=== PATIENT | male | born 1975 | race Hispanic/Latino ===

== ENCOUNTER 2019-08-03 17:39 | Observation (INO) | payer OTHER ==
[~2019-08-03] VITALS: Ht 177.8 cm; Wt 105.2 kg
[~2019-08-03 17:39] MED LIST: LOSARTAN POTAS100 MG PO; [UNRECOGNIZED DRUG - OTHER]
--- OUTSIDE RECORDS SUMMARY | 2019-08-03 17:43 | XMS REPORT ---
Author Author Michael Henry Organization [employer] Address Unknown Phone Unavailable Care Team Providers Care Position Classifier Name Role Phone Kaylee Henry Unavailable Allergies, Adverse Reactions, Alerts Substance Reaction Event Type penicillin Info Not Available Drug Allergy Problems Problem Type Condition Code Onset Dates Condition Statu s Assessment Vitamin D deficiency E55.9 Active Problem Prostatitis, unspecified prostatitis type N41.9 Active Assessment Essential hypertension I10 Activ e Problem Numbness and tingling of both legs R20.2 Active Problem Orthostatic hypotension I95.1 Acti ve Problem Mild acid reflux K21.9 Active Problem Former smoker Z87.891 Active Problem Essential hypertension I10 Activ e Problem Hypogonadism in male E29.1 Active Problem Vitamin D deficiency E55.9 Active Assessment Light headed R42 Active Assessment Hypogonadism in male E29.1 Active Assessment Mild acid reflux K21.9 Active Assessment Former smoker Z87.891 Active Medications Medication Code System Code Instructions Start Date End Date Status Dosage Vitamin D (Ergocalciferol) [facility] 61661043802 [id number] UNIT Orally onc e per week Active 1 capsule Excedrin Extra Strength ND 13715109250 250-250-65 MG Orally farhat ry 6 hrs Active 2 tablets as needed Testosterone Cypionate ND 36768177737 200 MG/ML Intramus cular every 2 weeks Mar 27, 2016 Active 1 ml Losartan Potassium-HCTZ [facility] 15803856980 100-25 MG Orally Once a day Active 1 tablet AndroGel Pump ND 14310249914 20.25 MG/ACT (1.62%) Transd ermal Once a day Mar 25, 2016 Active 1 application to eac h upper outer arm Vital Signs Date/Time: Apr 01, 2017 BMI 38.31 Index Weight 267 lbs Height 70 in Cardiac Monitoring Heart Rate 83 /min Blood Pressure Diastolic 94 mm Hg Blood Pressure Systolic 134 mm Hg Results No Known Results Summary Purpose [employer] Submission
--- OUTSIDE RECORDS SUMMARY | 2019-08-03 17:43 | XMS REPORT ---
Author Author Michael Murphy Organization [employer] Address Unknown Phone Unavailable Care Team Providers Care Associate Professor Of Sociology Name Role Phone Michela Murphy Unavailable Allergies No Known Allergies Problems Problem Type Condition Code Onset Dates Condition Statu s Problem Former smoker Z87.891 Active Problem Orthostatic hypotension I95.1 Acti ve Problem Hypogonadism in male E29.1 Active Problem Mixed hyperlipidemia E78.2 Active Problem Other chronic pain G89.29 Active Problem Obstructive sleep apnea syndrome G47.33 Active Problem Mild acid reflux K21.9 Active Problem Numbness and tingling of both legs R20.2 Active Problem Lumbago with sciatica, right side M54.41 Active Problem Lumbago with sciatica, left side M54.42 Active Problem Prostatitis, unspecified prostatitis type N41.9 Active Problem Vitamin D deficiency E55.9 Active Problem Essential hypertension I10 Activ e Medications Medication Code System Code Instructions Start Date End Date Status Dosage Losartan Potassium-HCTZ [facility] 49749476038 100-25 MG Orally Once a day Apr 26, 2017 Active 1 tablet Results No Known Results Summary Purpose [employer] Submission
--- OUTSIDE RECORDS SUMMARY | 2019-08-03 17:43 | XMS REPORT ---
Author Author Michael Murphy [facility] [employer] Address Unknown Phone Unavailable Care Team Providers Care Wire Threader Name Role Phone Michela Murphy Unavailable Allergies No Known Allergies Problems Problem Type Condition Code Onset Dates Condition Statu s Problem Hypogonadism in male E29.1 Active Problem Numbness and tingling of both legs R20.2 Active Problem Orthostatic hypotension I95.1 Acti ve Problem Prostatitis, unspecified prostatitis type N41.9 Active Problem Essential hypertension I10 Activ e Problem Former smoker Z87.891 Active Problem Vitamin D deficiency E55.9 Active Problem Obstructive sleep apnea syndrome G47.33 Active Problem Mixed hyperlipidemia E78.2 Active Problem Morbid obesity E66.01 Active Problem Lumbago with sciatica, left side M54.42 Active Problem Mild acid reflux K21.9 Active Problem Other chronic pain G89.29 Active Problem Lumbago with sciatica, right side M54.41 Active Medications Medication Code System Code Instructions Start Date End Date Status Dosage Losartan Potassium-HCTZ [facility] 24495747519 100-25 M G Orally Once a day (LAST REFILL. NEEDS TO BE SEEN ) Active 1 tab let Results No Known Results Summary Purpose [employer] Submission
--- OUTSIDE RECORDS SUMMARY | 2019-08-03 17:43 | XMS REPORT ---
Author Author Michael Mcarthur Organization [employer] Address Unknown Phone Unavailable Care Team Providers Care Forest Management Teacher Name Role Phone Jazmine Mcarthur CP Unavailable Allergies, Adverse Reactions, Alerts Substance Reaction Event Type penicillin Info Not Available Drug Allergy Problems Problem Type Condition Code Onset Dates Condition Statu s Problem Essential hypertension I10 Activ e Problem Hypogonadism in male E29.1 Active Problem Former smoker Z87.891 Active Problem Other chronic pain G89.29 Active Problem Lumbago with sciatica, right side M54.41 Active Problem Mixed hyperlipidemia E78.2 Active Problem Numbness and tingling of both legs R20.2 Active Problem Orthostatic hypotension I95.1 Acti ve Problem Lumbago with sciatica, left side M54.42 Active Problem Mild acid reflux K21.9 Active Assessment Varicose vein of leg I83.90 Active Assessment Mixed hyperlipidemia E78.2 Active Assessment Essential hypertension I10 Activ e Assessment Vitamin D deficiency E55.9 Active Assessment Lumbago with sciatica, left side M54.42 Active Assessment Hypogonadism in male E29.1 Active Assessment Other chronic pain G89.29 Active Problem Prostatitis, unspecified prostatitis type N41.9 Active Assessment Lumbago with sciatica, right side M54.41 Active Problem Vitamin D deficiency E55.9 Active Medications Medication Code System Code Instructions Start Date End Date Status Dosage Losartan Potassium-HCTZ ND 37698852219 100-25 MG Orally Once a day Apr 26, 2017 Active 1 tablet Excedrin Extra Strength ND 66137262699 250-250-65 MG Orally farhat ry 6 hrs Active 2 tablets as needed Vitamin D (Ergocalciferol) ND 73864934123 72232 UNIT Orally onc e per week Active 1 capsule AndroGel Pump ND 38459463052 20.25 MG/ACT (1.62%) Transd ermal Once a day June 03, 2017 Active 1 application to eac h shoulder in the morning Vitamin D (Ergocalciferol) [facility] 67179930457 51761 UNIT Ora lly once per week June 03, 2017 Nov 30, 2017 Active 1 capsule Vital Signs Date/Time: June 03, 2017 BMI 36.58 Index Weight 255 lbs Height 70 in Cardiac Monitoring Heart Rate 68 /min Blood Pressure Diastolic 82 mm Hg Blood Pressure Systolic 130 mm Hg Results No Known Results Summary Purpose [employer]Works Submission
--- OUTSIDE RECORDS SUMMARY | 2019-08-03 17:43 | XMS REPORT ---
Author Author Michael Servin Organization [employer] Address Unknown Phone Unavailable Care Team Providers Care Web Programmer Name Role Phone Henry Servin Unavailable Allergies No Known Allergies Problems Problem [...] with sciatica, left side M54.42 Active Assessment Acute non-recurrent maxillary sinusitis J01.00 Active Problem Prostatitis, unspecified prostatitis type N41.9 Active Problem Vitamin D deficiency E55.9 Active Problem Essential hypertension I10 Activ e Medications Medication Code System Code Instructions Start Date End Date Status Dosage Biaxin [facility] [id number] 500 mg Orally every 12 hrs Oct 29 8 Nov 08, 2017 Active 1 tablet Losartan Potassium-HCTZ ND 60371656882 100-25 MG Orally Once a day Apr 26, 2017 Active 1 tablet Excedrin Extra Strength [facility] 40077387054 250-250-65 MG Orally farhat ry 6 hrs Active 2 tablets as needed Vitamin D (Ergocalciferol) [facility] 21618305577 48151 UNIT Ora lly once per week June 03, 2017 Nov 30, 2017 Active 1 capsule AndroGel Pump [facility] 97876099618 20.25 MG/ACT (1.62%) Transd ermal Once a day June 03, 2017 Active 1 application to eac h shoulder in the morning Results No Known Results Summary Purpose [employer]ClinicalWorks Submission
--- OUTSIDE RECORDS SUMMARY | 2019-08-03 17:43 | XMS REPORT | Clinical Summary ---
Author Author [facility] Organization [facility] Address Unknown Phone Unavailable Care Team Providers Care Web Specialist Name Role Phone Asked, No Pcp PCP Unavailable Allergies Comments Active Allergy Reactions Severity Noted Date Penicillin Other (See 08/26/2018 Comments) Medications End Date Status Medication Sig Dispensed Refills Start Date Active losartan-hydrochlorothiaz 0 bill (HYZAAR) 100-25 mg 0 per tablet Active aspirin/acetaminophen/caf 2 tablets as 0 feine (EXCEDRIN EXTRA needed STRENGTH ORAL) 06/24/2019 azithromycin (ZITHROMAX) Take 1 tablet 6 tablet 0 250 MG tabletIndications: (250 mg 0 COVID-19 virus infection total) by mouth daily for 4 days. Take first 2 tablets together, then 1 every day until finished. 07/20/2019 albuterol (PROAIR HFA) 90 Inhale 2 1 Inhaler 0 mcg/actuation inhaler puffs every 4 0 (four) hours as needed for wheezing for up to 30 days. 07/20/2019 benzonatate (TESSALON) Take 1 21 capsule 0 100 MG capsule capsule (100 0 mg total) by mouth every 8 (eight) hours for 30 days. 08/01/2019 omeprazole (PriLOSEC) 20 Take 1 14 capsule 0 0 MG capsule capsule (20 0 mg total) by mouth daily for 14 days. Active Problems Not on file Encounters Care Team Description Date Type Specialty Emeterio Anderson MD Palpitations (Primary Dx) 07/31/2019 Emergency Emergency Medicine 07/31/2019 Travel Carlos Henley MD Abdominal pain, unspecified abdominal lo cation (Primary Dx); Liver mass 07/18/2019 Emergency Emergency Medicine Edmond Salas MD COVID-19 virus infection (Primary Dx); Viral pneumonia; Atypical chest pain 06/20/2019 Emergency Emergency Medicine 06/20/2019 Travel Danika Mckeon NP 06/12/2019 Telephone Internal Medicine Jesus Alberto Reagan MD Diarrhea, unspecified type (Primary Dx); Pharyngitis, unspecified etiology 06/09/2019 Emergency Emergency Medicine 06/09/2019 Travel after 08/02/2018 Social History Date Tobacco Use Types Packs/Day Years Used Former Smoker Cigarettes Smokeless Tobacco: Current User Drinks/Week oz/Week Comments Alcohol Use Not Currently Sex Assigned at Date Recorded Not on file Industry Job Start Date Occupation Not on file Not on file Not on file Travel End Travel History Travel Start No recent travel history available. Date Recorded COVID-19 Exposure Response 07/31/2019 9:28 AM CDT In the last month, have you been in contact with No / Unsure someone who was confirmed or suspected to have Coronavirus / COVID-19? Last Filed Vital Signs Reading Time Taken Comments Vital Sign 142/84 07/31/2019 11:10 AM CDT Blood Pressure 67 07/31/2019 11:10 AM CDT Pulse 36.4 C (97.5 F) 07/31/2019 9:25 AM CDT Temperature 20 07/31/2019 11:10 AM CDT Respiratory Rate 96% 07/31/2019 11:10 AM CDT Oxygen Saturation - - Inhaled Oxygen Concentration 106 kg (234 lb) 07/31/2019 9:20 AM CDT Weight 177.8 cm (5' 10") 07/31/2019 9:20 AM CDT Height 33.58 07/31/2019 9:20 AM CDT Body Mass Index Plan of Treatment Health Maintenance Due Date Last Done Comments INFLUENZA VACCINE 10/07/2019 Procedures Comments Procedure Name Priority Date/Time Associated Diag nosis XR CHEST 1 VW PORTABLE STAT 07/31/2019 10:54 AM CDT ESTIMATED GFR STAT 07/31/2019 9:35 AM CDT B NATRIURETIC PEP, I-STAT STAT 07/31/2019 9:35 AM CDT TROPONIN, I-STAT STAT 07/31/2019 9:35 AM CDT BASIC METABOLIC PANEL STAT 07/31/2019 9:35 AM CDT HC COMPLETE BLD COUNT STAT 07/31/2019 W/AUTO DIFF 9:35 AM CDT ECG 12-LEAD STAT 07/31/2019 9:22 AM CDT ECG ED PRELIMINARY Routine 07/31/2019 INTERPRETATION 9:[address] ABDOMEN PELVIS W STAT 07/18/2019 CONTRAST 6:[address] ANGIOGRAM PE CHEST STAT 07/18/2019 6:16 PM CDT URINALYSIS STAT 07/18/2019 5:06 PM CDT ESTIMATED GFR STAT 07/18/2019 5:00 PM CDT AMYLASE LEVEL STAT 07/18/2019 5:00 PM CDT TROPONIN, I-STAT STAT 07/18/2019 5:00 PM CDT COMPREHENSIVE METABOLIC STAT 07/18/2019 PANEL 5:00 PM CDT HC COMPLETE BLD COUNT STAT 07/18/2019 W/AUTO DIFF 5:00 PM CDT ECG 12-LEAD STAT 07/18/2019 4:59 PM CDT ECG ED PRELIMINARY Routine 07/18/2019 INTERPRETATION 4:[address] ANGIOGRAM PE CHEST STAT 06/20/2019 8:50 PM CDT ESTIMATED GFR STAT 06/20/2019 7:48 PM CDT TROPONIN, I-STAT STAT 06/20/2019 7:48 PM CDT HC COMPLETE BLD COUNT STAT 06/20/2019 W/AUTO DIFF 7:48 PM CDT COMPREHENSIVE METABOLIC STAT 06/20/2019 PANEL 7:48 PM CDT ECG 12-LEAD STAT 06/20/2019 7:46 PM CDT ECG ED PRELIMINARY Routine 06/20/2019 INTERPRETATION 7:41 PM CDT XR CHEST 2 VW STAT 06/09/2019 11:39 AM CDT COVID BIOREF (NCOVB) Routine 06/09/2019 11:15 AM CDT RESPIRATORY PATHOGEN Routine 06/09/2019 PANEL 11:15 AM CDT STREP SCREEN CULTURE Routine 06/09/2019 11:15 AM CDT INFLUENZA ANTIGEN TEST, Routine 06/09/2019 REFLEX NEGATIVE TO RPP 11:15 AM CDT GROUP A STREP, RAPID Routine 06/09/2019 ANTIGEN 11:15 AM CDT after 08/02/2018 Results * XR Chest 1 Vw Portable (07/31/2019 10:54 AM CDT) Specimen Narrative Performed At EXAMINATION: XR CHEST 1 VW PORTABLE [facility] CLINICAL HISTORY: 43 years Male palpi tations COMPARISON: 06/09/2019 IMPRESSION: No acute cardiopulmonary disease. FINDINGS: The cardiomediastinal silhouette, lungs , and regional skeletal structures are within normal limits for age. [facility]-[id number] Procedure Note Interface, Radiology Results Incoming - 07/31/2019 10:58 AM CDT EXAMINATION: XR CHEST 1 VW PORTABLE CLINICAL HISTORY: 43 years Male palpitations COMPARISON: 06/09/2019 IMPRESSION: No acute cardiopulmonary disease. FINDINGS: The cardiomediastinal silhouette, lungs, and regional skeletal structures are within normal limits for age. [facility]-[id number] Performing Organization Address City/State/Zipcode Ph one Number [facility] [address] [place] [address] * Estimated GFR (07/31/2019 9:35 AM CDT) Only the most recent of 3 results within the time period is included. Estimated GFR >=90 mL/min/1.73 m2 [facility] Comment: [facility] Catergory Units [place] Interpretation EMERGENCY CARE G1 >=90 CENTER Normal or high G2 60-89 Mildly decreased G3a 45-59 Mildly to moderately decreased G3b 30-44 Moderately to severely decreased G4 15-29 Severely decreased G5 <15 Kidney failure The eGFR was calculated using the Chronic Kidney Disease Epidemiology Collaboration (CKD-EPI) equation. Interpretation is based on recommendations of the National Kidney Foundation-Kidney Disease Outcomes Quality Initiative (NKF-KDOQI) published in 2014. Specimen Performing Organization Address City/[facility] Ph one [place] [address] PATHOLOGY AND GENOMIC MEDICINE[address] * Troponin, I-Stat (07/31/2019 9:35 AM CDT) Only the most recent of 3 results within the time period is included. Troponin, 0.00 0.00 - 0.08 ng/mL [facility] I-Stat Comment: [facility] 0.09 - 1.49 ng/ml [place] May indicate increased risk EMERGENCY CARE of acute CENTER coronary syndrome. >=1.5 ng/ml Consistent with acute myocardial infarction. The diagnostic value of a single normal or non-diagnostic result is questionable. Serial samples at 2-6 hour intervals are required to rule out acute myocardial injury. Specimen Blood Performing Organization Address [facility] one [place] [address] PATHOLOGY AND GENOMIC MEDICINE[address] * B natriuretic pep, I-Stat (07/31/2019 9:35 AM CDT) BNP, I-Stat <20 0 - 100 pg/mL [facility] Specimen Blood Performing Organization Address City/[facility] Ph one [place] [address] PATHOLOGY AND GENOMIC MEDICINE[address] * CBC with platelet and differential (07/31/2019 9:35 AM CDT) Only the most recent of 3 results within the time period is included. WBC 6.55 4.50 - 11.00 k/uL [facility] RBC 4.54 4.40 - 6.00 m/uL [facility] HGB 14.7 14.0 - 18.0 g/dL [facility] HCT 40.7 (L) 41.0 - 51.0 % [facility] MCV 89.6 82.0 - 100.0 fL [facility] MCH 32.4 27.0 - 34.0 pg [facility] MCHC 36.1 31.0 - 37.0 g/dL [facility] RDW - SD 42.1 37.0 - 55.0 fL [facility] MPV 9.4 8.8 - 13.2 fL [facility] Platelet count 228 150 - 400 k/uL [facility] Neutrophils 55.9 39.0 - 69.0 % [facility] Lymphocytes 33.6 25.0 - 45.0 % [facility] Monocytes 8.2 0.0 - 10.0 % [facility] Eosinophils 1.8 0.0 - 5.0 % [facility] Basophils 0.5 0.0 - 1.0 % [facility] Specimen Blood Performing Organization Address City/State/[facility] Ph one Number DEPARTMENT OF [address] [place] [address] PATHOLOGY AND GENOMIC MEDICINE, [address] * Basic metabolic panel (07/31/2019 9:35 AM CDT) Glucose 98 73 - 118 mg/dL [facility] BUN 11 7 - 22 mg/dL [facility] Calcium 8.9 8.0 - 10.3 mg/dL [facility] Creatinine 0.7 0.7 - 1.2 mg/dL [facility] Sodium 136 128 - 145 mEq/L [facility] Potassium 3.2 (L) 3.6 - 5.1 mEq/L [facility] Chloride 103 98 - 108 mEq/L [facility] CO2 27 18 - 33 mEq/L [facility] Anion gap 6@ANIO (L) 7 - 15 mEq/L [facility] Specimen Blood Performing Organization Address City/[facility] Ph one Number DEPARTMENT OF [address] [place] [address] PATHOLOGY AND GENOMIC MEDICINE, [address] * ECG 12 lead (07/31/2019 9:22 AM CDT) Only the most recent of 3 results within the time period is included. Ventricular 68 [facility] rate Atrial rate 68 [facility] NM interval 166 [facility] QRSD interval 82 [facility] QT interval 382 [facility] QTC interval 406 [facility] P axis 1 53 [facility] QRS axis 1 59 [facility] T wave axis 32 [facility] EKG impression Normal sinus rhythm with sinus [facility] MU SE arrhythmia-Normal ECG-In automated comparison with ECG of 18-JUL-2019 16:59,-Nonspecific T wave abnormality has replaced inverted T waves in Inferior leads- Specimen Narrative Performed At This result has an attachment that is n ot available. Performing Organization Address City/[facility] Ph one Number [facility] MUSE [address] [place] [address] * ECG ED Preliminary Interpretation - Not an Order (07/31/2019 9:20 AM CDT) Only the most recent of 3 results within the time period is included. Narrative Performed At Emeterio Anderson MD 07/31/2019 1 1:19 AM ECG ED Preliminary Interpretation - Not an Order Performed by: Emeterio Anderson MD Authorized by: Emeterio Anderson MD ECG reviewed by ED Physician in the abs ence of a distribution engineer: yes Interpretation: Interpretation: normal Rate: ECG rate: 68 ECG rate assessment: normal Rhythm: Rhythm: sinus rhythm Ectopy: Ectopy: none QRS: QRS axis: Normal QRS intervals: Normal Conduction: Conduction: normal ST segments: ST segments: Normal T waves: T waves: normal * CT Abdomen Pelvis W Contrast (07/18/2019 6:18 PM CDT) Specimen Narrative Performed At EXAMINATION: CT ABDOMEN PELVIS W CONTRAST [facility] CLINICAL HISTORY: left sided abdomina l pain TECHNIQUE: Multiple axial images of the abdomen and pelvis were obtained following intravenous administration of iodinated contrast. Sagittal and coronal computerized reformatted images were al so obtained.Automatic exposure control or iterative reconstruction techniques used to reduc e dose. COMPARISON: None. Impression: 1.Liver appears fatty infiltrated, with possible lesion in the right lobe measuring 1.2 cm. Adrenals, pancreas, k idneys, and spleen show no focal lesions. There is also a prominent and tortuous vessel at the head of the pancreas, not well characterized. On previous CT chest, this appears to r epresent collateralized arterial pathway such as an enlarged gastroduodenal mindy ry related to celiac axis stenosis. This could be further defined with CTA of th e abdomen. 2.Appendix is unremarkable. No evidence for acute diverticulitis. No bowel obstruction seen. Osseous structures ar e intact. Summary: 1.No acute intra-abdominal abnormalitie s are noted. 2.Follow-up outpatient MRI abdomen eval uation recommended for 1.2 cm right lobe liver lesion. [id number] Procedure Note Interface, Radiology Results Incoming - 07/18/2019 6:33 PM CDT EXAMINATION: CT ABDOMEN PELVIS W CONTRAST CLINICAL HISTORY: left sided abdominal pain TECHNIQUE: Multiple axial images of the abdomen and pelvis were obtained following intravenous administration of iodinated contrast. Sagittal and coronal computerized reformatted images were also obtained.Automatic exposure control or iterative reconstruction techniques used to reduce dose. COMPARISON: None. Impression: 1.Liver appears fatty infiltrated, with possible lesion in the right lobe measuring 1.2 cm. Adrenals, pancreas, kidneys, and spleen show no focal lesions. There is also a prominent and tortuous vessel at the head of the pancreas, not well characterized. On previous CT chest, this appears to represent collateralized arterial pathway such as an enlarged gastroduodenal artery related to celiac axis stenosis. This could be further defined with CTA of the abdomen. 2.Appendix is unremarkable. No evidence for acute diverticulitis. No bowel obstruction seen. Osseous structures are intact. Summary: 1.No acute intra-abdominal abnormalities are noted. 2.Follow-up outpatient MRI abdomen evalu ation recommended for 1.2 cm right lobe liver lesion. [id number] Performing Organization Address City/State/Zipcode Ph one Number [facility] [address] [place] [address] * CT Angiogram Pe Chest (07/18/2019 6:16 PM CDT) Only the most recent of 2 results within the time period is included. Specimen Narrative Performed At [facility] CLINICAL HISTORY: PE suspected high pretest prob TECHNIQUE: CT angiographic images of the chest were obtained during intravenous administration of iodinated contrast. Computerized reformatted images and 3-D MIP images were also obt ained and archived (CT pulmonary embolus protocol). CT imaging was performed with iterative reconstruction techniques and/or automated exposure control to reduce ra diation dose COMPARISON: 06/20/2019 FINDINGS: Pulmonary arterial enhancement is techn ically adequate. No pulmonary embolism. Lungs are clear. Previously described v jayashree subtle groundglass opacities have resolved. Airways are patent. No pleural or pericardial effusion. The heart is normal in size. No aortic aneurysm or dissection. The liver is fatty. Bones are intact. IMPRESSION: No pulmonary embolism or other acute pr ocess. [id number] Procedure Note Interface, Radiology Results Incoming - 07/18/2019 6:28 PM CDT EXAMINATION: CT ANGIOGRAM PE CHEST CLINICAL HISTORY: PE suspected high pretest prob TECHNIQUE: CT angiographic images of the chest were obtained during intravenous administration of iodinated contrast. Computerized reformatted images and 3-D MIP images were also obtained and archived (CT pulmonary embolus protocol). CT imaging was performed with iterative reconstruction techniques and/or automated exposure control to reduce radiation dose COMPARISON: 06/20/2019 FINDINGS: Pulmonary arterial enhancement is technically adequate. No pulmonary embolism. Lungs are clear. Previously described very subtle groundglass opacities have resolved. Airways are patent. No pleural or pericardial effusion. The heart is normal in size. No aortic aneurysm or dissection. The liver is fatty. Bones are intact. IMPRESSION: No pulmonary embolism or other acute process. [facility]-[id number] Performing Organization Address City/[facility] one Number [facility] [address] [address] * Urinalysis (07/18/2019 5:06 PM CDT) Glucose, UA Negative Negative [facility] Bilirubin, UA Negative Negative [facility] Ketones, UA Negative Negative [facility] Specific 1.010 1.001 - 1.035 [facility] gravity, UA [facility] Blood, UA Trace (A) Negative [facility] pH, UA 6.0 5.0 - 8.5 [facility] Protein, UA Negative Negative [facility] Urobilinogen, <2.0 <2.0 [facility] Nitrite, UA Negative Negative [facility] Leukocyte Negative Negative [facility] esterase, UA [facility] Color, UA Yellow [facility] Appearance, UA Clear [facility] Specimen Urine Performing Organization Address City/[facility] [place] [address] PATHOLOGY AND GENOMIC MEDICINE, [address] * Amylase level (07/18/2019 5:00 PM CDT) Amylase 50 14 - 97 U/L [facility] Specimen Blood Performing Organization Address City/[facility] Ph one [place] [address] PATHOLOGY AND GENOMIC MEDICINE, [address] * Comprehensive metabolic panel (07/18/2019 5:00 PM CDT) Only the most recent of 2 results within the time period is included. Sodium 140 128 - 145 mEq/L [facility] Potassium 3.3 (L) 3.6 - 5.1 mEq/L [facility] CO2 28 18 - 33 mEq/L [facility] Chloride 105 98 - 108 mEq/L [facility] Glucose 91 73 - 118 mg/dL [facility] Calcium 9.6 8.0 - 10.3 mg/dL [facility] BUN 8 7 - 22 mg/dL [facility] Creatinine 0.9 0.7 - 1.2 mg/dL [facility] Alkaline 81 53 - 128 U/L [facility] phosphatase [facility] ALT 34 10 - 47 U/L [facility] AST 32 11 - 38 U/L [facility] Total bilirubin 0.9 0.2 - 1.6 mg/dL [facility] Albumin 4.5 3.3 - 5.5 g/dL [facility] Protein 7.6 6.4 - 8.1 g/dL [facility] Anion gap 7@ANIO 7 - 15 mEq/L [facility] A/G ratio 1.5 0.7 - 3.8 [facility] Specimen Blood Performing Organization Address City/State/[facility] Ph one Number DEPARTMENT OF [address] [place] [address] PATHOLOGY AND GENOMIC MEDICINE, [address] * XR Chest 2 Vw (06/09/2019 11:39 AM CDT) Specimen Narrative Performed At EXAMINATION: XR CHEST 2 VW [facility] CLINICAL HISTORY: cough sore throat COMPARISON: None. IMPRESSION: Heart and mediastinum: Cardiomediastina l silhouette is normal in contour. Lungs and pleura: Lungs are clear. Ther e is no focal airspace disease, pleural effusion or pneumothorax. Bones: No acute osseous abnormality. [id number] Dictated and approved by radiology resi dent/fellow: Everardo Cespedes M.D. I, Jorje Vasquez MD, personally reviewed the images and resident's/fellow's findings and agree with the final repor t. Procedure Note Interface, Radiology Results Incoming - 06/09/2019 12:50 PM CDT EXAMINATION: XR CHEST 2 VW CLINICAL HISTORY: cough sore throat COMPARISON: None. IMPRESSION: Heart and mediastinum: Cardiomediastinal silhouette is normal in contour. Lungs and pleura: Lungs are clear. There is no focal airspace disease, pleural effusion or pneumothorax. Bones: No acute osseous abnormality. [facility]-[id number] Dictated and approved by residential solar sales consultant/fellow: Everardo Cespedes M.D. I, Jorje Vasquez MD, personally reviewed the images and resident's/fellow's findings and agree with the final report. Performing Organization Address City/State/[place] [address] * Respiratory pathogen panel (06/09/2019 11:15 AM CDT) [facility] Respiratory Negative for all pathogens [facility] pathogen panel tested: [facility] Negative for Adenovirus [facility] Negative for Coronavirus HKU1 Negative for Coronavirus NL63 Negative for Coronavirus 229E Negative for Coronavirus OC43 Negative for Human Metapneumovirus Negative for Rhinovirus/Enterovirus Negative for Influenza A Negative for Influenza A/H1 Negative for Influenza A/H3 Negative for Influenza A/H1-2009 Negative for Influenza B Negative for Parainfluenza Virus 1 Negative for Parainfluenza Virus 2 Negative for Parainfluenza Virus 3 Negative for Parainfluenza Virus 4 Negative for Respiratory Syncytial Virus Negative for Bordetella pertussis Negative for Chlamydophila pneumoniae Negative for Mycoplasma pneumoniae This real-time PCR assay detects the presence of nucleic acids (RNA or DNA) for the respiratory pathogens listed. A result of "Not-detected" does not exclude the possibility of the presence of one or more pathogens at concentrations less than the detectable limits of the assay. Comment: Specimen Information Specimen Source: Nares Specimen Site: Right Specimen Nares - Right Performing Organization Address [facility] Ph one Number [facility] DEPARTMENT OF [address] [place] [address] PATHOLOGY AND GENOMIC MEDICINE [facility] WORSHIP [address] [place] [address] * Influenza antigen test, reflex negative to RPP (06/09/2019 11:15 AM CDT) [facility] Influenza Negative for Influenza A/B [facility] antigen antigen. [facility] Comment: HOSPITAL Specimen Information Specimen Source: Nares Specimen Site: Right Specimen Nares - Right Performing Organization Address City/State/Zipcode Ph one Number [facility] DEPARTMENT OF [address] [place] [address] PATHOLOGY AND GENOMIC MEDICINE [facility]IP [address] [place] [address] * COVID BioRef (NCOVB) (06/09/2019 11:15 AM CDT) [facility] COVID BioRef Presumptive Positive for Not Detected BIORE FERENCE (NCOVB) 2019-nCoV (A) LAB Comment: Testing performed at [facility] [address] [address] NOTE: The viral concentration is likely to be near or below the limit of detection. Re-collection of a new sample is suggested, if clinically indicated. NOTE: The COVID-19 assay has been cleared by the U.S. Food and Drug Administration under the Emergency Use Authorization (EUA). [email or web address] is designated as a high complexity laboratory by the Clinical Laboratory Improvement Amendments of 1988(CLIA) and is qualified to perform this test. ASSAY INFORMATION: Real Time RT-PCR Specimen Serum Performing Organization Address [facility] Ph one Number [facility] DEPARTMENT OF [address] [place] [address] PATHOLOGY AND GENOMIC MEDICINE [facility] [address] [place] [id number] * Group A strep, rapid antigen (06/09/2019 11:15 AM CDT) Group A strep, Negative for Group A [facility] rapid antigen Streptococcus antigen. [facility] result Comment: [place] Specimen [facility] EMERGENCY CARE Specimen Source: Throat CENTER Specimen Site: Not otherwise specified Specimen Throat - Not otherwise specified Performing Organization Address [facility] Ph one [place] [address] PATHOLOGY AND GENOMIC MEDICINE, [facility] * Strep screen culture (06/09/2019 11:15 AM CDT) Strep screen No beta hemolytic Streptococci [place] N culture isolate isolated [facility] Comment: HOSPITAL Specimen Information Specimen Source: Throat Specimen Site: Not otherwise specified Specimen Throat - Not otherwise specified Performing Organization Address [facility] [place] one Number [facility] DEPARTMENT OF [address] [place] [address] PATHOLOGY AND [facility] [place] [address] HOSPITAL after 08/02/2018 Additional Health Concerns Resolved Time Infection Noted Time Coronavirus COVID-19 (D+C) 06/13/2019 11:00 AM CDT Insurance Type Payer Benefit Subscriber ID Effective Phone Address Plan / Dates Group PPO AETNA AETNA PPO xxxxxxxxxx [id number] OPEN resent CHOICE Advance Directives For more information, please contact: [phone] Patient [employer] Explanation Type Date Recorded Advance Directives, 06/20/2019 7:53 PM Living Will and 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
--- OUTSIDE RECORDS SUMMARY | 2019-08-03 17:43 | XMS REPORT ---
Author Author Michael Murphy [facility] eClinicalWorks Address Unknown Phone Unavailable Care Team Providers Care Crossing Guard Name Role Phone Michela Murphy Unavailable Allergies [...] Problem Mild acid reflux K21.9 Active Assessment Hypogonadism in male E29.1 Active Problem Prostatitis, unspecified prostatitis type N41.9 Active Problem Vitamin D deficiency E55.9 Active Medications Medication Code System Code Instructions Start Date End Date Status Dosage AndroGel Pump [facility] [place] 2] [id number] 20.25 MG/ACT (1.62%) Transd ermal Once a day June 03, 2017 Active 1 application to eac h shoulder in the morning Results No Known Results Summary Purpose eClinicalWorks Submission
--- OUTSIDE RECORDS SUMMARY | 2019-08-03 17:43 | XMS REPORT | Continuity of Care Document ---
Author Author Agiliance SINGH Antunez Organization [employer] Address Unknown Phone Unavailable Care Team Providers Care Pathology Laboratory Aides Teacher Name Role Phone [employer] Unavailable Un available Problems Problem Status Onset Date Classification Date Reported Comments Source Essential hypertension Active Problem 07/28/2019 [facility] Hypogonadism in male Active Problem 07/28/2019 [facility] Former smoker Active Problem 05/16/2018 [facility] Prostatitis, unspecified prostatitis type Active Diagnosis 06/22/2018 [facility] Vitamin D deficiency Active Problem 07/28/2019 [facility] Other chronic pain Active Problem 07/28/2019 [facility] Lumbago with sciatica, right side Active Diagnosis 0 06/22/2018 [facility] Mixed hyperlipidemia Active Problem 07/28/2019 [facility] Numbness and tingling of both legs Active Problem 01/2019 [facility] Orthostatic hypotension Active Problem 07/13/2019 [facility] Lumbago with sciatica, left side Active Diagnosis 0 06/22/2018 [facility] Mild acid reflux Active Problem 07/28/2019 [facility] Light headed Active Diagnosis 04/03/2017 [facility] Varicose vein of leg Active Diagnosis 06/16/2017 [facility] Obstructive sleep apnea syndrome Active Problem [facility] Morbid obesity Active Problem 07/28/2019 [facility] Acute non-recurrent maxillary sinusitis Active Diagnosis 11/07/2017 [facility] Fatigue Active Diagnosis 11/07/2017 [facility] Chest pain Active Diagnosis 11/07/2017 [facility] Acute nasopharyngitis Active Problem 10/04/2015 [facility] Low back pain at multiple sites Active Diagnosis 0 03/13/2016 [facility] Heat exhaustion Active Diagnosis 09/27/2015 [facility] Hospital discharge follow-up A ctive Diagnosis 0 09/27/2015 [facility] Daytime somnolence Active Problem 07/13/2019 [facility] Snoring Active Problem 07/13/2019 [facility] Screening for prostate cancer Active Diagnosis 0 06/22/2018 [facility] Screening for colon cancer Act jannette Diagnosis 0 06/22/2018 [facility] Routine physical examination A ctive Diagnosis 0 06/22/2018 [facility] COVID-19 virus infection Active Problem 07/13/2019 [facility] Anxiety Active Problem 07/28/2019 [facility] Other specified respiratory disorders Active Diagnosis 06/20/2019 [facility] Complaint of paresthesia Active Problem 07/28/2019 [facility] Psychophysiological insomnia A ctive Problem [facility] History of 2019 novel coronavirus disease (COVID-19) Active Problem 07/28/2019 [facility] Sore throat Active Diagnosis 07/28/2019 [facility] Medications Medication Details Route Status Patient Instructions Ordering Provider Order Date Source Zithromax Z-Juan 2 tablets on the first day, then 1 tablet daily for 4 days Orally Active 250 MG Orally Once a day [place] 07/20/2019 [facility] Tessalon Perles 1 capsule as n eeded Orally Active 100 MG Orally Three times a day [place] 07/20/2019 [facility] ProAir HFA 1 puff as needed Inhalation Active 108 (90 Base) MCG/ACT Inhalation every 4 hrs [place] 06/15/2019 [facility] HydrOXYzine HCl 1 tablet as ne eded Orally Active 10 MG Orally every -6 8 hrs [place] 06/15/2019 [facility] Biaxin 1 tablet Orally Active 500 mg Orally every 12 hrs [place] 10/29/2017 [facility] Medrol as directed & to be sta rted mon. am as discussed w/ pt Orally Active 4 mg Orally as directed over 6 days [place] 10/22/2017 [facility] AndroGel Pump 1 application to each shoulder in the morning Transdermal Active 20.25 MG/ACT (1.62%) Transdermal Once a day [place] 06/03/2017 [facility] Vitamin D (Ergocalciferol) 1 c apsule Orally Active 09381 UNIT Orally once per week LAST REFILL, NEEDS BLOOD WORK Bhupinder Gilbert 06/03/2017 [facility] Losartan Potassium-HCTZ 1 tabl et Orally Active 100-25 MG Orally Once a day Ghebranious 04/26/2017 [facility] Testosterone Cypionate 1 ml Intramuscular Active 200 MG/ML Intramuscular every 2 weeks [place] 03/27/2016 [facility] Testosterone Cypionate 1 ml Intramuscular Active 200 MG/ML Intramuscular every 2 weeks Carl 03/27/2016 [facility] Vitamin D (Ergocalciferol) 1 c apsule Orally Active 96313 UNIT Orally once per week [place] 03/27/2016 [facility] AndroGel Pump 1 application to each upper outer arm Transdermal Active 20.25 MG/ACT (1.62%) Transdermal Once a day [place] 03/25/2016 [facility] AndroGel Pump 1 application to each upper outer arm Transdermal Active 20.25 MG/ACT (1.62%) Transdermal Once a day [place] 03/25/2016 [facility] Medrol (Juan) as directed Orally Active 4 MG Orally as directed Carl 03/10/2016 [facility] Naproxen 1 tablet as needed Orally Active 500 MG Orally every 12 hrs prn [place] 03/10/2016 [facility] Flomax [address] capsule [address] the same meal each day Orally Active 0.4 MG Orally Once a day Ghebr anious 07/20/2015 [facility] Vitamin D (Ergocalciferol) 1 c apsule Orally Active 93667 UNIT Orally weekly [place] 11/21/2014 [facility] Vitamin D (Ergocalciferol) 1 c apsule Orally Active 16620 UNIT Orally once per week LAST REFILL, NEEDS BLOOD WORK [place] [facility] Excedrin Extra Strength 2 tabl ets as needed Orally Active 250-250-65 MG Orally every 6 hrs [place] [facility] Losartan Potassium-HCTZ 1 tabl et Orally Active 100-25 MG Orally Once a day [place] [facility] Excedrin Extra Strength 2 tabl ets as needed Orally Active 250-250-65 MG Orally every 6 hrs [place] [facility] Losartan Potassium-HCTZ TAKE 1 TABLET BY MOUTH EVERY DAY NA Active 100-25 MG G[place]bran[place] [facility] Citalopram Hydrobromide 1 tabl et Orally Active 10 MG Orally Once a day [place] [facility] Trazodone HCl 1 tablet at bedt ricardo as needed Orally Active 50 MG Orally Once a day [place] [facility] Allergies, Adverse Reactions, Alerts Substance Category Reaction Severity Reaction type Status Date Reported Comments Source penicillin Adverse Reaction Info Not Available Adverse Reaction Active 06/15/2019 [facility] Immunizations Immunization Date Given Site Status Last Updated Comments Source FLU 3YRS & [place] [address] 10/01/2015 completed [facility] PNEUMOCOCCAL VACCINE 10/01/2015 completed [facility] Results No Data Provided for This Section Pathology Reports No Data Provided for This Section Diagnostic Reports No Data Provided for This Section Consultation Notes No Data Provided for This Section Discharge Summaries No Data Provided for This Section History and Physicals No Data Provided for This Section Vital Signs Vital Sign Value Date Comments Source Weight 263 08/26/2018 [facility] Height 70 0 08/26/2018 [facility] Heart Rate 72 08/26/2018 [facility] Diastolic (mm Hg) 84 08/26/2018 [facility] Systolic (mm Hg) 132 08/26/2018 [facility] Weight 260 06/21/2018 [facility] Height 70 0 06/21/2018 [facility] Heart Rate 75 06/21/2018 [facility] Diastolic (mm Hg) 92 06/21/2018 [facility] Systolic (mm Hg) 128 06/21/2018 [facility] Weight 260 10/22/2017 [facility] Height 70 0 10/22/2017 [facility] Temperature Oral (F) 97.7 F 10/22/2017 [facility] Heart Rate 75 10/22/2017 [facility] Diastolic (mm Hg) 86 10/22/2017 [facility] Systolic (mm Hg) 134 10/22/2017 [facility] Weight 255 06/03/2017 [facility] Height 70 0 06/03/2017 [facility] Heart Rate 68 06/03/2017 [facility] Diastolic (mm Hg) 82 06/03/2017 [facility] Systolic (mm Hg) 130 06/03/2017 [facility] Weight 267 04/01/2017 [facility] Height 70 0 04/01/2017 [facility] Heart Rate 83 04/01/2017 [facility] Diastolic (mm Hg) 94 04/01/2017 [facility] Systolic (mm Hg) 134 04/01/2017 [facility] Weight 260 03/10/2016 [facility] Height 70 0 03/10/2016 [facility] Heart Rate 70 03/10/2016 [facility] Diastolic (mm Hg) 74 03/10/2016 [facility] Systolic (mm Hg) 134 03/10/2016 [facility] Weight 256 10/01/2015 [facility] Height 70 0 10/01/2015 [facility] Heart Rate 84 10/01/2015 [facility] Diastolic (mm Hg) 86 10/01/2015 [facility] Systolic (mm Hg) 144 10/01/2015 [facility] Weight 262 09/23/2015 [facility] Height 70 0 09/23/2015 [facility] Heart Rate 94 09/23/2015 [facility] Diastolic (mm Hg) 64 09/23/2015 [facility] Systolic (mm Hg) 116 09/23/2015 [facility] Weight 260 01/28/2015 [facility] Height 70 1 03/30/2014 [facility] Heart Rate 80 01/28/2015 [facility] Diastolic (mm Hg) 80 01/28/2015 [facility] Systolic (mm Hg) 130 01/28/2015 [facility] Encounters Location Location Details Encounter Type Encounter Number Reason For Visit Attending Provider ADM Date DC Date Status Source [facility] [employer] Physical- Came in on Thursday 11/16, but forms have to be filled out by or [id number] 11/20/2014 11/20/2014 [facility] [employer] Physical- Came in on Thursday 11/16, but forms have to be filled out by or [id number] 11/20/2014 11/20/2014 [facility] [employer] Physical- Came in on Thursday 11/16, but forms have to be filled out by or [id number] 11/20/2014 11/20/2014 [facility] [employer] Physical- Came in on Thursday 11/16, but forms have to be filled out by or [id number] 11/20/2014 11/20/2014 [facility] [employer] Physical- Came in on Thursday 11/16, but forms have to be filled out by or [id number] 11/20/2014 11/20/2014 [facility] [employer] Physical- Came in on Thursday 11/16, but forms have to be filled out by or [id number] 11/20/2014 11/20/2014 [facility] [employer] Physical- Came in on Thursday 11/16, but forms have to be filled out by or [id number] 11/20/2014 11/20/2014 [facility] [employer] Physical- Came in on Thursday 11/16, but forms have to be filled out by or [id number] 11/20/2014 11/20/2014 [facility] lab results - LMOM [id number] 11/21/2014 11/21/2014 [facility] lab results - LMOM [id number] 11/21/2014 11/21/2014 [facility] lab results - LMOM [id number] 11/21/2014 11/21/2014 [facility] lab results - LMOM [id number] 11/21/2014 11/21/2014 [facility] lab results - LMOM [id number] 11/21/2014 11/21/2014 [facility] lab results - LMOM [id number] 11/21/2014 11/21/2014 [facility] lab results - LMOM [id number] 11/21/2014 11/21/2014 [facility] lab results - LMOM [id number] 11/21/2014 11/21/2014 [facility] not feeling good [id number] 01/28/2015 01/28/2015 [facility] not feeling good [id number] 01/28/2015 01/28/2015 [facility] not feeling good [id number] 01/28/2015 01/28/2015 [facility] not feeling good [id number] 01/28/2015 01/28/2015 [facility] not feeling good [id number] 01/28/2015 01/28/2015 [facility] not feeling good [id number] 01/28/2015 01/28/2015 [facility] not feeling good [id number] 01/28/2015 01/28/2015 [facility] not feeling good [id number] 01/28/2015 01/28/2015 [facility] Unknown [id number] 07/21/2015 07/21/2015 [facility] Unknown [id number] 07/21/2015 07/21/2015 [facility] Unknown [id number] 07/21/2015 07/21/2015 [facility] Unknown [id number] 07/21/2015 07/21/2015 [facility] Unknown [id number] 07/21/2015 07/21/2015 [facility] Unknown [id number] 07/21/2015 07/21/2015 [facility] Unknown [id number] 07/21/2015 07/21/2015 [facility] FOLLOW UP FROM ER [id number] 09/23/2015 09/23/2015 [facility] FOLLOW UP FROM ER [id number] 09/23/2015 09/23/2015 [facility] FOLLOW UP FROM ER [id number] 09/23/2015 09/23/2015 [facility] FOLLOW UP FROM ER [id number] 09/23/2015 09/23/2015 [facility] FOLLOW UP FROM ER [id number] 09/23/2015 09/23/2015 [facility] FOLLOW UP FROM ER [id number] 09/23/2015 09/23/2015 [facility] Referral [id number] 09/24/2015 09/24/2015 [facility] Referral [id number] 09/24/2015 09/24/2015 [facility] Referral [id number] 09/24/2015 09/24/2015 [facility] Referral [id number] 09/24/2015 09/24/2015 [facility] Referral [id number] 09/24/2015 09/24/2015 [facility] TMT- [id number] 10/01/2015 10/01/2015 [facility] TMT- [id number] 10/01/2015 10/01/2015 [facility] TMT- [id number] 10/01/2015 10/01/2015 [facility] TMT-Saji [id number] 10/01/2015 10/01/2015 [facility] CHECK BLOOD SUGAR [id number] 03/10/2016 03/10/2016 [facility] CHECK BLOOD SUGAR [id number] 03/10/2016 03/10/2016 [facility] CHECK BLOOD SUGAR [id number] 03/10/2016 03/10/2016 [facility] Clinical Advice During Busin ess Hours [id number] 03/23/2016 03/23/2016 [facility] Clinical Advice During Busin ess Hours [id number] 03/23/2016 03/23/2016 [facility] Unknown [id number] 03/27/2016 03/27/2016 [facility] Procedures No Data Provided for This Section Assessment and Plan No Data Provided for This Section Plan of Care No Data Provided for This Section Social History Social History Date Source Social History ElementQualifiersDate Rep orted 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 Status , Is cook islander your prim riki language? Yes Mar 27, 2016 Flu Vaccine: . 01/2016Mar 27, 2016 children . 4 Mar 27, 2016 Depression Screening: . negative Mar 27, 2016 Tobacco Use: . Additional Findings: Tobacco User Rocio ws tobacco, Are you a: current, How many packs per day? 1 can every 3 days Mar 27, 2016 Use of recreational / street drugs? . Answer: No Mar 27, 2016 Last Colonoscopy: . never Mar 27, 2016 Marital Status: . Nadir Ram Mar 27, 2016 Caffeine intake? . Status: Yes, What type: Soft Drinks Mar 27, 2016 Do you exercise? . Answer: No Mar 27, 2016 Last Bone Density: . never Mar 27, 2016 Do you drink alcohol? . Status: No Mar 27, 2016 03/27/2016 [facility] Family History Value Date S ource QualifierDescriptionCommentDate Reported Maternal Grandmother alive Comment not available Mar 27, 2016 Paternal Grandmother Comment not available Mar 27, 2016 Siblings alive healthy Mar 27, 2016 Maternal Grandfather alive Comment not available Mar 27, 2016 Children alive Comment not available Mar 27, 2016 Father alive healthy Mar 27, 2016 Paternal Grandfather Comment not available Mar 27, 2016 Mother alive breast cancer Mar 27, 2016 Other: Comment not available Mar 27, 2016 03/28/2016 [facility] QualifierDescriptionCommentDate Reported Maternal Grandmother alive Comment not available Mar 10, 2016 Paternal Grandmother Comment not available Mar 10, 2016 Siblings alive healthy Mar 10, 2016 Maternal Grandfather alive Comment not available Mar 10, 2016 Children alive Comment not available Mar 10, 2016 Father alive healthy Mar 10, 2016 Paternal Grandfather Comment not available Mar 10, 2016 Mother alive breast cancer Mar 10, 2016 Other: Comment not available Mar 10, 2016 03/13/2016 [facility] QualifierDescriptionCommentDate Reported Maternal Grandmother alive Comment not available October 01, 2015 Paternal Grandmother Comment not available October 01, 2015 Siblings alive healthy October 01, 2015 Maternal Grandfather alive Comment not available October 01, 2015 Children alive Comment not available October 01, 2015 Father alive healthy October 01, 2015 Paternal Grandfather Comment not available October 01, 2015 Mother alive breast cancer October 01, 2015 Other: Comment not available October 01, 2015 10/04/2015 [facility] Advance Directives No Data Provided for This Section Functional Status No Data Provided for This Section
--- OUTSIDE RECORDS SUMMARY | 2019-08-03 17:43 | XMS REPORT ---
Author Author Michael Burris Organization [employer] Address Unknown Phone Unavailable Care Team Providers Care Sales Operations Manager Name Role Phone Nabor Burris CP Unavailable Allergies No Known Allergies Problems Problem Type Condition Code Onset Dates Condition Statu s Problem Other chronic pain G89.29 Active Problem Morbid obesity E66.01 Active Problem Mixed hyperlipidemia E78.2 Active Problem Complaint of paresthesia R20.2 Act jannette Problem COVID-19 virus infection U07.1 Act jannette Problem Psychophysiological insomnia F51.04 Active Problem Daytime somnolence R40.0 Active Problem Obstructive sleep apnea syndrome G47.33 Active Problem Anxiety F41.9 Active Problem Snoring R06.83 Active Problem Essential hypertension I10 Activ e Problem Hypogonadism in male E29.1 Active Problem Orthostatic hypotension I95.1 Acti ve Problem Vitamin D deficiency E55.9 Active Problem Mild acid reflux K21.9 Active Medications Medication Code System Code Instructions Start Date End Date Status Dosage Losartan Potassium-HCTZ [facility] [id number] 100-25 MG Orally Once a day Active 1 tablet Results No Known Results Summary Purpose [employer]Works Submission
--- OUTSIDE RECORDS SUMMARY | 2019-08-03 17:43 | XMS REPORT ---
Author Author Michael Murphy Organization [employer] Address Unknown Phone Unavailable Care Team Providers Care Lens Shaper Grinder Name Role Phone Michela Murphy Unavailable Allergies [...] Problem Mild acid reflux K21.9 Active Medications No Known Medications Results No Known Results Summary Purpose [employer] Submission
--- OUTSIDE RECORDS SUMMARY | 2019-08-03 17:43 | XMS REPORT ---
Author Author Michael Murphy [facility] [employer] Address Unknown Phone Unavailable Care Team Providers Care Paraplanner Name Role Phone Michela Murphy Unavailable Allergies No Known Allergies Problems Problem Type Condition Code Onset Dates Condition Statu s Problem Essential hypertension I10 Activ e Problem Hypogonadism in male E29.1 Active Problem Former smoker Z87.891 Active Problem Prostatitis, unspecified prostatitis type N41.9 Active Problem Vitamin D deficiency E55.9 Active Problem Other chronic pain G89.29 Active [...]
--- OUTSIDE RECORDS SUMMARY | 2019-08-03 17:44 | XMS REPORT ---
Author Author Michael Henry [facility] [employer] Address Unknown Phone Unavailable Care Team Providers Care Relay Engineer Name Role Phone Kaylee Henry Unavailable Allergies, Adverse Reactions, Alerts Substance Reaction Event Type penicillin Info Not Available Drug Allergy Encounters Encounter Location Date Unknown [facility] July 20, 2015 FOLLOW UP FROM ER [facility] September 23, 2015 Referral [facility] September 24, 2015 TMT-Dr.G Roe [facility] October 01, 2015 Racing Physical- Came in on Thursday 11/16, but forms have to be filled out by or [facility] Nov 20, 2014 lab results - LMOM [facility] Nov 21, 2014 not feeling good [facility] Jan 28, 2015 CHECK BLOOD SUGAR [facility] Mar 10, 2016 Problems Problem Type Condition ICD-9 Code Onset Dates Condition Statu s Assessment Hypogonadism in male E29.1 Active Assessment Essential hypertension I10 Activ e Assessment Vitamin D deficiency E55.9 Active Assessment Numbness and tingling of both legs R20.2 Active Assessment Low back pain at multiple sites M54.5 Active Problem Orthostatic hypotension I95.1 Acti ve Problem Hypogonadism in male E29.1 Active Problem Numbness and tingling of both legs R20.2 Active Problem Vitamin D deficiency E55.9 Active Problem Prostatitis, unspecified prostatitis type N41.9 Active Problem Essential hypertension I10 Activ e Problem Former smoker Z87.891 Active Medications Medication Code System Code Instructions Start Date End Date Status Dosage Medrol (Juan) Unknown 0 4 MG Orally as directed Mar 10, 2016Mar Active as directed Excedrin Extra Strength [facility] [address]-56 250-250-65 MG Or ally every 6 hrs Active 2 tablets as needed Naproxen [facility] [address]-78 500 MG Orally every 12 hrs prn Ja n 2016Mar 20, 2016 Active 1 tablet as needed Losartan Potassium-HCTZ [facility] 07498254372 100-25 MG Orally Once a day Active 1 tablet Social History Social History Element Qualifiers Date Reported 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 Status , Is thai your prim riki language? Yes Mar 10, 2016 Flu Vaccine: . 01/2016Mar 10, 2016 children . 4 Mar 10, 2016 Depression Screening: . negative Mar 10, 2016 Tobacco Use: . Additional Findings: Toba advertising account manager User Chews tobacco, Are you a: current, How many packs per day? 1 can every 3 days Mar 10, 2016 Use of recreational / street drugs? . Answer: No Mar 10, 2016 Last Colonoscopy: . never Mar 10, 2016 Marital Status: . Nadir Burris Mar 10, 2016 Caffeine intake? . Status: Yes, What type: Soft Drinks J 2016 Do you exercise? . Answer: No Mar 10, 2016 Last Bone Density: . never Mar 10, 2016 Do you drink alcohol? . Status: No Mar 10, 2016 Family history Qualifier Description Comment Date Reported Maternal Grandmother alive Comment not available Mar Paternal Grandmother Comment not available Mar Siblings alive healthy Mar 10, 2016 Maternal Grandfather alive Comment not available Mar Children alive Comment not available Mar 10 Father alive healthy Mar 10, 2016 Paternal Grandfather Comment not available Mar Mother alive breast cancer Mar 10, 2016 Other: Comment not available Mar 10 17 Vital Signs Date/Time: Mar 10, 2016 Weight 260 lbs Height 70 in Cardiac Monitoring Heart Rate 70 /min Blood Pressure Diastolic 74 mm Hg Blood Pressure Systolic 134 mm Hg Results Lumbar AP/LAT Xray Summary Purpose eClinicalWorks Submission
--- OUTSIDE RECORDS SUMMARY | 2019-08-03 17:44 | XMS REPORT ---
Author Michael Wasserman Organization [employer] Address Unknown Phone Unavailable Care Team Providers Care Cemetery Manager Name Role Phone Nabor Burris CP Unavailable Allergies No Known Allergies Problems Problem Type Condition Code Onset Dates Condition Statu s Problem Hypogonadism in male E29.1 Active Problem Other chronic pain G89.29 Active Problem Mild acid reflux K21.9 Active Problem Complaint of paresthesia R20.2 Act jannette Problem Psychophysiological insomnia F51.04 Active Problem History of 2019 novel coronavirus disease (COVID-19) Z 86.19 Active Problem Obstructive sleep apnea syndrome G47.33 Active Problem Mixed hyperlipidemia E78.2 Active Problem Anxiety F41.9 Active Problem Morbid obesity E66.01 Active Assessment Psychophysiological insomnia F51.04 Active Assessment Sore throat J02.9 Active Assessment Anxiety F41.9 Active Problem Essential hypertension I10 Activ e Assessment History of 2019 novel coronavirus disease (COVID-19) Z 86.19 Active Problem Vitamin D deficiency E55.9 Active Medications Medication Code System Code Instructions Start Date End Date Status Dosage Vitamin D (Ergocalciferol) [facility] [id number] 9[address] UNIT Orally once per week LAST REFILL, NEEDS BLOOD WORK Active 1 capsu le Excedrin Extra Strength ND 16434788186 250-250-65 MG Orally farhat ry 6 hrs Active 2 tablets as needed Citalopram Hydrobromide ND 74150580852 10 MG Orally Once a day Active 1 tablet Trazodone HCl ND 58421357096 50 MG Orally Once a day Active 1 tablet at bedtime as needed AndroGel Pump ND 04286100886 20.25 MG/ACT (1.62%) Transd ermal Once a day June 03, 2017 Active 1 application to eac h shoulder in the morning ProAir HFA [facility] 18769275860 108 (90 Base) MCG/ACT Inhala tion every 4 hrs June 15, 2019 Active 1 puff as needed Zithromax Z-Juan ND 10197598059 250 MG Orally Once a day July 062019July 25, 2019 Active 2 tablets on the first day, then 1 tablet daily for 4 days Magui Wheat [facility] 77550746928 100 MG Orally Three times a da y July 20, 2019 July 30, 2019 Active 1 capsule as needed Losartan Potassium-HCTZ [facility] 29944288191 100-25 MG Orally Once a day Active 1 tablet HydrOXYzine HCl [facility] 06476618121 10 MG Orally every -6 8 hrs Apri l 2019 Active 1 tablet as needed Results No Known Results Summary Purpose eClinicalWorks Submission
--- OUTSIDE RECORDS SUMMARY | 2019-08-03 17:44 | XMS REPORT ---
Author Author Michael Henry [employer] Address Unknown Phone Unavailable Care Team Providers Care Bass Singer Name Role Phone Kaylee Henry CP Unavailable Encounters Encounter Location Date Unknown [facility] July 20, 2015 FO[facility] UP FROM ER [facility] September 23, 2015 Referral [facility] September 24, 2015 TMT-Dr[facility]G Roe [facility] October 01, 2015 Racing Physical- Came in on Thursday 11/16, but forms have to be filled out by MD or DO [facility] Nov 20, 2014 lab results - LMOM [facility] Nov 21, 2014 not feeling good [facility] Jan 28, 2015 CHECK BLOOD SUGAR [facility] Mar 10, 2016 Clinical Advice During Business Hours [facility] Mar 23, 2016 Problems Problem Type Condition ICD-9 Code Onset Dates Condition Statu s Problem Orthostatic hypotension I95.1 Acti ve Problem Hypogonadism in male E29.1 Active Problem Numbness and tingling of both legs R20.2 Active Problem Vitamin D deficiency E55.9 Active Problem Prostatitis, unspecified prostatitis type N41.9 Active Problem Essential hypertension I10 Activ e Problem Former smoker Z87.891 Active Medications Medication Code System Code Instructions Start Date End Date Status Dosage AndroGel Pump [facility] [address]-43 20.25 MG/ACT (1. 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 Status , Is monegasque your prim riki language? Yes Mar 10, 2016 Flu Vaccine: . 01/2016Mar 10, 2016 children . 4 Mar 10, 2016 Depression Screening: . negative Mar 10, 2016 Tobacco Use: . 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 1 can every 3 days Mar 10, 2016 Use of recreational / street drugs? . Answer: No Mar 10, 2016 Last Colonoscopy: . never Mar 10, 2016 Marital Status: . Nadir [place] Mar 10, 2016 Caffeine intake? . Status: Yes, What type: Soft Drinks J 2016 Do you exercise? . Answer: No Mar 10, 2016 Last Bone Density: . never Mar 10, 2016 Do you drink alcohol? . Status: No Mar 10, 2016 Summary Purpose eClinicalWorks Submission
--- OUTSIDE RECORDS SUMMARY | 2019-08-03 17:44 | XMS REPORT ---
Author Author [facility] t Organization [facility] Address [address] [place] [address] Dr. Singh. [address] [place] [address] Phone Unavailable Care Team Providers Care Licensed Embalmer Supervisor Name Role Phone Asked, Pcp No PCP Unavailable Justin MARIANO, Angel Storm Attphys Kale MARIANO, Nathan Gonzalez Attphys Josue MARIANO, Artemio Pruitt Attphys [phone] Linda VEHICLE CHECK IN CLERK, Virgilio Garnica Attphys [phone] Tez MARIANO, Javier Granda Attphys [phone] Payers Payer Name Policy Type Policy Number Effective Date Expiration Date Higinio bauer AETNAAETNA PPO OPEN [id number] xxxxxxxxxx 2015 00:00:00 [facility] Problems Condition Name Condition Details Condition Category Status Onset Date Resolution Date Last Treatment Date Treating Clinician Comments Source Essential hypertension Esse ntial hypertension Active Problem 07/28/2019 [facility] Problem Active 2019-07-28 02:04:09 [facility] Hypogonadism in male Hypo gonadism in male Active Problem 07/28/2019 [facility] Problem Active 2019-07-28 02:04:09 [facility] Former smoker Form er smoker Active Problem 05/16/2018 [facility] Problem Active 2 02:00:42 [facility] Prostatitis, unspecified prostatitis type Prostatitis, unspecified prostatitis type Active Diagnosis 06/22/2018 [facility] Diagnosis Active 2018-06-22 02:03:34 [facility] Vitamin D deficiency Ashely min D deficiency Active Problem 07/28/2019 [facility] Problem Active 2019-07-28 02:04:09 [facility] Other chronic pain Othe r chronic pain Active Problem 07/28/2019 [facility] Problem Active 2019-07-28 02:04:09 [facility] Lumbago with sciatica, right side Lumbago with sciatica, right side Active Diagnosis 06/22/2018 [facility] Diagnosis Active 2018-06-22 02:03:34 [facility] Mixed hyperlipidemia Mixe d hyperlipidemia Active Problem 07/28/2019 [facility] Problem Active 2019-07-28 02:04:09 [facility] Orthostatic hypotension Orth ostatic hypotension Active Problem 07/13/2019 [facility] Problem Active 2019-07-13 02:03:07 [facility] Lumbago with sciatica, left side Lumbago with sciatica, left side Active Diagnosis 06/22/2018 [facility] Diagnosis Active 2018-06-22 02:03:34 [facility] Mild acid reflux Mild acid reflux Active Problem 07/28/2019 [facility] Problem Active 02:04:09 [facility] Light headed Ligh t headed Active Diagnosis 04/03/2017 [facility] Diagnosis Active 2017-04-03 03:03:14 [facility] Varicose vein of leg Vari cose vein of leg Active Diagnosis 06/16/2017 [facility] Diagnosis Active 2017-06-16 02:03:43 [facility] Obstructive sleep apnea syndrome Obstructive sleep apnea syndrome Active Problem 07/28/2019 [facility] Problem Active 2019-07-28 02:04:09 [facility] Morbid obesity Morb id obesity Active Problem 07/28/2019 [facility] Problem Active 02:04:09 [facility] Acute non-recurrent maxillary sinusitis Acute non- recurrent maxillary sinusitis Active Diagnosis 11/07/2017 [facility] Diagnosis Active 2017-11-07 02:00:45 [facility] Fatigue Fati roopa Active Diagnosis 11/07/2017 [facility] Diagnosis Active 2017-11-07 02:00:45 [facility] Chest pain Ches t pain Active Diagnosis 11/07/2017 [facility] Diagnosis Active 2017-11-07 02:00:45 [facility] Acute nasopharyngitis Acut e nasopharyngitis Active Problem 10/04/2015 [facility] Problem Active 2015-10-04 02:19:50 [facility] Low back pain at multiple sites Low back pain at multiple sites Active Diagnosis 03/13/2016 [facility] Diagnosis Active 2016-03-13 03:06:02 [facility] Heat exhaustion Heat exhaustion Active Diagnosis 09/27/2015 [facility] Diagnosis Active 2015-09-27 02:13:15 [facility] Hospital discharge follow-up H ospital discharge follow- up Active Diagnosis 09/27/2015 [facility] Diagnosis Active 2015-09-27 02:13:15 [facility] Daytime somnolence Dayt ricardo somnolence Active Problem 07/13/2019 [facility] Problem Active 2019-07-13 02:03:07 [facility] Snoring Snor ing Active Problem 07/13/2019 [facility] Problem Active 2019-07-13 02:03:07 [facility] Screening for prostate cancer Screening for prostate cancer Active Diagnosis 06/22/2018 [facility] Diagnosis Active 2018-06-22 02:03:34 [facility] Screening for colon cancer Scr eening for colon cancer Active Diagnosis 06/22/2018 [facility] Diagnosis Active 2018-06-22 02:03:34 [facility] Routine physical examination R outine physical examination Active Diagnosis 06/22/2018 [facility] Diagnosis Active 2018-06-22 02:03:34 [facility] COVID-19 virus infection COVI D-19 virus infection Active Problem 07/13/2019 [facility] Problem Active 2019-07-13 02:03:07 [facility] Anxiety Anxi ety Active Problem 07/28/2019 [facility] Problem Active 2019-07-28 02:04:09 [facility] Other specified respiratory disorders Other specified respiratory disorders Active Diagnosis 06/20/2019 [facility] Diagnosis Active 2019-06-20 02:02:11 [facility] Complaint of paresthesia Comp laint of paresthesia Active Problem 07/28/2019 [facility] Problem Active 2019-07-28 02:04:09 [facility] Psychophysiological insomnia P sychophysiological insomnia Active Problem 07/28/2019 [facility] Problem Active 2019-07-28 02:04:09 [facility] History of 2019 novel coronavirus disease (COVID-19) History of 2019 novel coronavirus disease (COVID-19) Active Problem 07/28/2019 [facility] Problem Active 2 02:04:09 [facility] Sore throat Sore throat Active Diagnosis 07/28/2019 [facility] Diagnosis Active 2019-07-28 02:04:09 [facility] Allergies, Adverse Reactions, Alerts Allergy Name Allergy Type Status Severity Reaction(s) Onset Date Inacti ve Date Treating Clinician Comments Source penicillin penicillin Active Info Not Available 2019-06-15 00:00:0 0 [facility] Penicillin Propensity to adverse reactions to drug Active Other (See Comments) 2018-08-26 00:00:00 Eric Lees Social History Social Habit Start Date Stop Date Quantity Comments Source History of tobacco use Cigarette Smoker Eric Lees Sex Assigned At Valeri kaliabrittnee Lees Exposure to SARS-CoV-2 (event) Not sure Eric Lees Alcohol intake 2019-07-31 00:00:00 2019-07-31 00:00:00 Ex-drinker (fi nding) Eric Lees Occupation: 2016-03-27 00:00:00 2016-03-27 00:00:00 [facility] Smoking Status Start Date Stop Date Source Former smoker 2019-07-31 00:00:00 2019-07-31 00:00:00 Eric Lees Medications Ordered Medication Name Filled Medication Name Start Date Stop Da te Current Medication? Ordering Clinician Indication Dosage Frequency Signature (SIG) Comments Components Source Vitamin D (Ergocalciferol) 2019-07-28 02:04:09 Yes Nabor Ram 1 capsule [facility] Excedrin Extra Strength 2019-07-28 02:04:09 Yes Nabor Mar tinez [address] [facility] Losartan Potassium-HCTZ 2019-07-28 02:04:09 Yes Nabor Mar tinez [address] [facility] Citalopram Hydrobromide 2019-07-28 02:04:09 Yes Nabor Mar tinez [address] [facility] Trazodone HCl 2019-07-28 02:04:09 Yes Nabor Ram 1 tablet at bedtime as needed [facility] Zithromax Z-Juan 2019-07-20 00:00:00 Yes Nabor Ram 2 tablets on the first day, then 1 tablet daily for 4 days [facility] Tessalon Perles 2019-07-20 00:00:00 Yes Nabor Ram [address] [facility] omeprazole (PriLOSEC) 20 MG capsule 2019-07-18 00:00:0 0 2019-08-01 23:59:00 No 20mg QD Take 1 capsule (20 mg total) by mouth gerard mata for 14 days. Eric Lees aspirin/acetaminophen/caffeine (EXCEDRIN EXTRA STRENGTH ORAL ) 2019-06-20 19:31:26 Yes 2 tablets as needed Eric Lees albuterol (PROAIR HFA) 90 mcg/actuation inhaler 2019-06-20 00:00:00 2019-07-20 23:59:00 No 2{puff} Q4H Inhale 2 puffs every 4 (four) hours as needed for wheezing for up to 30 days. Eric Meth odist benzonatate (TESSALON) 100 MG capsule 2019-06-20 00:00 :00 2019-07-20 23:59:00 No 100mg Q8H Take 1 capsule (100 mg total) by mouth every 8 (eight) hours for 30 days. Eric Lees azithromycin (ZITHROMAX) 250 MG tablet 2019-06-07 4 00:00:00 2019-06-24 23:59:00 No COVID-19 virus infection 250mg QD Take 1 tablet (250 mg total) by mouth daily for 4 days. Take first 2 tablets together, then 1 every day until finished. Eric Lees ProAir HFA 2019-06-15 00:00:00 Yes Nabor Ram [address] [facility] HydrOXYzine HCl 2019-06-15 00:00:00 Yes Nabor Ram [address] [facility] losartan-hydrochlorothiazide (HYZAAR) 100-25 mg per tablet 2019-04-15 00:00:00 Yes Reyes thodist Biaxin 2017-10-29 00:00:00 Yes Henry Servin [address] [facility] Medrol 2017-10-22 00:00:00 Yes Henry Servin as directed & to be started mon. am as discussed w/ pt [facility] AndroGel Pump 2017-06-03 00:00:00 Yes Nabor Ram 1 application to each shoulder in the morning [facility] Vitamin D (Ergocalciferol) 2017-06-03 00:00:00 Yes Jazmine Gilbert [address] [facility] Losartan Potassium-HCTZ 2017-04-26 00:00:00 Yes Michela hansen [address] [facility] Testosterone Cypionate 2016-03-27 00:00:00 Yes Kaylee Peel er [address] [facility] Testosterone Cypionate 2016-03-27 00:00:00 Yes Kaylee Peel er [address] [facility] Vitamin D (Ergocalciferol) 2016-03-27 00:00:00 Yes Tanisha any Carl [address] [facility] AndroGel Pump 2016-03-25 00:00:00 Yes Kaylee Carl 1 application to each upper outer arm [facility] AndroGel Pump 2016-03-25 00:00:00 Yes Kaylee Carl 1 application to each upper outer arm [facility] Excedrin Extra Strength 2016-03-13 03:06:02 Yes Kaylee Carl [address] [facility] Medrol (Juan) 2016-03-10 00:00:00 Yes Kaylee Carl as directed [facility] Naproxen 2016-03-10 00:00:00 Yes Kaylee Carl [address] [facility] Losartan Potassium-HCTZ 2015-09-27 02:13:15 Yes Amir Ghe branious TAKE 1 TABLET BY MOUTH EVERY DAY [facility] Flomax 2015-07-20 00:00:00 Yes Amir Ghebranious 1 capsule 30 minutes after the same meal each day [facility] Vitamin D (Ergocalciferol) 2014-11-21 00:00:00 Yes Hattie chadwick Jose [address] [facility] Vital Signs Vital Name Observation Time Observation Value Comments Source Systolic blood pressure 2019-07-31 11:10:00 142 mm[Hg] Eric Lees Diastolic blood pressure 2019-07-31 11:10:00 84 mm[Hg] Eric Wilsonist Heart rate 2019-07-31 11:10:00 67 /min Eric Wilsonist Respiratory rate 2019-07-31 11:10:00 20 /min [place] Lees Oxygen saturation in Arterial blood by Pulse oximetry 07-30 11:10:00 96 /min Eric Wilsonist Body temperature 2019-07-31 09:25:13 36.39 Laura [place] Hindu Body height 2019-07-31 09:20:00 177.8 cm Reyes Hindu Body weight 2019-07-31 09:20:00 106.142 kg Eric Wilsonist BMI 2019-07-31 09:20:00 33.58 kg/m2 Reyes [facility] Weight 2018-08-26 21:00:00 [facility] Height 2018-08-26 21:00:00 [facility] Heart Rate 2018-08-26 21:00:00 [facility] Diastolic (mm Hg) 2018-08-26 21:00:00 [facility] Systolic (mm Hg) 2018-08-26 21:00:00 [facility] Weight 2018-06-21 20:30:00 [facility] Height 2018-06-21 20:30:00 [facility] Heart Rate 2018-06-21 20:30:00 [facility] Diastolic (mm Hg) 2018-06-21 20:30:00 [facility] Systolic (mm Hg) 2018-06-21 20:30:00 [place] [facility] Weight 2017-10-22 16:00:00 [facility] Height 2017-10-22 16:00:00 [facility] Temperature Oral (F) 2017-10-22 16:00:00 97.7 F [facility] Heart Rate 2017-10-22 16:00:00 [facility] Diastolic (mm Hg) 2017-10-22 16:00:00 [facility] Systolic (mm Hg) 2017-10-22 16:00:00 [place] [facility] Weight 2017-06-03 16:30:00 [facility] Height 2017-06-03 16:30:00 [facility] Heart Rate 2017-06-03 16:30:00 [facility] Diastolic (mm Hg) 2017-06-03 16:30:00 [facility] Systolic (mm Hg) 2017-06-03 16:30:00 [place] [facility] Weight 2017-04-01 21:30:00 [facility] Height 2017-04-01 21:30:00 [facility] Heart Rate 2017-04-01 21:30:00 [facility] Diastolic (mm Hg) 2017-04-01 21:30:00 [facility] Systolic (mm Hg) 2017-04-01 21:30:00 [place] [facility] Weight 2016-03-10 20:45:00 [facility] Height 2016-03-10 20:45:00 [facility] Heart Rate 2016-03-10 20:45:00 [facility] Diastolic (mm Hg) 2016-03-10 20:45:00 [facility] Systolic (mm Hg) 2016-03-10 20:45:00 [facility] Weight 2015-10-01 14:30:00 [facility] Height 2015-10-01 14:30:00 [facility] Heart Rate 2015-10-01 14:30:00 [facility] Diastolic (mm Hg) 2015-10-01 14:30:00 [facility] Systolic (mm Hg) 2015-10-01 14:30:00 [facility] Weight 2015-09-23 20:00:00 [facility] Height 2015-09-23 20:00:00 [facility] Heart Rate 2015-09-23 20:00:00 [facility] Diastolic (mm Hg) 2015-09-23 20:00:00 [facility] Systolic (mm Hg) 2015-09-23 20:00:00 [facility] Weight 2015-01-28 21:15:00 [facility] Height 2015-01-28 21:15:00 [facility] Heart Rate 2015-01-28 21:15:00 [facility] Diastolic (mm Hg) 2015-01-28 21:15:00 [facility] Systolic (mm Hg) 2015-01-28 21:15:00 [place] [facility] Procedures Procedure Date / Time Performed Performing Clinician Sourc e XR CHEST 1 VW PORTABLE 2019-07-31 10:54:24 Emeterio Anderson HC COMPLETE BLD COUNT W/AUTO DIFF 2019-07-31 09:35:00 Shun Anderson BASIC METABOLIC PANEL 2019-07-31 09:35:00 Emeterio Anderson TROPONIN, I-STAT 2019-07-31 09:35:00 Emeterio Anderson Angel Reyes M ethodist B NATRIURETIC PEP, I-STAT 2019-07-31 09:35:00 Shun Andersonael Angel Reyes Hindu ESTIMATED GFR 2019-07-31 09:35:00 Justin Emeterio Ortiz Eric Me thodist ECG 12-LEAD 2019-07-31 09:22:08 JustinEmeterio Eric Me thodist ECG ED PRELIMINARY INTERPRETATION 2019-07-31 09:20:43 Shun Anderson axelhimanshu Lees CT ABDOMEN PELVIS W CONTRAST 2019-07-18 18:18:[address] ANGIOGRAM PE CHEST 2019-07-18 18:16:38 Carlos Fairchild URINALYSIS 2019-07-18 17:06:00 Carlos Fairchild HC COMPLETE BLD COUNT W/AUTO DIFF 2019-07-18 17:00:00 Leonela Fairchild COMPREHENSIVE METABOLIC PANEL 2019-07-18 17:00:00 Carlos Fairchild TROPONIN, I-STAT 2019-07-18 17:00:00 Carlos Fairchild AMYLASE LEVEL 2019-07-18 17:00:00 Carlos Fairchild ESTIMATED GFR 2019-07-18 17:00:00 Carlos Fairchild ECG 12-LEAD 2019-07-18 16:59:49 Carlos Fairchild ECG ED PRELIMINARY INTERPRETATION 2019-07-18 16:54:[address] ANGIOGRAM PE CHEST 2019-06-20 20:50:45 Edmond Bean Hindu COMPREHENSIVE METABOLIC PANEL 2019-06-20 19:48:00 Jayden Bean Hindu HC COMPLETE BLD COUNT W/AUTO DIFF 2019-06-20 19:48:00 Ken Bean Hindu TROPONIN, I-STAT 2019-06-20 19:48:00 Edmond Bean ussabi Hindu ESTIMATED GFR 2019-06-20 19:48:00 Edmond Bean stobrittnee Hindu ECG 12-LEAD 2019-06-20 19:46:04 Edmond Bean Valeri bhardwaj Hindu ECG ED PRELIMINARY INTERPRETATION 2019-06-20 19:41:44 Ken Bean Artemio Eric Hindu XR CHEST 2 VW 2019-06-09 11:39:40 Melly Hartmann on Hindu GROUP A STREP, RAPID ANTIGEN 2019-06-09 11:15:00 Melly Hartmann INFLUENZA ANTIGEN TEST, REFLEX NEGATIVE TO RPP 2019-06-09 11 :15:00 Melly Hartmann STREP SCREEN CULTURE 2019-06-09 11:15:00 Melly Hartmann RESPIRATORY PATHOGEN PANEL 2019-06-09 11:15:00 Melly Hartmann COVID BIOREF (NCOVB) 2019-06-09 11:15:00 Melly Hartmann Plan of Care Planned Activity Planned Date Details Comments Source Future Scheduled Test 2019-10-07 00:00:00 INFLUENZA VACCINE [code = INFLUENZA VACCINE] Eric Lees Encounters Start Date/Time End Date/Time Encounter Type Admission Type [facility] Care Department Encounter ID Source 2019-07-31 00:00:00 2019-07-31 00:00:00 Emergency EMETERIO ANDERSON [facility] [id number] Eric Lees 2019-07-20 13:15:00 2019-07-20 13:15:00 Outpatient [facility] [id number] 2019-07-18 00:00:00 2019-07-18 00:00:00 Emergency CARLOS FAIRCHILD [facility] [id number] Reyes Hindu 2019-07-15 14:36:00 2019-07-15 14:36:00 Emergency E [facility]BL [facility] [id number] [facility] 2019-07-12 07:22:00 2019-07-12 07:22:00 Outpatient [facility] [id number] eClinicalWorks 2019-07-12 07:19:00 2019-07-12 07:19:00 Outpatient [facility] [id number] eClinicalWorks 2019-07-05 09:55:00 2019-07-05 09:55:00 Emergency E MHBL [facility]BL [id number] MHBL 2019-06-20 00:00:00 2019-06-20 00:00:00 Emergency JAYDEN BEAN [facility] [id number] [facility] 2019-06-15 10:45:00 2019-06-15 10:45:00 Outpatient [facility] [id number] eClinicalWorks 2019-06-09 00:00:00 2019-06-09 00:00:00 Emergency MELLY HARTMANN [id number] [facility] 2018-08-26 16:00:00 2018-08-26 16:00:00 Outpatient [facility] [id number] eClinicalWorks 2018-06-21 15:30:00 2018-06-21 15:30:00 Outpatient [facility] [id number] eClinicalWorks 2018-05-15 19:37:00 2018-05-15 19:37:00 Outpatient [facility] [id number] eClinicalWorks 2018-03-03 16:10:00 2018-03-03 16:10:00 [facility]patient [facility] [id number] eClinicalWorks 2017-12-30 19:09:00 2017-12-30 19:09:00 Outpatient [facility] [id number] eClinicalWorks 2017-12-20 13:45:00 2017-12-20 13:45:00 [facility]patient [facility] [id number] eClinicalWorks 2017-10-29 16:55:00 2017-10-29 16:55:00 [facility]patient [facility] [id number] eClinicalWorks 2017-10-28 11:46:00 2017-10-28 11:46:00 [facility]patient [facility] [id number] eClinicalWorks 2017-10-22 11:00:00 2017-10-22 11:00:00 Outpatient [facility] [id number] eClinicalWorks 2017-06-30 12:22:00 2017-06-30 12:22:00 Outpatient [facility] [id number] eClinicalWorks 2017-06-30 09:48:00 2017-06-30 09:48:00 [facility]patient [facility] [id number] eClinicalWorks 2017-06-03 11:30:00 2017-06-03 11:30:00 Outpatient [facility] [id number] eClinicalWorks 2017-04-01 15:30:00 2017-04-01 15:30:00 Outpatient [facility] [id number] eClinicalWorks 2016-03-27 19:31:00 2016-03-27 19:31:[address] [facility] [id number] [facility] 2016-03-27 13:31:00 2016-03-27 13:31:00 [facility] [id number] eClinicalWorks 2016-03-23 21:10:00 2016-03-23 21:10:00 Clinical Advice During Busi ness Hours [facility]ALT [facility] [id number] [facility] 2016-03-23 21:10:00 2016-03-23 21:10:00 Clinical Advice During Busi ness Hours MHIEALT [facility] [id number] [facility] 2016-03-23 15:10:00 2016-03-23 15:10:00 Outpatient [facility] [id number] eClinicalWorks 2016-03-10 20:45:00 2016-03-10 20:45:[address] BLOOD SUGAR MHIEALT [facility] [id number] [facility] 2016-03-10 20:45:00 2016-03-10 20:45:[address] CHECK BLOOD SUGAR MHIEALT [facility] [id number] [facility] 2016-03-10 20:45:00 2016-03-10 20:45:00 CHECK BLOOD SUGAR MHIEALT [facility] [id number] [facility] 2016-03-10 14:45:00 2016-03-10 14:45:00 Outpatient [facility] [id number] [facility] 2015-10-01 15:30:00 2015-10-01 15:30:00 TMT-Dr.G SARAH [facility] [id number] [facility] 2015-10-01 15:30:00 2015-10-01 15:30:00 TMT-Dr.G SARAH [facility] [id number] [facility] 2015-10-01 15:30:00 2015-10-01 15:30:00 TMT-Dr.G SMITH [facility] [id number] [facility] 2015-10-01 14:30:00 2015-10-01 14:30:00 TMT-Dr.G SMITH [facility] [id number] [facility] 2015-10-01 09:30:00 2015-10-01 09:30:00 Outpatient [facility] [place] [address] [facility] 2015-09-24 17:48:00 2015-09-24 17:48:00 Referral SARAH [facility] [id number] [facility] 2015-09-24 17:48:00 2015-09-24 17:48:00 Referral SARAH [facility] [id number] [facility] 2015-09-24 17:48:00 2015-09-24 17:48:00 Referral SARAH [facility] [id number] [facility] 2015-09-24 16:48:00 2015-09-24 16:48:00 Referral SARAH Roe [facility] [id number] [facility] 2015-09-24 16:48:00 2015-09-24 16:48:00 Referral SARAH Roe [facility] [id number] [facility] 2015-09-24 11:48:00 2015-09-24 11:48:00 Outpatient [facility] [id number] eClinicalWorks 2015-09-23 21:00:00 2015-09-23 21:00:00 FOLLOW UP FROM ER SAARH Roe [facility] [id number] [facility] 2015-09-23 21:00:00 2015-09-23 21:00:00 FOLLOW UP FROM ER SARAH Roe [facility] [id number] [facility] 2015-09-23 21:00:00 2015-09-23 21:00:00 FOLLOW UP FROM ER SARAH Roe [facility] [id number] [facility] 2015-09-23 20:00:00 2015-09-23 20:00:00 FOLLOW UP FROM ER SARAH Roe [facility] [id number] [facility] 2015-09-23 20:00:00 2015-09-23 20:00:00 FOLLOW UP FROM ER SARAH [facility] [id number] [facility] 2015-09-23 20:00:00 2015-09-23 20:00:00 FOLLOW UP FROM ER CHLOÉGARLAND [facility] [id number] [facility] 2015-09-23 15:00:00 2015-09-23 15:00:00 Outpatient [facility] [id number] eClinicalWorks 2015-07-21 03:39:00 2015-07-21 03:39:00 Unknown SARAH [facility] [id number] [facility] 2015-07-21 03:39:00 2015-07-21 03:39:00 Unknown SARAH [facility] [id number] [facility] 2015-07-21 03:39:00 2015-07-21 03:39:[address] [facility] [id number] [facility] 2015-07-21 02:39:00 2015-07-21 02:39:[address] [facility] [id number] [facility] 2015-07-21 02:39:00 2015-07-21 02:39:[address] [facility] [id number] [facility] 2015-07-21 02:39:00 2015-07-21 02:39:00 Unknown SARAH [facility] [id number] [facility] 2015-07-21 02:39:00 2015-07-21 02:39:[address] [facility] [id number] [facility] 2015-07-20 21:39:00 2015-07-20 21:39:00 Outpatient [facility] [id number] eClinicalWorks 2015-01-28 21:15:00 2015-01-28 21:15:[address] [facility] [id number] [facility] 2015-01-28 21:15:00 2015-01-28 21:15:[address] [facility] [id number] [facility] 2015-01-28 21:15:00 2015-01-28 21:15:[address] [facility] [id number] [facility] 2015-01-28 21:15:00 2015-01-28 21:15:[address] [facility] [id number] [facility] 2015-01-28 20:15:00 2015-01-28 20:15:[address] [facility] [id number] [facility] 2015-01-28 20:15:00 2015-01-28 20:15:[address] [facility] [id number] [facility] 2015-01-28 20:15:00 2015-01-28 20:15:00 not feeling good MHIEALT [facility] [id number] [facility] 2015-01-28 20:15:00 2015-01-28 20:15:00 not feeling good MHIEALT [facility] [id number] [facility] 2015-01-28 15:15:00 2015-01-28 15:15:00 Outpatient [facility] [id number] eClinicalWorks 2014-11-21 19:57:00 2014-11-21 19:57:00 lab results - LMOM MHIEALT [facility] [id number] [facility] 2014-11-21 19:57:00 2014-11-21 19:57:00 lab results - LMOM MHIEALT [facility] [id number] [facility] 2014-11-21 19:57:00 2014-11-21 19:57:00 lab results - LMOM MHIEALT [facility] [id number] [facility] 2014-11-21 19:57:00 2014-11-21 19:57:00 lab results - LMOM MHIEALT [facility] [id number] [facility] 2014-11-21 18:57:00 2014-11-21 18:57:00 lab results - LMOM MHIEALT [facility] [id number] [facility] 2014-11-21 18:57:00 2014-11-21 18:57:00 [facility] [id number] [facility] 2014-11-21 18:57:00 2014-11-21 18:57:00 [facility] [id number] [facility] 2014-11-21 18:57:00 2014-11-21 18:57:00 lab results - LMOM [facility] [id number] [facility] 2014-11-20 14:00:00 2014-11-20 14:00:00 Racing Physical- Cam e in on Thursday 11/16, but forms have to be filled out by MD or DO MEGHAN CORTES [facility] [id number] [facility] 2014-11-20 14:00:00 2014-11-20 14:00:00 Racing Physical- Cam e in on Thursday 11/16, but forms have to be filled out by MD or DO MEGHAN CORTES [facility] [id number] [facility] 2014-11-20 14:00:00 2014-11-20 14:00:00 Racing Physical- Cam e in on Thursday 11/16, but forms have to be filled out by MD or DO MEGHAN CORTES [facility] [id number] [facility] 2014-11-20 14:00:00 2014-11-20 14:00:00 Racing Physical- Cam e in on Thursday 11/16, but forms have to be filled out by MD or DO MEGHAN CORTES [facility] [id number] [facility] 2014-11-20 13:00:00 2014-11-20 13:00:00 Racing Physical- Cam e in on Thursday 11/16, but forms have to be filled out by MD or DO MEGHAN CORTES [facility] [id number] [facility] 2014-11-20 13:00:00 2014-11-20 13:00:00 Racing Physical- Cam e in on Thursday 11/16, but forms have to be filled out by MD or DO MEGHAN CORTES [facility] [id number] [facility] 2014-11-20 13:00:00 2014-11-20 13:00:00 Racing Physical- Cam e in on Thursday 11/16, but forms have to be filled out by MD or DO MEGHAN CORTES [facility] [id number] [facility] 2014-11-20 13:00:00 2014-11-20 13:00:00 Racing Physical- Cam e in on Thursday 11/16, but forms have to be filled out by MD or DO MEGHAN CORTES [facility] [id number] [facility] Results Test Description Test Time Test Comments Results Result Comments Source ECG 12 lead 2019-07-31 12:35:04 Test Item Ventricular rate (test code = 253) 68 Atrial rate (test code = 255) 68 UT interval (test code = 266) 166 QRSD interval (test code = 260) 82 QT interval (test code = 264) 382 QTC interval (test code = 265) 406 P axis 1 (test code = 267) 53 QRS axis 1 (test code = 268) 59 T wave axis (test code = 270) 32 EKG impression (test code = 273) Normal sinus rhythm w ith sinus arrhythmia- Normal ECG-In automated comparison with ECG of 18-JUL-2019 16:59,-Nonspecific T wave abnormality has replaced inverted T waves in Inferior leads- [facility] MethodistXR Chest 1 Vw [id number] 10:55:32Hm Interface, Radiology Results Incoming - 07/31/2019 10:58 AM CDTEXAMINATION: XR CHEST 1 VW PORTABLECLINICAL HISTORY: 43 years Male palpitationsCOMPARISON: 06/09/2019IMPRESSION:No acute cardiopulmonary disease.FINDINGS:The cardiomediastin al silhouette, lungs, and regional skeletal structures are within normal limits for age. [facility]-[id number] MethodistBasic metabolic [id number] 10:09:01* Test Item Value Reference Range Interpretation Comments Glucose (test code = 2345-7) 98 mg/dL 73-118 BUN (test code = 3094-0) 11 mg/dL 7-22 Calcium (test code = 11597-3) 8.9 mg/dL 8-10.3 Creatinine (test code = 2160-0) 0.7 mg/dL 0.7-1.2 Sodium (test code = 2951-2) 136 128- 145 mEq/L Potassium (test code = 2823-3) 3.2 3.6- 5.1 mEq/L L Chloride (test code = 2075-0) 103 98- 108 mEq/L CO2 (test code = 8-9) 27 18- 33 mEq/L Anion gap (test code = 83512-1) 6@ANIO 7- 15 mEq/L L Lab Interpretation (test code = 47956-6) Abnormal [facility] MethodistCBC with platelet and vqcsmwyvxmsf7174-54-59 10:09:01* Test Item Value Reference Range Interpretation Comments WBC (test code = 61621-0) 6.55 4.50- 11.00 k/uL RBC (test code = 25510-7) 4.54 m/uL 4.4-6 HGB (test code = 718-7) 14.7 g/dL 14-18 HCT (test code = 4544-3) 40.7 % 41-51 L MCV (test code = 787-2) 89.6 fL 82-100 MCH (test code = 785-6) 32.4 pg 27-34 MCHC (test code = 786-4) 36.1 g/dL 31-37 RDW - SD (test code = 93373-6) 42.1 fL 37-55 MPV (test code = 22980-7) 9.4 fL 8.8-13.2 Platelet count (test code = 78245-3) 228 150- 400 k/uL Neutrophils (test code = 88033-3) 55.9 % 39-69 Lymphocytes (test code = 49174-7) 33.6 % 25-45 Monocytes (test code = 17913-8) 8.2 % 0-10 Eosinophils (test code = 52637-9) 1.8 % 0-5 Basophils (test code = 49253-5) 0.5 % 0-1 Lab Interpretation (test code = 89116-1) Abnormal [facility] MethodistB natriuretic pep, [id number] 10:09:01* Test Item Value Reference Range Interpretation Comments BNP, I-Stat (test code = 91406-4) <20 0-100 Reyes MethodistTroponin, [id number]-[id number] 10:09:01* Test Item Value Reference Range Interpretation Comments Troponin, I-Stat (test code = 2359) 0.00 ng/mL 0-0.08 0.09 - 1.49 ng/ml May indicate increased risk of acute coronary syndrome. >=1.5 ng/ml Consistent with acute myocardial infarction. The diagnostic value of a single normal or non-diagnostic result is questionable. Serial samples at 2-6 hour intervalsare required to rule out acute myocardial injury. Eric MethodistEstimated [id number] 10:09:01* Test Item Value Reference Range Interpretation Comments Estimated GFR (test code = 5488) >=90 mL/min/1.73 m2 Catergory Units InterpretationG1 >=90 Normal or highG2 60-89 Mildly lpvwekyztK5j 45-59 Mildly to moderately nfsiawpcnH7l 30-44 Moderately to severely decreasedG4 15-29 Severely decreasedG5 <15 Kidney failureThe eGFR was calculated using the Chronic Kidney Disease Epidemiology Collaboration (CKD-EPI) equation. Interpretation is based on recommendations of the National Kidney Foundation-Kidney Disease Outcomes Quality Initiative (NKF-KDOQI) published in 2014. Eric LeesECSaji ED Preliminary Interpretation - Not an Bubew3866-60-51 09:20:43Emeterio Anderson MD 07/31/2019 11:19 AMECG ED Preliminary Interpretation - Not an OrderPerformed by: Emeterio Anderson MDAuthorized by: Emeterio Anderson MD ECG reviewed by ED Physician in the absence of a commodity merchant: yes Interpretation: Interpretation: normal Rate: ECG rate: 68 ECG rate assessment: normal Rhythm: Rhythm: sinus rhythm Ectopy: Ectopy: none QRS: QRS axis: Normal QRS intervals: NormalConduction: Conduction: normal ST segments: ST segments: NormalT waves: T waves: normal [facility] MethodistCT Abdomen Pelvis W [id number] 18:29:51Hm Interface, Radiology Results 07/18/2019 6:33 PM CDTEXAMINATION: CT ABDOMEN PELVIS W CONTRASTCLINICAL HISTORY: left sided abdominal painTECHNIQUE: Multiple axial images of the abdomen and pelvis were obtained following intra venous administration of iodinated contrast. Sagittal and coronal computerized r eformatted images were also obtained.Automatic exposure control or iterative rec onstruction techniques used to reduce dose.COMPARISON: None.Impression:1.Liver appears fatty infiltrated, with possible lesion in the right lobe measuring 1.2 cm. Adrenals, pancreas, kidneys, and spleen show no focal lesions. There is also a prominent and tortuous vessel at the head of the pancreas, not well character ized. On previous CT chest, this appears to represent collateralized arterial pa thway such as an enlarged gastroduodenal artery related to celiac axis stenosis. This could be further defined with CTA of the abdomen.2.Appendix is unremarkabl e. No evidence for acute diverticulitis. No bowel obstruction seen. Osseous stru ctures are intact.Summary:1.No acute intra-abdominal abnormalities are noted.2.F ollow-up outpatient MRI abdomen evaluation recommended for 1.2 cm right lobe césar er lesion.[facility]-[id number] MethodistCT Angiogram Pe [id number] 18:25:12Hm Interface, Radiology Results 07/18/2019 6:28 PM CDTEXAMINATION:CT ANGIOGRAM PE CHESTCLINICAL HISTORY:PE suspected high pretest probTECHNIQUE: CT angiographic images of the chest were obtained during intravenous administration of iodinated contrast. Computerized reformatted images and 3-D MIP images were also obtained and archived (CT pulmonary embolus protocol).CT imaging was performed with iterative reconstruction techniques and/or automated exposure control to reduce radiation doseCOMPARISON:06/20/2019FINDINGS:Pulmonary arterial enhancement is technically adequate. No pulmonary embolism.Lungs are clear. Previously described very subtle groundglass opacities have resolved. Airways are patent.No pleural or pericardial effusion.The heart is normal in size. No aortic aneurysm or dissection. The liver is fatty.Bones are intact.IMPRESSION:No pulmonary embolism or other acute process.[facility]-[id number] MethodistComprehensive metabolic [id number] 17:21:40* Test Item Value Reference Range Interpretation Comments Sodium (test code = 2951-2) 140 128- 145 mEq/L Potassium (test code = 2823-3) 3.3 3.6- 5.1 mEq/L L CO2 (test code = 2027-9) 28 18- 33 mEq/L Chloride (test code = 2075-0) 105 98- 108 mEq/L Glucose (test code = 2345-7) 91 mg/dL 73-118 Calcium (test code = 04604-9) 9.6 mg/dL 8-10.3 BUN (test code = 3094-0) 8 mg/dL 7-22 Creatinine (test code = 2160-0) 0.9 mg/dL 0.7-1.2 Alkaline phosphatase (test code = 6768-6) 81 U/L 53-128 ALT (test code = 1742-6) 34 U/L 10-47 AST (test code = 1920-8) 32 U/L 11-38 Total bilirubin (test code = 1974-2) 0.9 mg/dL 0.2-1.6 Albumin (test code = 1751-7) 4.5 g/dL 3.3-5.5 Protein (test code = 2885-2) 7.6 g/dL 6.4-8.1 Anion gap (test code = 30463-5) 7@ANIO 7- 15 mEq/L A/G ratio (test code = 1759-0) 1.5 0.7-3.8 Lab Interpretation (test code = 97130-9) Abnormal Lawrence MethodistAmylase [id number] 17:21:40* Test Item Value Reference Range Interpretation Comments Amylase (test code = 1798-8) 50 U/L 14-97 Lawrence ItcvhtwwfAxwjeapndr0275-93-84 17:21:40* Test Item Value Reference Range Interpretation Comments Glucose, UA (test code = 21679-5) Negative Negative Bilirubin, UA (test code = 5770-3) Negative Negative Ketones, UA (test code = 2514-8) Negative Negative Specific gravity, UA (test code = 5811-5) 1.010 1.001-1.035 Blood, UA (test code = 5794-3) Trace Negative A pH, UA (test code = 5803-2) 6.0 5.0-8.5 Protein, UA (test code = 16776-3) Negative Negative Urobilinogen, UA (test code = 35503-2) <2.0 <2.0 Nitrite, UA (test code = 5802-4) Negative Negative Leukocyte esterase, UA (test code = 5799-2) Negative Negative Color, UA (test code = 5778-6) Yellow Appearance, UA (test code = 5767-9) Clear Lab Interpretation (test code = 47503-3) Abnormal Lawrence MethodistCOVID BioRef (NCOVB)2019-06-12 16:39:14* Test Item Value Reference Range Interpretation Comments COVID BioRef (NCOVB) (test code = 62251-6) Presumptive Posit jannette for 2019-nCoV Not Detected A Testing performed at [facility] [address] [place] [address] NOTE: The viral concentration is likely to be near or below the limit of detection. Re-collection of a new sample is suggested, if clinically indicated. NOTE: The COVID-19 assay has been cleared by the U.S. Food and DrugAdministration under the Emergency Use Authorization (EUA). [facility] is designated as a high complexity laboratory by the ClinicalLaboratory Improvement Amendments of 1988(CLIA) and is qualified to performthis test. ASSAY INFORMATION: Real Time RT-PCR Lab Interpretation (test code = 61009-0) Abnormal Lawrence MethodistStrep screen [id number] 19:04:10* Test Item Value Reference Range Interpretation Comments Strep screen culture isolate (test code = 2246) No bet a hemolytic Streptococci isolated Specimen Information Specimen Source: ThroatSpecimen Site: [facility] otherwise specified [facility] strep, rapid [id number] 17:25:18* Test Item Value Reference Range Interpretation Comments Group A strep, rapid antigen result (test code = 99024 79) Negative for Group A Streptococcus antigen. Specimen Informat ionSpecimen Source: ThroatSpecimen Site: Not otherwise specified [facility] HospitalistRespiratory pathogen [id number] 16:14:34Respiratory pathogen panelNegative for all pathogens tested:Negative for AdenovirusNegative for Coronavirus UTD7Quunoeyg for Coronavirus YN69Kmwurhzw for Coronavirus 229ENegative for Coronavirus KQ64Dodhaqyw for Human MetapneumovirusNegative for Rhinovirus/EnterovirusNegative for Influenza ANegative for Influenza A/H1N egative for Influenza A/N3Oxkzbtll for Influenza A/H1-2009Negative for Influenza BNegative for Parainfluenza Virus 1Negative for Parainfluenza Virus 2Negative f or Parainfluenza Virus 3Negative for Parainfluenza Virus 4Negative for Respirato ry Syncytial VirusNegative for Bordetella pertussisNegative for Chlamydophila pn eumoniaeNegative for Mycoplasma pneumoniaeThis real-time PCR assay detects the p resence of nucleic acids (RNA or DNA) for the respiratory pathogens listed. A r esult of "Not-detected" does not exclude the possibility of the presence of one or more pathogens at concentrations less than the detectable limits of the assay . Comment: Specimen InformationSpecimen Source: NaresSpecimen Site: Right [facility] MethodistXR Chest 2 [id number] 12:47:32Hm Interface, Radiology Results - 06/09/2019 12:50 PM CDTEXAMINATION: XR CHEST 2 VWCLINICAL HISTORY: cough sore throatCOMPARISON: None.IMPRESSION:H eart and mediastinum: Cardiomediastinal silhouette is normal in contour.Lungs an d pleura: Lungs are clear. There is no focal airspace disease, pleural effusion or pneumothorax. Bones: No acute osseous abnormality.[facility]-[id number] and approved by resident care manager rn/fellow: Ibis Salazar, Jorje Vasquez MD, personally reviewed the images and resident's/fellow's findings and agree with the final report.Eric Silvafluenza antigen test, reflex negative to [id number] 11:47:13* Test Item Value Reference Range Interpretation Comments Influenza antigen (test code = 49046-7) Negative for Influenza A/B antigen. Specimen InformationSpecimen Source: NaresSpecimen Site: Right Eric Lees
--- OUTSIDE RECORDS SUMMARY | 2019-08-03 17:44 | XMS REPORT ---
Author Author Michael Murphy [facility] eClinicalWorks Address Unknown Phone Unavailable Care Team Providers Care Alarm Signaler Name Role Phone Michela Murphy Unavailable Encounters Encounter Location Date Unknown [facility] July 20, 2015 Racing Physical- Came in on Thursday 11/16, but forms have to be filled out by MD or DO [facility] Nov 20, 2014 lab results - LMOM [facility] Nov 21, 2014 not feeling good [facility] Jan 28, 2015 Problems Problem Type Condition ICD-9 Code Onset Dates Condition Statu s Problem Essential hypertension I10 Activ e Problem Former smoker Z87.891 Active Problem Acute nasopharyngitis J00 Active Problem Vitamin D deficiency E55.9 Active Problem Prostatitis, unspecified prostatitis type N41.9 Active Medications Medication Code System Code Instructions Start Date End Date Status Dosage Flomax MEDISPAN [address]-48 0.4 MG Orally Once a day July 20, 2015 August 19, 2015 Active 1 capsule 30 minutes after t he same meal each day Social History Social History Element Qualifiers Date Reported Ethnicity . Status , Is turkish your prim riki language? Yes Jan 28, 2015 children . 4 Jan 28, 2015 Tobacco Use: . Are you a: former smoker Jan 28, 2015 Use of recreational / street drugs? . Answer: No Jan 28, 2015 Marital Status: . Nadir Burris Jan 28, 2015 Caffeine intake? . Status: Yes, What type: Soft Drinks N 2014 Do you exercise? . Answer: No Jan 28, 2015 Do you drink alcohol? . 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
--- OUTSIDE RECORDS SUMMARY | 2019-08-03 17:44 | XMS REPORT ---
Author Author Michael Murphy Organization eClinicalWorks Address Unknown Phone Unavailable Care Team Providers Care Charge Master Analyst Name Role Phone Michela Murphy Unavailable Allergies No Known Allergies Problems Problem Type Condition Code Onset Dates Condition Statu s Problem Hypogonadism in male E29.1 Active Problem Numbness and tingling of both legs R20.2 Active Problem Orthostatic hypotension I95.1 Acti ve Problem Obstructive sleep apnea syndrome G47.33 Active Problem Mixed hyperlipidemia E78.2 Active Problem Morbid obesity E66.01 Active Problem Lumbago with sciatica, left side M54.42 Active Problem Mild acid reflux K21.9 Active Problem Other chronic pain G89.29 Active Problem Lumbago with sciatica, right side M54.41 Active Problem Prostatitis, unspecified prostatitis type N41.9 Active Problem Essential hypertension I10 Activ e Problem Former smoker Z87.891 Active Problem Vitamin D deficiency E55.9 Active Medications Medication Code System Code Instructions Start Date End Date Status Dosage Losartan Potassium-HCTZ [facility] 46192044941 100-25 MG Orally Once a day Apr 26, 2017 Active 1 tablet Results No Known Results Summary Purpose eClinicalWorks Submission
--- OUTSIDE RECORDS SUMMARY | 2019-08-03 17:44 | XMS REPORT ---
Author Author Michael Murphy [facility] eClinicalWorks Address Unknown Phone Unavailable Care Team Providers Care Policy Manager Name Role Phone Michela Murphy Unavailable Allergies, Adverse Reactions, Alerts Substance Reaction Event Type penicillin Info Not Available Drug Allergy Encounters Encounter Location Date Unknown [facility] July 20, 2015 FOLLOW UP FROM ER [facility] September 23, 2015 Racing Physical- Came in on Thursday 11/16, but forms have to be filled out by MD or DO [facility] Nov 20, 2014 lab results - LMOM [facility] Nov 21, 2014 not feeling good [facility] Jan 28, 2015 Problems Problem Type Condition ICD-9 Code Onset Dates Condition Statu s Assessment Fatigue R53.83 Active Assessment Chest pain R07.9 Active Assessment Heat exhaustion T67.5XXA Active Problem Acute nasopharyngitis J00 Active Problem Essential hypertension I10 Activ e Problem Hypogonadism in male E29.1 Active Problem Prostatitis, unspecified prostatitis type N41.9 Active Assessment Hospital discharge follow-up Z09 Active Problem Former smoker Z87.891 Active Problem Vitamin D deficiency E55.9 Active Assessment Essential hypertension I10 Activ e Assessment Vitamin D deficiency E55.9 Active Assessment Hypogonadism in male E29.1 Active Medications Medication Code System Code Instructions Start Date End Date Status Dosage Losartan Potassium-HCTZ MEDISPAN [address]-32 100-25 MG Active TAKE 1 TABLET BY MOUTH EVERY DAY Excedrin Extra Strength MEDISPAN [address]-79 250-250-65 MG Or ally every 6 hrs Active 2 tablets as needed Social History Social History Element Qualifiers Date Reported Ethnicity . Status , Is maori your prim riki language? Yes September 23, 2015 children . 4 September 23, 2015 Tobacco Use: . Are you a: former smoker September 22 6 Use of recreational / street drugs? . Answer: No September 23, 2015 Marital Status: . Nadir Burris September 23, 2015 Caffeine intake? . Status: Yes, What type: Soft Drinks Erendira [email or web address] Do you exercise? . Answer: No September 23, 2015 Do you drink alcohol? . 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
--- OUTSIDE RECORDS SUMMARY | 2019-08-03 17:44 | XMS REPORT ---
Author Author Michael Henry [facility] eClinicalWorks Address Unknown Phone Unavailable Care Team Providers Care Oil Heaterman Name Role Phone Kaylee Henry Unavailable Encounters Encounter Location Date Unknown [facility] July 20, 2015 FOLLOW UP FROM ER [facility] September 23, 2015 Referral [facility] September 24, 2015 TMT-Dr.G Roe [facility] October 01, 2015 Racing Physical- Came in on Thursday 11/16, but forms have to be filled out by MD or DO [facility] Nov 20, 2014 lab results - LMOM [facility] Nov 21, 2014 not feeling good [facility] Jan 28, 2015 Unknown [facility] Mar 27, 2016 CHECK BLOOD SUGAR [facility] Mar 10, 2016 Clinical Advice During Business Hours [facility] Mar 23, 2016 [...] Instructions Start Date End Date Status Dosage Testosterone Cypionate MEDISPAN [address]-63 200 MG/ML Intramuscular every 2 weeks Mar 27, 2016 Active 1 ml Vitamin D (Ergocalciferol) MEDISPAN [address]-98 14738 UNIT Orally once per week Mar 27, 2016 September 11, 2016 Active 1 capsule Social History Social History Element Qualifiers Date Reported 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 Status , Is kyrgyz your prim riki language? Yes Mar 27, 2016 Flu Vaccine: . 01/2016Mar 27, 2016 children . 4 Mar 27, 2016 Depression Screening: . negative Mar 27, 2016 Tobacco Use: . Additional Findings: Toba accounting/finance tutor User Chews tobacco, Are you a: current, How many packs per day? 1 can every 3 days Mar 27, 2016 Use of recreational / street drugs? . Answer: No Mar 27, 2016 Last Colonoscopy: . never Mar 27, 2016 Marital Status: . Nadir Burris Mar 27, 2016 Caffeine intake? . Status: Yes, What type: Soft Drinks J 2016 Do you exercise? . Answer: No Mar 27, 2016 Last Bone Density: . never Mar 27, 2016 Do you drink alcohol? . Status: No Mar 27, 2016 Family history Qualifier Description Comment Date Reported Maternal Grandmother alive Comment not available Mar 092016 Paternal Grandmother Comment not available Mar 092016 Siblings alive healthy Mar 27, 2016 Maternal Grandfather alive Comment not available Mar 092016 Children alive Comment not available Mar 27 Father alive healthy Mar 27, 2016 Paternal Grandfather Comment not available Mar 092016 Mother alive breast cancer Mar 27, 2016 Other: Comment not available Mar 27 Summary Purpose eClinicalWorks Submission
--- OUTSIDE RECORDS SUMMARY | 2019-08-03 17:44 | XMS REPORT ---
Author Author Michael Garcia Organization eClinicalWorks Address Unknown Phone Unavailable Care Team Providers Care Import/Export Clerk Name Role Phone Belkys Garcia CP Unavailable Allergies, Adverse Reactions, Alerts Substance Reaction Event Type penicillin Info Not Available Drug Allergy Problems Problem Type Condition Code Onset Dates Condition Statu s Problem Vitamin D deficiency E55.9 Active Problem Essential hypertension I10 Activ e Problem Obstructive sleep apnea syndrome G47.33 Active Assessment Mixed hyperlipidemia E78.2 Active Problem Mixed hyperlipidemia E78.2 Active Assessment Obstructive sleep apnea syndrome G47.33 Active Problem Morbid obesity E66.01 Active Problem Orthostatic hypotension I95.1 Acti ve Problem Hypogonadism in male E29.1 Active Problem Other chronic pain G89.29 Active Problem Mild acid reflux K21.9 Active Assessment Orthostatic hypotension I95.1 Acti ve Assessment Hypogonadism in male E29.1 Active Assessment Lumbago with sciatica, right side M54.41 Active Assessment Lumbago with sciatica, left side M54.42 Active Assessment Essential hypertension I10 Activ e Assessment Screening for prostate cancer Z12.5 Active Assessment Prostatitis, unspecified prostatitis type N41.9 Active Assessment Screening for colon cancer Z12.11 A ctive Assessment Vitamin D deficiency E55.9 Active Assessment Routine physical examination Z00.00 Active Medications Medication Code System Code Instructions Start Date End Date Status Dosage Excedrin Extra Strength ND 51966957407 250-250-65 MG Orally farhat ry 6 hrs Active 2 tablets as needed Vitamin D (Ergocalciferol) ND 19222506713 36597 UNIT Orally once per week LAST REFILL, NEEDS BLOOD WORK Active 1 capsu le AndroGel Pump ND 96583652515 20.25 MG/ACT (1.62%) Transd ermal Once a day June 03, 2017 Active 1 application to eac h shoulder in the morning Losartan Potassium-HCTZ ND 75916425554 100-25 MG Orally Once a day Active 1 tablet Vital Signs Date/Time: June 21, 2018 BMI 37.30 Index Weight 260 lbs Height 70 in Cardiac Monitoring Heart Rate 75 /min Blood Pressure Diastolic 92 mm Hg Blood Pressure Systolic 128 mm Hg Results Name Result Date Reference Range Unit Abnormali ty Flag EKG Summary Purpose eClinicalWorks Submission
--- OUTSIDE RECORDS SUMMARY | 2019-08-03 17:44 | XMS REPORT ---
Author Author Michael Garcia Organization eClinicalWorks Address Unknown Phone Unavailable Care Team Providers Care Sheet Metal Duct Worker Supervisor Name Role Phone Belkys aGrcia CP Unavailable Allergies, Adverse Reactions, Alerts Substance Reaction Event Type penicillin Info Not Available Drug Allergy Encounters Encounter Location Date Racing Physical- Came in on Thursday 11/16, but forms have to be filled out by MD or DO [facility] Nov 20, 2014 lab results - LMOM [facility] Nov 21, 2014 not feeling good [facility] Jan 28, 2015 Problems Problem Type Condition ICD-9 Code Onset Dates Condition Statu s Problem Essential hypertension I10 Activ e Problem Former smoker Z87.891 Active Problem Acute nasopharyngitis J00 Active Problem Vitamin D deficiency E55.9 Active Assessment Acute nasopharyngitis J00 Active Medications Medication Code System Code Instructions Start Date End Date Status Dosage Excedrin Extra Strength [facility] [address]-62 250-250-65 MG Or ally every 6 hrs Active 2 tablets as needed Vitamin D (Ergocalciferol) [facility] [address]-74 75222 UNIT Or ally weekly Nov 21, 2014 May 20, 2015 Active 1 capsule [facility] [address]-80 100-25 MG Orally Once a day Active 1 tablet Social History Social History Element Qualifiers Date Reported Ethnicity . Status , Is montenegrin your prim riki language? 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
--- OUTSIDE RECORDS SUMMARY | 2019-08-03 17:44 | XMS REPORT ---
Author Author Michael Garcia Organization eClinicalWorks Address Unknown Phone Unavailable Care Team Providers Care Optical Assistant Name Role Phone Belkys Garcia CP Unavailable Allergies, Adverse Reactions, Alerts Substance Reaction Event Type penicillin Info Not Available Drug Allergy Problems Problem Type Condition Code Onset Dates Condition Statu s Problem Vitamin D deficiency E55.9 Active Problem Orthostatic hypotension I95.1 Acti ve Problem Hypogonadism in male E29.1 Active Problem Daytime somnolence R40.0 Active Problem Obstructive sleep apnea syndrome G47.33 Active Problem Snoring R06.83 Active Problem Mixed hyperlipidemia E78.2 Active Problem Mild acid reflux K21.9 Active Problem Morbid obesity E66.01 Active Problem Other chronic pain G89.29 Active Assessment Morbid obesity E66.01 Active Assessment Essential hypertension I10 Activ e Assessment Snoring R06.83 Active Assessment Daytime somnolence R40.0 Active Problem Essential hypertension I10 Activ e Medications Medication Code System Code Instructions Start Date End Date Status Dosage Vitamin D (Ergocalciferol) [facility] 04339806122 55078 UNIT Orally once per week LAST REFILL, NEEDS BLOOD WORK Active 1 capsu le Losartan Potassium-HCTZ [facility] 89619691887 100-25 MG Orally Once a day Active 1 tablet AndroGel Pump [facility] 90722316890 20.25 MG/ACT (1.62%) Transd ermal Once a day June 03, 2017 Active 1 application to eac h shoulder in the morning Excedrin Extra Strength [facility] 12745965946 250-250-65 MG Orally farhat ry 6 hrs Active 2 tablets as needed Vital Signs Date/Time: August 26, 2018 BMI 37.73 Index Weight 263 lbs Height 70 in Cardiac Monitoring Heart Rate 72 /min Blood Pressure Diastolic 84 mm Hg Blood Pressure Systolic 132 mm Hg Results No Known Results Summary Purpose eClinicalWorks Submission
--- OUTSIDE RECORDS SUMMARY | 2019-08-03 17:44 | XMS REPORT ---
Author Author Michael Murphy Organization eClinicalWorks Address Unknown Phone Unavailable Care Team Providers Care Redrawer Name Role Phone Michela Murphy Unavailable Allergies [...] Problem Vitamin D deficiency E55.9 Active Medications No Known Medications Results No Known Results Summary Purpose eClinicalWorks Submission
--- OUTSIDE RECORDS SUMMARY | 2019-08-03 17:44 | XMS REPORT ---
Author Author Michael Servin [facility] eClinicalWorks Address Unknown Phone Unavailable Care Team Providers Care Supervisor [employer] Name Role Phone Henry Servin Unavailable Allergies, Adverse Reactions, Alerts Substance Reaction [...] with sciatica, right side M54.41 Active Assessment Fatigue R53.83 Active Assessment Chest pain R07.9 Active Assessment Morbid obesity E66.01 Active Problem Prostatitis, unspecified prostatitis type N41.9 Active Problem Essential hypertension I10 Activ e Assessment Obstructive sleep apnea syndrome G47.33 Active Problem Former smoker Z87.891 Active Assessment Acute non-recurrent maxillary sinusitis J01.00 Active Problem Vitamin D deficiency E55.9 Active Medications Medication Code System Code Instructions Start Date End Date Status Dosage Excedrin Extra Strength [facility] 81772737372 250-250-65 MG Orally farhat ry 6 hrs Active 2 tablets as needed Medrol ND 27626458501 4 mg Orally as directed over 6 days Oct 22, 2017 Oct 28, 2017 Active as directed & to be started mon. am as discussed w/ pt Vitamin D (Ergocalciferol) [facility] 95365460279 97957 UNIT Ora lly once per week June 03, 2017 Nov 30, 2017 Active 1 capsule Losartan Potassium-HCTZ ND 75206548774 100-25 MG Orally Once a day Apr 26, 2017 Active 1 tablet AndroGel Pump ND 59333511174 20.25 MG/ACT (1.62%) Transd ermal Once a day June 03, 2017 Active 1 application to eac h shoulder in the morning Vital Signs Date/Time: Oct 22, 2017 BMI 37.30 Index Weight 260 lbs Height 70 in Temperature 97.7 F Cardiac Monitoring Heart Rate 75 /min Blood Pressure Diastolic 86 mm Hg Blood Pressure Systolic 134 mm Hg Results No Known Results Summary Purpose eClinicalWorks Submission
--- OUTSIDE RECORDS SUMMARY | 2019-08-03 17:44 | XMS REPORT ---
Author Author Michael Mcarthur Organization eClinicalWorks Address Unknown Phone Unavailable Care Team Providers Care Operator Helper Name Role Phone Jazmine Mcarthur CP Unavailable Allergies No Known Allergies Problems [...] Activ e Problem Former smoker Z87.891 Active Assessment Vitamin D deficiency E55.9 Active Problem Vitamin D deficiency E55.9 Active Medications Medication Code System Code Instructions Start Date End Date Status Dosage Vitamin D (Ergocalciferol) [facility] 88602246837 58022 UNIT Orally once per week LAST REFILL, NEEDS BLOOD WORK June 03, 2017 Jan 19, 2018 Active 1 capsu le Results No Known Results Summary Purpose eClinicalWorks Submission
--- OUTSIDE RECORDS SUMMARY | 2019-08-03 17:44 | XMS REPORT ---
Author Author Michael Burris Organization eClinicalWorks Address Unknown Phone Unavailable Care Team Providers Care Studio Sales Associate Name Role Phone Nabor Burris CP Unavailable Allergies, Adverse Reactions, Alerts Substance Reaction Event Type penicillin Info Not Available Drug Allergy Problems Problem Type Condition Code Onset Dates Condition Statu s Problem Orthostatic hypotension I95.1 Acti ve Problem Mixed hyperlipidemia E78.2 Active Problem Mild acid reflux K21.9 Active Problem COVID-19 virus infection U07.1 Act jannette Problem Daytime somnolence R40.0 Active Problem Anxiety F41.9 Active Problem Obstructive sleep apnea syndrome G47.33 Active Problem Other chronic pain G89.29 Active Problem Snoring R06.83 Active Problem Morbid obesity E66.01 Active Assessment Anxiety F41.9 Active Problem Vitamin D deficiency E55.9 Active Assessment Other specified respiratory disorders J98.8 Active Problem Essential hypertension I10 Activ e Assessment COVID-19 virus infection U07.1 Act jannette Problem Hypogonadism in male E29.1 Active Medications Medication Code System Code Instructions Start Date End Date Status Dosage Losartan Potassium-HCTZ [facility] 00399196196 100-25 MG Orally Once a day Active 1 tablet ProAir HFA ND 62417150174 108 (90 Base) MCG/ACT Inhala tion every 4 hrs June 15, 2019 Active 1 puff as needed Vitamin D (Ergocalciferol) [facility] 60613906426 21068 UNIT Orally once per week LAST REFILL, NEEDS BLOOD WORK Active 1 capsu le Excedrin Extra Strength ND 63965342904 250-250-65 MG Orally farhat ry 6 hrs Active 2 tablets as needed HydrOXYzine HCl ND 90655108682 10 MG Orally every -6 8 hrs Apri l 2019 Active 1 tablet as needed AndroGel Pump ND 98006400384 20.25 MG/ACT (1.62%) Transd ermal Once a day June 03, 2017 Active 1 application to eac h shoulder in the morning Results No Known Results Summary Purpose eClinicalWorks Submission
--- OUTSIDE RECORDS SUMMARY | 2019-08-03 17:44 | XMS REPORT ---
Author Author Michael Murphy [facility] eClinicalWorks Address Unknown Phone Unavailable Care Team Providers Care Dispatch Associate Name Role Phone Michela Murphy Unavailable Allergies, Adverse Reactions, Alerts Substance Reaction Event Type penicillin Info Not Available Drug Allergy Encounters Encounter Location Date Unknown [facility] July 20, 2015 FOLLOW UP FROM ER [facility] September 23, 2015 Referral [facility] September 24, 2015 TMT-Dr.G Roe [facility] October 01, 2015 Racing Physical- Came in on Thursday 11/16, but forms have to be filled out by or DO [facility] Nov 20, 2014 lab results - LMOM [facility] Nov 21, 2014 not feeling good [facility] Jan 28, 2015 Problems Problem Type Condition ICD-9 Code Onset Dates Condition Statu s Assessment Chest pain R07.9 Active Assessment Orthostatic hypotension I95.1 Acti ve Problem Hypogonadism in male E29.1 Active Problem Acute nasopharyngitis J00 Active Problem Orthostatic hypotension I95.1 Acti ve Problem Vitamin D deficiency E55.9 Active Problem Prostatitis, unspecified prostatitis type N41.9 Active Problem Essential hypertension I10 Activ e Problem Former smoker Z87.891 Active Medications Medication Code System Code Instructions Start Date End Date Status Dosage Excedrin Extra Strength MEDISPAN [address]-10 250-250-65 MG Or ally every 6 hrs Active 2 tablets as needed Losartan Potassium-HCTZ MEDISPAN 12136386959 100-25 MG Orally Once a day Active 1 tablet Social History Social History Element Qualifiers Date Reported Ethnicity . Status , Is kinyarwanda your prim riki language? Yes October 01, 2015 children . 4 October 01, 2015 Tobacco Use: . Are you a: former smoker September 30 6 Use of recreational / street drugs? . Answer: No October 01, 2015 Marital Status: . Nadir Burris October 01, 2015 Caffeine intake? . Status: Yes, What type: Soft Drinks J [email or web address] Do you exercise? . Answer: No October 01, 2015 Do you drink alcohol? . 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 Family history Qualifier Description Comment Date Reported Maternal Grandmother alive Comment not available October 01, 2015 Paternal Grandmother Comment not available October 01, 2015 Siblings alive healthy October 01, 2015 Maternal Grandfather alive Comment not available October 01, 2015 Children alive Comment not available September 30 Father alive healthy October 01, 2015 Paternal Grandfather Comment not available October 01, 2015 Mother alive breast cancer October 01, 2015 Other: Comment not available September 30 Vital Signs Date/Time: October 01, 2015 Weight 256 lbs Height 70 in Cardiac Monitoring Heart Rate 84 /min Blood Pressure Diastolic 86 mm Hg Blood Pressure Systolic 144 mm Hg Immunizations Vaccine Administration Date FLU 3YRS & UP 93202 October 01, 2015 PNEUMOCOCCAL VACCINE October 01, 2015 Summary Purpose eClinicalWorks Submission
--- OUTSIDE RECORDS SUMMARY | 2019-08-03 17:44 | XMS REPORT ---
Author Author Michael Murphy [facility] eClinicalWorks Address Unknown Phone Unavailable Care Team Providers Care Crop Quantitative Geneticist Name Role Phone Michela Murphy Unavailable Encounters Encounter Location Date Unknown [facility] July 20, 2015 FOLLOW UP FROM ER [facility] September 23, 2015 Referral [facility] September 24, 2015 Racing Physical- Came in on Thursday 11/16, but forms have to be filled out by MD or DO [facility] Nov 20, 2014 lab results - LMOM [facility] Nov 21, 2014 not feeling good [facility] Jan 28, 2015 Problems Problem Type Condition ICD-9 Code Onset Dates Condition Statu s Problem Acute nasopharyngitis J00 Active Problem Essential hypertension I10 Activ e Problem Hypogonadism in male E29.1 Active Problem Prostatitis, unspecified prostatitis type N41.9 Active Problem Former smoker Z87.891 Active Problem Vitamin D deficiency E55.9 Active Social History Social History Element Qualifiers Date Reported Ethnicity . Status , Is costa rican your prim riki language? Yes September 23, 2015 children . 4 September 23, 2015 Tobacco Use: . Are you a: former smoker September 22 6 Use of recreational / street drugs? . Answer: No September 23, 2015 Marital Status: . Nadir [place] September 23, 2015 Caffeine intake? . Status: Yes, What type: Soft Drinks J 2015 Do you exercise? . Answer: No September 23, 2015 Do you drink alcohol? . 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
[2019-08-03] MEDS ORDERED: SODIUM CHLORIDE 0.9% 1000ML 1,000 ML IV STA (18:16)
[2019-08-03] MEDS ORDERED: PANTOPRAZOLE 40 MG 10ML VIAL IV ONE (18:16)
[2019-08-03] MEDS ORDERED: ASPIRIN 81 MG CHEW TAB PO ONE (18:16)
[2019-08-03 18:34] LABS: BASOPHILS % 0.4 % (0.0-1.0); EOSINOPHILS # (AUTO) 0.2 (0.0-0.4); EOSINOPHILS % 1.7 % (0.0-6.0); HEMATOCRIT 41.4 % (38.2-49.6); HEMOGLOBIN 14.8 g/dL (14.0-18.0); LYMPHOCYTES # (AUTO) 3.3 (1.0-3.2); LYMPHOCYTES % 33.6 % (18.0-39.1); MEAN CORPUSCULAR HEMOGLOBIN 31.9 pg (28-32); MEAN CORPUSCULAR HGB CONC 35.7 g/dL (31-35); MEAN CORPUSCULAR VOLUME 89.2 fL (81-99); MONOCYTES # (AUTO) 0.7 (0.2-0.8); MONOCYTES % 7.3 % (4.4-11.3); NEUTROPHILS # (AUTO) 5.5 (2.1-6.9); NEUTROPHILS % 56.7 % (38.7-80.0); PLATELET COUNT 243 x10e3/uL (140-360); RED BLOOD COUNT 4.64 x10e6/uL (4.3-5.7); RED CELL DISTRIBUTION WIDTH 13.2 % (11.7-14.4)
--- NOTE | 2019-08-03 18:39 | Emergency Department Note ---
History of Present Illnes History of Present Illness Chief Complaint: Chest Pain History of Present Illness This is a 43 year old male c/o palpitations and pressure type cp radiat ing to back x 3 days states it mostly happens at night states he went to pcp office today for same issue and referred here for further eval states he has been stressed out lately about covid crisis and personal health denies sob. Historian: Patient Arrival Mode: Car Physical Director Required: No Onset (how long ago): day(s) (3) Location: CHEST Quality: PRESSURE Radiation: back Severity: moderate Onset quality: gradual Duration (how long): day(s) (3) Timing of current episode: intermittent (LASTS 15 MINS, WORSE TODAY) Progression: worsening Chronicity: new Context: recent illness Relieving factors: none Exacerbating factors: none Associated symptoms: chest pain, diaphoresis, shortness of breath, other (PALPITATIONS) Treatments prior to arrival: none Past Medical/Family History Physician Review I have reviewed the patient's past medical and family history. Any updates have been documented here. Past Medical History Recent Fever: No Clinical Suspicion of Infectio: No New/Unexplained Change in Ment: No Past Medical History: Hypertension, Anxiety Past Surgical History: None Social History Smoking Cessation: Never Smoker Counseling Performed: No Alcohol Use: None Any Illegal Drug Use: No TB Exposure/Symptoms: No Physically hurt or threatened: No Other Last Tetanus: ood Any Pre-Existing Lines (PICC,: No Is patient up to date on immun: Yes Last Flu: ood Last Pneumovax: ood Review of Systems Review of Systems Constitutional: no symptoms EENTM: no symptoms Cardiovascular: chest pain, palpitations Respiratory: dyspnea Gastrointestinal: no symptoms Genitourinary: no symptoms Musculoskeletal: no symptoms Neurological: no symptoms Psychological: no symptoms Endocrine: no symptoms Hematological/Lymphatic: no symptoms Review of other systems All other systems reviewed and negative. Physical Exam Related Data Allergies: Coded Allergies: Penicillins (Verified Allergy, Mild, 10/20/09) Triage Vital Signs Vital Signs Date Time Temp Pulse Resp B/P (MAP) Pulse Ox O2 Delivery O2 Flow Rate FiO2 08/03/19 17:57 98.4 85 18 160/101 98 Physical Exam CONSTITUTIONAL Constitutional: well-developed, well-nourished HENT HENT: normocephalic, atraumatic, oropharynx clear/moist, nose normal HENT L/R: left ext ear normal, right ext ear normal EYES Eyes: PERRL, conjunctivae normal NECK Neck: ROM normal PULMONARY Pulmonary: effort normal, breath sounds normal CARDIOVASCULAR Cardiovascular: regular rhythm, heart sounds normal, capillary refill normal, normal rate GASTROINTESTINAL Abdominal: soft, nontender, bowel sounds normal GENITOURINARY Genitourinary: exam deferred SKIN Skin: warm, dry MUSCULOSKELETAL Musculoskeletal: ROM normal NEUROLOGICAL Neurological: alert, oriented x 3, no gross motor or sensory deficits PSYCHOLOGICAL Psychological: mood/affect normal, judgement normal Results Laboratory Lab results reviewed: No Imaging Imaging results reviewed: No Procedures 12 Lead ECG Interpretation Physical Director: Interpreted by ED physician Date: August 03, 2019 Time: 17:44 Prior CAR PARKER tracings: reviewed Rhythm: sinus rhythm Rate: normal (76) QRS axis: normal ST segments normal: Yes T waves normal: Yes Clinical Impression: normal ECG Critical Care Time Subsequent provider I assumed direction of critical care for this patient from another provider of my specialty. Assessment & Plan Reassessment Reassessment CHEST PAIN WITH ASSOC SOB, DIAPHORESIS, RADIATION TO BACK AND PALPITATIONS - CHECK CBC, CHEM'S, ECG, CARDIAC ENZYMES, D-DIMER, CXR, TSH - R/O STEMI/NSTEMI, PULM EMBOLUS, ELECTROLYTE ABNL, HYPERTHYROID, PNEUMONIA. ADMIT OBS TELE. I SPOKE WITH DR HODGES Assessment & Plan Final Impression: (1) Chest pain (2) Palpitations Assessment & Plan ADMIT OBS TELETransition of care:After a detailed discussion of the patient's case, the patient's care is transferred to Dr. OLIVA - LABS, CXR PENDING Depart Disposition: ADMITTED Last Vital Signs Date Time Temp Pulse Resp B/P (MAP) Pulse Ox O2 Delivery O2 Flow Rate FiO2 08/03/19 17:57 98.4 85 18 160/101 98 Home Meds Reported Medications Losartan Potassium (LOSARTAN POTASSIUM) 100 Mg Tablet, 100 MG PO DAILY, TAB 06/23/15 Medications in the ED Pantoprazole Sodium 40 mg ONCE ONCE IV ; Start 08/03/19 at 18:16; Stop 08/03/19 at 18:23; Status DC Sodium Chloride 1,000 ml @ 0 mls/hr Q0M STAT IV ; Start 08/03/19 at 18:16; Stop 5/28/20 at 18:20; Status DC Aspirin 81 mg ONCE ONCE PO ; Start 08/03/19 at 18:16; Stop 08/03/19 at 18:23; Status DC DEN MERRILL MD August 03, 2019 18:39
[2019-08-03] MEDS: FAMOTIDINE 20 MG/2 ML VIAL IV SCH (18:45)
[2019-08-03] MEDS ORDERED: MORPHINE SULFATE 2 MG/ML SYR 1ML IV PRN (18:45)
[2019-08-03] MEDS ORDERED: ONDANSETRON HCL INJ 2MG/ML 2ML 2 MG/ML VIAL IV PRN (18:45)
[2019-08-03] MEDS: METOPROLOL TARTRATE 25 MG TAB PO SCH (18:45)
[2019-08-03 18:52] LABS: ALANINE AMINOTRANSFERASE 31 IU/L (0-55); ALBUMIN 4.1 g/dL (3.5-5.0); ALBUMIN/GLOBULIN RATIO 1.2 (0.8-2.0); ALKALINE PHOSPHATASE 89 IU/L (40-150); ANION GAP 14.1 mmol/L (8-16); BLOOD UREA NITROGEN 11 mg/dL (7-26); BUN/CREATININE RATIO 13 (6-25); CALCIUM 9.2 mg/dL (8.4-10.2); CARBON DIOXIDE 24 mmol/L (22-29); CHLORIDE 103 mmol/L (98-107); CREATINE KINASE 187 IU/L (30-200); CREATININE, SERUM 0.86 mg/dL (0.72-1.25); EST GLOMERULAR FILTRATION RATE > 60 ML/MIN (60-); GLUCOSE 86 mg/dL (74-118); MAGNESIUM 1.9 MG/DL (1.3-2.1); POTASSIUM 3.1 mmol/L (3.5-5.1); SODIUM 138 mmol/L (136-145)
--- OUTSIDE RECORDS SUMMARY | 2019-08-03 18:53 | XMS REPORT | Clinical Summary ---
Author Author Eric [facility] Organization [place] [facility] Address Unknown Phone Unavailable Care Team Providers Care Sexual Assault Counsellor Name Role Phone Asked, No Pcp PCP [...] structures are within normal limits for age. [facility]-[id number] Procedure Note Interface, Radiology Results Incoming - 07/31/2019 10:58 AM CDT EXAMINATION: XR CHEST 1 VW PORTABLE CLINICAL HISTORY: 43 years Male palpitations COMPARISON: 06/09/2019 IMPRESSION: No acute cardiopulmonary disease. FINDINGS: The cardiomediastinal silhouette, lungs, and regional skeletal structures are within normal limits for age. [facility]-[id number] Performing Organization Address City/State/Zipcode Ph one Number [facility] [address] [facility] [place] [address] * Estimated GFR (07/31/2019 9:35 AM CDT) Only the most recent of 3 results within the time period is included. Estimated GFR >=90 mL/min/1.73 m2 [facility] Comment: CATHOLIC Catergory Units STANBERRY Interpretation EMERGENCY CARE G1 >=90 CENTER Normal [...] published in 2014. Specimen Performing Organization Address City/[facility] [place] [address] PATHOLOGY AND GENOMIC MEDICINE[address] * Troponin, I-Stat (07/31/2019 9:35 AM CDT) Only the most recent of 3 results within the time period is included. Troponin, 0.00 0.00 - 0.08 ng/mL [facility] I-Stat Comment: CATHOLIC 0.09 - 1.49 ng/ml ST[facility] May indicate increased risk EMERGENCY CARE of acute CENTER coronary syndrome. >=1.5 ng/ml Consistent with acute myocardial infarction. The diagnostic value of a single normal or non-diagnostic result is questionable. Serial samples at 2-6 hour intervals are required to rule out acute myocardial injury. Specimen Blood Performing Organization Address [facility] [place] [address] PATHOLOGY AND GENOMIC MEDICINE[address] * B natriuretic pep, I-Stat (07/31/2019 9:35 AM CDT) BNP, I-Stat <20 0 - 100 pg/mL [facility] Specimen Blood Performing Organization Address City/[facility] Ph [place] [address] PATHOLOGY AND GENOMIC MEDICINE[address] * CBC with platelet and differential (07/31/2019 9:35 AM CDT) Only the most recent of 3 results within the time period is included. WBC 6.55 4.50 - 11.00 k/uL [facility] RBC 4.54 4.40 - 6.00 m/uL [facility] HGB 14.7 14.0 - 18.0 g/dL [facility] HCT 40.7 (L) 41.0 - 51.0 % [facility] MCV 89.6 82.0 - 100.0 fL [facility] MCH 32.4 27.0 - 34.0 pg [facility] MCHC 36.1 31.0 - 37.0 g/dL [facility] RDW - SD 42.1 37.0 - 55.0 fL [facility] MPV 9.4 8.8 - 13.2 fL [facility] Platelet count 228 150 - 400 k/uL [facility] Neutrophils 55.9 39.0 - 69.0 % [facility] Lymphocytes 33.6 25.0 - 45.0 % [facility] Monocytes 8.2 0.0 - 10.0 % [facility] Eosinophils 1.8 0.0 - 5.0 % [facility] Basophils 0.5 0.0 - 1.0 % [facility] Specimen Blood Performing Organization Address City/State/[facility] Ph one Number DEPARTMENT OF [address] [place] [address] PATHOLOGY AND GENOMIC MEDICINE, [address] * Basic metabolic panel (07/31/2019 9:35 AM CDT) Glucose 98 73 - 118 mg/dL [facility] BUN 11 7 - 22 mg/dL [facility] Calcium 8.9 8.0 - 10.3 mg/dL [facility] Creatinine 0.7 0.7 - 1.2 mg/dL [facility] Sodium 136 128 - 145 mEq/L [facility] Potassium 3.2 (L) 3.6 - 5.1 mEq/L [facility] Chloride 103 98 - 108 mEq/L [facility] CENTER CO2 27 18 - 33 mEq/L [facility] Anion gap 6@ANIO (L) 7 - 15 mEq/L [facility] Specimen Blood Performing Organization Address City/[facility] Ph one Number DEPARTMENT OF [address] [place] [address] PATHOLOGY AND GENOMIC MEDICINE, [address] * ECG 12 lead (07/31/2019 9:22 [...] is n ot available. 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 [id number] Procedure Note Interface, Radiology Results Incoming - [...] for 1.2 cm right lobe liver lesion. [id number] Performing Organization Address City/State/Zipcode Ph one Number [facility] [address] [place] [address] * CT Angiogram Pe Chest (07/18/2019 6:16 PM CDT) Only the most recent of 2 results within the time period is included. Specimen Narrative Performed At [facility] CHEST CLINICAL HISTORY: [...] pulmonary embolism or other acute pr ocess. [facility]-[id number] Procedure Note Interface, Radiology Results Incoming - [...] No pulmonary embolism or other acute process. [facility]-[id number] Performing Organization Address City/[facility] one Number [address] [address] * Urinalysis (07/18/2019 5:06 PM CDT) Glucose, UA Negative Negative [facility] Bilirubin, UA Negative Negative [facility] Ketones, UA Negative Negative [facility] Specific 1.010 1.001 - 1.035 [facility] gravity, UA [facility] Blood, UA Trace (A) Negative [facility] pH, UA 6.0 5.0 - 8.5 [facility] Protein, UA Negative Negative [facility] Urobilinogen, <2.0 <2.0 [facility] Nitrite, UA Negative Negative [facility] Leukocyte Negative Negative [facility] esterase, UA [facility] Color, UA Yellow [facility] Appearance, UA Clear [facility] Specimen Urine Performing Organization Address City/[facility] [place] [address] PATHOLOGY AND GENOMIC MEDICINE, [address] * Amylase level (07/18/2019 5:00 PM CDT) Amylase 50 14 - 97 U/L [facility] Specimen Blood Performing Organization Address City/[facility] Ph [place] [address] PATHOLOGY AND GENOMIC MEDICINE, [address] * Comprehensive metabolic panel (07/18/2019 5:00 PM CDT) Only the most recent of 2 results within the time period is included. Sodium 140 128 - 145 mEq/L [facility] Potassium 3.3 (L) 3.6 - 5.1 mEq/L [facility] CO2 28 18 - 33 mEq/L [facility] Chloride 105 98 - 108 mEq/L [facility] Glucose 91 73 - 118 mg/dL [facility] Calcium 9.6 8.0 - 10.3 mg/dL [facility] BUN 8 7 - 22 mg/dL [facility] Creatinine 0.9 0.7 - 1.2 mg/dL [facility] Alkaline 81 53 - 128 U/L [facility] phosphatase [facility] ALT 34 10 - 47 U/L [facility] AST 32 11 - 38 U/L [facility] Total bilirubin 0.9 0.2 - 1.6 mg/dL [facility] Albumin 4.5 3.3 - 5.5 g/dL [facility] Protein 7.6 6.4 - 8.1 g/dL [facility] Anion gap 7@ANIO 7 - 15 mEq/L [facility] A/G ratio 1.5 0.7 - 3.8 [facility] Specimen Blood Performing Organization Address City/State/[facility] Ph one Number DEPARTMENT OF [address] [place] [address] PATHOLOGY AND GENOMIC MEDICINE, [address] * XR Chest 2 Vw (06/09/2019 11:39 AM CDT) Specimen Narrative Performed At EXAMINATION: XR CHEST 2 VW [facility] CLINICAL HISTORY: cough sore throat COMPARISON: None. IMPRESSION: Heart and mediastinum: Cardiomediastina l silhouette is normal in contour. Lungs and pleura: Lungs are clear. Ther e is no focal airspace disease, pleural effusion or pneumothorax. Bones: No acute osseous abnormality. [facility]-[id number] Dictated and approved by radiology resi dent/fellow: [...] or pneumothorax. Bones: No acute osseous abnormality. [facility]-[id number] Dictated and approved by executive assistant to president/fellow: Everardo Cespedes M.D. I, Jorje Vasquez MD, personally reviewed the images and resident's/fellow's findings and agree with the final report. Performing Organization Address City/State/[place] [address] * Respiratory pathogen panel (06/09/2019 11:15 AM CDT) [facility] Respiratory Negative for all pathogens [facility] pathogen panel tested: CATHOLIC Negative for Adenovirus [facility] Negative for Coronavirus HKU1 Negative [...] Specimen Nares - Right Performing Organization Address [facility] Ph one Number [facility] DEPARTMENT OF [address] [place] [address] PATHOLOGY AND GENOMIC MEDICINE [facility] C[facility]OLIC [address] [place] [address] * Influenza antigen test, reflex negative to RPP (06/09/2019 11:15 AM CDT) [facility] Influenza Negative for Influenza A/B [facility] antigen antigen. [facility] Comment: HOSPITAL Specimen Information Specimen Source: Nares Specimen Site: Right Specimen Nares - Right Performing Organization Address City/State/Zipcode Ph one Number [facility] DEPARTMENT OF [address] [place] [address] PATHOLOGY AND GENOMIC MEDICINE [facility] CATHOLIC [address] [place] [address] * COVID BioRef (NCOVB) (06/09/2019 11:15 AM CDT) [facility] COVID BioRef Presumptive Positive for Not Detected BIORE FERENCE (NCOVB) 2019-nCoV (A) LAB Comment: Testing performed at [facility] [address] [address] NOTE: The viral concentration is likely to be near or below the limit of detection. Re-collection of a new sample is suggested, if clinically indicated. NOTE: The COVID-19 assay has been cleared by the U.S. Food and Drug Administration under the Emergency Use Authorization (EUA). [facility] is designated as a high complexity laboratory by the Clinical Laboratory Improvement Amendments of 1988(CLIA) and is qualified to perform this test. ASSAY INFORMATION: Real Time RT-PCR Specimen Serum Performing Organization Address [facility] Ph one Number [facility] DEPARTMENT OF [address] [place] [address] PATHOLOGY AND GENOMIC MEDICINE [facility] [address] [place] [address] * Group A strep, rapid antigen (06/09/2019 11:15 AM CDT) Group A strep, Negative for Group A [facility] rapid antigen Streptococcus antigen. CATHOLIC result Comment: [facility]Y Specimen [facility] EMERGENCY CARE Specimen Source: Throat CENTER Specimen Site: Not otherwise specified Specimen Throat - Not otherwise specified Performing Organization Address [facility] Ph [place] [address] PATHOLOGY AND GENOMIC MEDICINE, [facility] CATH[facility] * Strep screen culture (06/09/2019 11:15 AM CDT) Strep screen No beta hemolytic Streptococci [facility] N culture isolate isolated [facility] Comment: HOSPITAL Specimen Information Specimen Source: Throat Specimen Site: Not otherwise specified Specimen Throat - Not otherwise specified Performing Organization Address [facility] Ph one Number [facility] DEPARTMENT OF [address] [place] [address] PATHOLOGY AND [employer] MEDICINE [place] [address] HOSPITAL after 08/02/2018 Additional Health Concerns Resolved Time Infection Noted Time Coronavirus COVID-19 (D+C) 06/13/2019 11:00 AM CDT Insurance Type Payer Benefit Subscriber ID Effective Phone Address Plan / Dates Group PPO AETNA AETNA PPO xxxxxxxxxx [id number] OPEN resent CHOICE Advance Directives For more information, please contact: [phone] 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
--- OUTSIDE RECORDS SUMMARY | 2019-08-03 18:54 | XMS REPORT ---
Author Author [facility] t Organization [facility] Address [address] [place] [address] [address]. [address]. [address] [place] [address] Phone Unavailable Care Team Providers Care Section 8 Property Manager Name Role Phone Asked, Pcp No PCP Unavailable Justin MARIANO, Angel Storm Attphys Kale MARIANO, Nathan Gonzalez Attphys Josue MARIANO, Artemio Pruitt Attphys [phone] TOP STOP ATTACHER, Virgilio Garnica Attphys Tez MARIANO, Javier Granda Attphys [phone] Payers Payer Name Policy Type Policy Number Effective Date Expiration Date Higinio bauer AETNAAETNA PPO OPEN [id number] xxxxxxxxxx 2015 00:00:00 [place] [facility] Problems Condition Name Condition Details Condition Category [...] smoker Form er smoker Active Problem 05/16/2018 [facility] Problem [...] [facility] Snoring [...] Active Info Not Available 2019-06-15 00:00:0 0 [facility] Penicillin Propensity to adverse reactions to drug [...] Eric Lees Occupation: 2016-03-27 00:00:00 2016-03-27 00:00:00 [facility] Smoking Status Start Date Stop Date Source Former smoker 2019-07-31 00:00:00 2019-07-31 00:00:00 Eric Lees Medications Ordered Medication Name Filled Medication Name Start Date Stop Da te Current Medication? Ordering Clinician Indication Dosage Frequency Signature (SIG) Comments Components Source Vitamin D (Ergocalciferol) 2019-07-28 02:04:09 Yes Nabor Ram 1 capsule [facility] Excedrin Extra Strength 2019-07-28 02:04:09 Yes Nabor Mar tinez 2 tablets as needed [facility] Losartan Potassium-HCTZ 2019-07-28 02:04:09 Yes Nabor Mar tinez 1 tablet [facility] Citalopram Hydrobromide 2019-07-28 02:04:09 Yes Nabor Mar tinez 1 tablet [facility] Trazodone HCl 2019-07-28 02:04:09 Yes Nabor Ram 1 tablet at bedtime as needed [facility] Zithromax Z-Juan 2019-07-20 00:00:00 Yes Nabor Ram 2 tablets on the first day, then 1 tablet daily for 4 days [facility] Tessalon Perles 2019-07-20 00:00:00 Yes Nabor Ram 1 capsule as needed [facility] omeprazole (PriLOSEC) 20 MG capsule 2019-07-18 00:00:0 0 2019-08-01 23:59:00 No 20mg QD Take 1 capsule (20 mg total) by mouth gerard amta for 14 days. Eric Lees aspirin/acetaminophen/caffeine (EXCEDRIN [...] Yes Nabor Ram 1 puff as needed [facility] HydrOXYzine HCl 2019-06-15 00:00:00 Yes Nabor Ram 1 tablet as needed [facility] losartan-hydrochlorothiazide (HYZAAR) 100-25 mg per tablet 2019-04-15 00:00:00 Yes Reyes thodist Biaxin 2017-10-29 00:00:00 Yes Henry Servin 1 tablet [facility] Medrol 2017-10-22 00:00:00 Yes Henry Servin as directed & to be started mon. am as discussed w/ pt [facility] AndroGel Pump 2017-06-03 00:00:00 Yes Nabor Ram 1 application to each shoulder in the morning [facility] Vitamin D (Ergocalciferol) 2017-06-03 00:00:00 Yes Jazmine Gilbert 1 capsule [facility] Losartan Potassium-HCTZ 2017-04-26 00:00:00 Yes Michela hansen 1 tablet [facility] Testosterone Cypionate 2016-03-27 00:00:00 Yes Kaylee Peel er 1 ml [facility] Testosterone Cypionate 2016-03-27 00:00:00 Yes Kaylee Peel er 1 ml [facility] Vitamin D (Ergocalciferol) 2016-03-27 00:00:00 Yes Tanisha any Carl 1 capsule [facility] AndroGel Pump 2016-03-25 00:00:00 Yes Kaylee Carl 1 application to each upper outer arm [facility] AndroGel Pump 2016-03-25 00:00:00 Yes Kaylee Carl 1 application to each upper outer arm [facility] Excedrin Extra Strength 2016-03-13 03:06:02 Yes Kaylee Carl 2 tablets as needed [facility] Medrol (Juan) 2016-03-10 00:00:00 Yes Kaylee Carl as directed [facility] Naproxen 2016-03-10 00:00:00 Yes Kaylee Carl 1 tablet as needed [facility] Losartan Potassium-HCTZ 2015-09-27 02:13:15 Yes Amir Ghe branious TAKE 1 TABLET BY MOUTH EVERY DAY [facility] Flomax 2015-07-20 00:00:00 Yes Amir Ghebranious 1 capsule 30 minutes after the same meal each day [facility] Vitamin D (Ergocalciferol) 2014-11-21 00:00:00 Yes Hattie chadwick Jose 1 capsule [facility] Vital Signs [...] temperature 2019-07-31 09:25:13 36.39 [place] [facility] Body height 2019-07-31 09:20:00 177.8 cm [facility] Body weight 2019-07-31 09:20:00 106.142 kg Eric Wilsonist BMI 2019-07-31 09:20:00 33.58 kg/m2 [facility] Weight 2018-08-26 21:00:00 [facility] Height 2018-08-26 21:00:00 [facility] Heart Rate 2018-08-26 [...] [facility] Systolic (mm Hg) 2018-06-21 20:30:00 [facility] Weight [...] [facility] Systolic (mm Hg) 2017-10-22 16:00:00 [facility] Weight 2017-06-03 16:30:00 [facility] Height 2017-06-03 16:30:00 [facility] Heart Rate 2017-06-03 16:30:00 [facility] Diastolic (mm Hg) 2017-06-03 16:30:00 [facility] Systolic (mm Hg) 2017-06-03 16:30:00 [facility] Weight 2017-04-01 21:30:00 [facility] Height 2017-04-01 21:30:00 [facility] Heart Rate 2017-04-01 21:30:00 [facility] Diastolic (mm Hg) 2017-04-01 21:30:00 [facility] Systolic (mm Hg) 2017-04-01 21:30:00 [facility] Weight [...] Med Ass[facility] Systolic (mm Hg) 2015-01-28 21:15:00 [facility] Procedures Procedure Date / Time Performed Performing Clinician Sourc e XR CHEST 1 VW PORTABLE 2019-07-31 10:54:24 Emeterio Anderson HC COMPLETE BLD COUNT W/AUTO DIFF 2019-07-31 09:35:00 Shun Anderson BASIC METABOLIC PANEL 2019-07-31 09:35:00 Emeterio Anderson TROPONIN, I-STAT 2019-07-31 09:35:00 Emeterio Anderson Angel Reyes M ethodist B NATRIURETIC PEP, I-STAT 2019-07-31 09:35:00 Shun Andersonael Angel Reyes Mormon ESTIMATED GFR 2019-07-31 09:35:00 Justin Emeterio Ortiz [...] ANGIOGRAM PE CHEST 2019-06-20 20:50:45 Edmond Bean Mormon COMPREHENSIVE METABOLIC PANEL 2019-06-20 19:48:00 Jayden Bean Mormon HC COMPLETE BLD COUNT W/AUTO DIFF 2019-06-20 19:48:00 Ken Bean Mormon TROPONIN, I-STAT 2019-06-20 19:48:00 Edmond Bean ussabi Mormon ESTIMATED GFR 2019-06-20 19:48:00 Edmond Bean stobrittnee Mormon ECG 12-LEAD 2019-06-20 19:46:04 Edmond Bean Valeri bhardwaj Mormon ECG ED PRELIMINARY INTERPRETATION 2019-06-20 19:41:44 Ken Bean Artemio Eric Mormon XR CHEST 2 VW 2019-06-09 11:39:40 Melly Hartmann on Mormon GROUP A STREP, RAPID ANTIGEN 2019-06-09 11:15:00 [...] End Date/Time Encounter Type Admission Type Attendi [facility] Care Department Encounter ID Source 2019-07-31 00:00:00 2019-07-31 00:00:00 Emergency EMETERIO ANDERSON [facility] [id number] Eric Lees 2019-07-20 13:15:00 2019-07-20 13:15:00 Outpatient [facility] [id number] eClinicalSocialOptimizr 2019-07-18 00:00:00 2019-07-18 00:00:00 Emergency CARLOS FAIRCHILD [facility] [id number] Reyes [facility] 2019-07-15 14:36:00 2019-07-15 14:36:00 Emergency E MHBL MHBL [id number] MHBL 2019-07-12 07:22:00 2019-07-12 07:22:00 Outpatient [facility] [id number] eClinicalWorks 2019-07-12 07:19:00 2019-07-12 07:19:00 Outpatient [facility] [id number] eClinicalWorks 2019-07-05 09:55:00 2019-07-05 09:55:00 Emergency E MHBL MHBL [id number] MHBL 2019-06-20 00:00:00 2019-06-20 00:00:00 Emergency JAYDEN BEAN [facility] [id number] [facility] 2019-06-15 10:45:00 2019-06-15 10:45:00 Outpatient [facility] [id number] eClinicalWorks 2019-06-09 00:00:00 2019-06-09 00:00:00 Emergency MELLY HARTMANN [id number] [facility] 2018-08-26 16:00:00 2018-08-26 16:00:00 Outpatient [facility] [id number] eClinicalWorks 2018-06-21 15:30:00 2018-06-21 15:30:00 Outpatient [facility] [id number] eClinicalWorks 2018-05-15 19:37:00 2018-05-15 19:37:00 Outpatient [facility] [id number] eClinicalWorks 2018-03-03 16:10:00 2018-03-03 16:10:00 Outpatient [facility] [id number] eClinicalWorks 2017-12-30 19:09:00 2017-12-30 19:09:00 Outpatient [facility] [id number] eClinicalWorks 2017-12-20 13:45:00 2017-12-20 13:45:00 Outpatient [facility] [id number] eClinicalWorks 2017-10-29 16:55:00 2017-10-29 16:55:00 Outpatient [facility] [id number] eClinicalWorks 2017-10-28 11:46:00 2017-10-28 11:46:00 Outpatient [facility] [id number] eClinicalWorks 2017-10-22 11:00:00 2017-10-22 11:00:00 Outpatient [facility] [id number] eClinicalWorks 2017-06-30 12:22:00 2017-06-30 12:22:00 Outpatient [facility] [id number] eClinicalWorks 2017-06-30 09:48:00 2017-06-30 09:48:00 Outpatient [facility] [id number] eClinicalWorks 2017-06-03 11:30:00 2017-06-03 11:30:00 Outpatient [facility] [id number] eClinicalWorks 2017-04-01 15:30:00 2017-04-01 15:30:00 Outpatient [facility] [id number] eClinicalWorks 2016-03-27 19:31:00 2016-03-27 19:31:00 Unknown MHIEALT [facility] [id number] [facility] 2016-03-27 13:31:00 2016-03-27 13:31:00 Outpatient [facility] [id number] eClinicalWorks 2016-03-23 21:10:00 2016-03-23 21:10:00 Clinical Advice During Busi ness Hours MHIEALT [facility] [id number] [facility] 2016-03-23 21:10:00 2016-03-23 21:10:00 Clinical Advice During Busi ness Hours MHIEALT [facility] [id number] [facility] 2016-03-23 15:10:00 2016-03-23 15:10:00 Outpatient [facility] [id number] eClinicalWorks 2016-03-10 20:45:00 2016-03-10 20:45:00 CHECK BLOOD SUGAR MHIEALT [facility] [id number] [facility] 2016-03-10 20:45:00 2016-03-10 20:45:00 CHECK BLOOD SUGAR MHIEALT [facility] [id number] [facility] 2016-03-10 20:45:00 2016-03-10 20:45:00 CHECK BLOOD SUGAR MHIEALT [facility] [id number] [facility] 2016-03-10 14:45:00 2016-03-10 14:45:00 Outpatient [facility] [id number] [facility] 2015-10-01 15:30:00 2015-10-01 15:30:00 TMT-Dr.G SARAH [facility] [id number] [facility] 2015-10-01 15:30:00 2015-10-01 15:30:00 TMT-Dr.G SARAH [facility] [id number] [facility] 2015-10-01 15:30:00 2015-10-01 15:30:00 TMT-Dr.G SMITH [facility] [id number] [facility] 2015-10-01 14:30:00 2015-10-01 14:30:00 TMT-Dr.G SMITH [facility] [id number] [facility] 2015-10-01 09:30:00 2015-10-01 09:30:00 Outpatient [id number] 2015-09-24 17:48:00 2015-09-24 17:48:00 Referral SARAH [facility] [id number] [facility] 2015-09-24 17:48:00 2015-09-24 17:48:00 Referral SARAH [facility] [id number] [facility] 2015-09-24 17:48:00 2015-09-24 17:48:00 Referral ASRAH [facility] [id number] [facility] 2015-09-24 16:48:00 2015-09-24 16:48:00 Referral SARAH [facility] [id number] [facility] 2015-09-24 16:48:00 2015-09-24 16:48:00 Referral SARAH [facility] [id number] [facility] 2015-09-24 11:48:00 2015-09-24 11:48:00 Outpatient [facility] [id number] eClinicalWorks 2015-09-23 21:00:00 2015-09-23 21:00:00 FOLLOW UP FROM ER SARAH [facility] [id number] [facility] 2015-09-23 21:00:00 2015-09-23 21:00:00 FOLLOW UP FROM ER SARAH [facility] [id number] [facility] 2015-09-23 21:00:00 2015-09-23 21:00:00 FOLLOW UP FROM ER SARAH [facility] [id number] [facility] 2015-09-23 20:00:00 2015-09-23 20:00:00 FOLLOW UP FROM ER SARAH [facility] [id number] [facility] 2015-09-23 20:00:00 2015-09-23 20:00:00 FOLLOW UP FROM ER SARAH [facility] [id number] [facility] 2015-09-23 20:00:00 2015-09-23 20:00:00 FOLLOW UP FROM ER CHLOÉGARLAND [facility] [id number] [facility] 2015-09-23 15:00:00 2015-09-23 15:00:00 Outpatient [facility] [id number] eClinicalWorks 2015-07-21 03:39:00 2015-07-21 03:39:00 Unknown SARAH [facility] [id number] [facility] 2015-07-21 03:39:00 2015-07-21 03:39:00 Unknown SARAH [facility] [id number] [facility] 2015-07-21 03:39:00 2015-07-21 03:39:00 Unknown SARAH [facility] [id number] [facility] 2015-07-21 02:39:00 2015-07-21 02:39:00 Unknown SARAH [facility] [id number] [facility] 2015-07-21 02:39:00 2015-07-21 02:39:00 Unknown SARAH [facility] [id number] [facility] 2015-07-21 02:39:00 2015-07-21 02:39:00 Unknown SARAH [facility] [id number] [facility] 2015-07-21 02:39:00 2015-07-21 02:39:00 Unknown MHIEALT [facility] [id number] [facility] 2015-07-20 21:39:00 2015-07-20 21:39:00 Outpatient [facility] [id number] eClinicalWorks 2015-01-28 21:15:00 2015-01-28 21:15:00 not feeling good MHIEALT [facility] [id number] [facility] 2015-01-28 21:15:00 2015-01-28 21:15:00 not feeling good MHIEALT [facility] [id number] [facility] 2015-01-28 21:15:00 2015-01-28 21:15:00 not feeling good MHIEALT [facility] [id number] [facility] 2015-01-28 21:15:00 2015-01-28 21:15:00 not feeling good MHIEALT [facility] [id number] [facility] 2015-01-28 20:15:00 2015-01-28 20:15:00 not feeling good MHIEALT [facility] [id number] [facility] 2015-01-28 20:15:00 2015-01-28 20:15:00 not feeling good MHIEALT [facility] [id number] [facility] 2015-01-28 20:15:00 2015-01-28 20:15:00 not feeling good MHIEALT [facility] [id number] [facility] 2015-01-28 20:15:00 2015-01-28 20:15:00 not feeling good MHIEALT [facility] [id number] [facility] 2015-01-28 15:15:00 2015-01-28 15:15:00 Outpatient [facility] [id number] eClinicalWorks 2014-11-21 19:57:00 2014-11-21 19:57:00 lab results - LMOM MHIEALT [facility] [id number] [facility] 2014-11-21 19:57:00 2014-11-21 19:57:00 lab results - LMOM MHIEALT [facility] [id number] [facility] 2014-11-21 19:57:00 2014-11-21 19:57:00 lab results - LMOM MHIEALT [facility] [id number] [facility] 2014-11-21 19:57:00 2014-11-21 19:57:00 lab results - LMOM MHIEALT [facility] [id number] [facility] 2014-11-21 18:57:00 2014-11-21 18:57:00 lab results - LMOM MHIEALT [facility] [id number] [facility] 2014-11-21 18:57:00 2014-11-21 18:57:00 [facility] [id number] [facility] 2014-11-21 18:57:00 2014-11-21 18:57:00 [facility] [id number] [facility] 2014-11-21 18:57:00 2014-11-21 18:57:00 lab results - LMOM [facility] [id number] [facility] 2014-11-20 14:00:00 2014-11-20 14:00:00 Racing Physical- Cam e in on Thursday 11/16, but forms have to be filled out by MD or DO MEGHAN CORTES [facility] [id number] [facility] 2014-11-20 14:00:00 2014-11-20 14:00:00 Racing Physical- Cam e in on Thursday 11/16, but forms have to be filled out by MD or DO MEGHAN CORTES [facility] [id number] [facility] 2014-11-20 14:00:00 2014-11-20 14:00:00 Racing Physical- Cam e in on Thursday 11/16, but forms have to be filled out by MD or DO MEGHAN CORTES [facility] [id number] [facility] 2014-11-20 14:00:00 2014-11-20 14:00:00 Racing Physical- Cam e in on Thursday 11/16, but forms have to be filled out by MD or DO MEGHAN CORTES [facility] [id number] [facility] 2014-11-20 13:00:00 2014-11-20 13:00:00 Racing Physical- Cam e in on Thursday 11/16, but forms have to be filled out by MD or DO MEGHAN CORTES [facility] [id number] [facility] 2014-11-20 13:00:00 2014-11-20 13:00:00 Racing Physical- Cam e in on Thursday 11/16, but forms have to be filled out by MD or DO MEGHAN CORTES [facility] [id number] [facility] 2014-11-20 13:00:00 2014-11-20 13:00:00 Racing Physical- Cam e in on Thursday 11/16, but forms have to be filled out by MD or DO MEGHAN COTRES [facility] [id number] [facility] 2014-11-20 13:00:00 2014-11-20 13:00:00 Racing Physical- Cam e in on Thursday 11/16, but forms have to be filled out by MD or DO MEGHAN CORTES [facility] [id number] [facility] Results Test Description Test Time Test Comments Results Result Comments Source ECG 12 lead 2019-07-31 12:35:04 Test Item Ventricular rate (test code = 253) 68 Atrial rate (test code = 255) 68 [place] interval (test code = 266) 166 QRSD [...] Inferior leads- [facility] Chest 1 Vw [id number] 10:55:32Hm Interface, Radiology Results Incoming - 07/31/2019 10:58 AM CDTEXAMINATION: XR CHEST 1 VW PORTABLECLINICAL HISTORY: 43 years Male palpitationsCOMPARISON: 06/09/2019IMPRESSION:No acute cardiopulmonary disease.FINDINGS:The cardiomediastin al silhouette, lungs, and regional skeletal structures are within normal limits for age. [facility]-[id number] MethodistBasic metabolic [id number] 10:09:01* Test Item Value Reference Range Interpretation Comments Glucose (test code = 2345-7) 98 mg/dL 73-118 BUN (test code = 3094-0) 11 mg/dL 7-22 Calcium (test code = 18218-2) 8.9 mg/dL 8-10.3 Creatinine (test code = 2160-0) 0.7 mg/dL 0.7-1.2 Sodium (test code = 2951-2) 136 128- 145 mEq/L Potassium (test code = 2823-3) 3.2 3.6- 5.1 mEq/L L Chloride (test code = 2075-0) 103 98- 108 mEq/L CO2 (test code = 8-9) 27 18- 33 mEq/L Anion gap (test code = 09191-3) 6@ANIO 7- 15 mEq/L L Lab Interpretation (test code = 87779-5) [facility]normal [facility] and nbuelgimuwkh1604-73-57 10:09:01* Test Item Value Reference Range Interpretation Comments WBC (test code = 50840-9) 6.55 4.50- 11.00 k/uL RBC (test code = 19019-4) 4.54 m/uL 4.4-6 HGB (test code = 718-7) 14.7 g/dL 14-18 HCT (test code = 4544-3) 40.7 % 41-51 L MCV (test code = 787-2) 89.6 fL 82-100 MCH (test code = 785-6) 32.4 pg 27-34 MCHC (test code = 786-4) 36.1 g/dL 31-37 RDW - SD (test code = 22854-4) 42.1 fL 37-55 MPV (test code = 55782-9) 9.4 fL 8.8-13.2 Platelet count (test code = 00414-3) 228 150- 400 k/uL Neutrophils (test code = 50111-1) 55.9 % 39-69 Lymphocytes (test code = 61774-9) 33.6 % 25-45 Monocytes (test code = 33766-7) 8.2 % 0-10 Eosinophils (test code = 48305-6) 1.8 % 0-5 Basophils (test code = 84843-5) 0.5 % 0-1 Lab Interpretation (test code = 34557-5) Abnormal [facility] natriuretic pep, [id number] 10:09:01* Test Item Value Reference Range Interpretation Comments BNP, I-Stat (test code = 71302-7) <20 0-100 [facility] MethodistTroponin, C-Bpqc2754-80Hpuq3120-20-92 10:09:01* Test Item Value Reference Range Interpretation Comments Troponin, I-Stat (test code = 2359) 0.00 ng/mL 0-0.08 0.09 - 1.49 ng/ml May indicate increased risk of acute coronary syndrome. >=1.5 ng/ml Consistent with acute myocardial infarction. The diagnostic value of a single normal or non-diagnostic result is questionable. Serial samples at 2-6 hour intervalsare required to rule out acute myocardial injury. Eric MethodistEstimated [id number] 10:09:01* Test Item Value Reference Range Interpretation Comments Estimated GFR (test code = 5488) >=90 mL/min/1.73 m2 Catergory Units InterpretationG1 >=90 Normal or highG2 60-89 Mildly xsqsmjkshP9v 45-59 Mildly to moderately gwsiaxmmxM1z 30-44 Moderately to severely decreasedG4 15-29 Severely decreasedG5 <15 Kidney failureThe eGFR was calculated using the Chronic Kidney Disease Epidemiology Collaboration (CKD-EPI) equation. Interpretation is based on recommendations of the National Kidney Foundation-Kidney Disease Outcomes Quality Initiative (NKF-KDOQI) published in 2014. Eric LeesECSaji ED Preliminary Interpretation - Not an Foewk2433-56-34 09:20:43Emeterio Anderson MD 07/31/2019 11:19 [facility] ED Preliminary Interpretation - Not an OrderPerformed by: Emeterio Anderson MDAuthorized by: Emeterio Anderson MD ECG reviewed by ED Physician in the absence of a delivery lead: yes Interpretation: Interpretation: normal Rate: ECG rate: 68 ECG rate assessment: normal Rhythm: Rhythm: sinus rhythm Ectopy: Ectopy: none QRS: QRS axis: Normal QRS intervals: NormalConduction: Conduction: normal ST segments: ST segments: NormalT waves: T waves: normal [facility] Abdomen Pelvis W Flkviwbb3749-40-63 18:29:51Hm Interface, Radiology Results 07/18/2019 6:33 PM [...] for 1.2 cm right lobe césar er lesion.[facility]-[id number] MethodistCT Angiogram Pe Xyqzk1627-88-01 18:25:12Hm Interface, Radiology Results 07/18/2019 6:28 PM [...] are intact.IMPRESSION:No pulmonary embolism or other acute process.[facility]-[id number] MethodistComprehensive metabolic vpnav7148-66-92 17:21:40* Test Item Value Reference Range Interpretation Comments Sodium (test code = 2951-2) 140 128- 145 mEq/L Potassium (test code = 2823-3) 3.3 3.6- 5.1 mEq/L L CO2 (test code = 2027-9) 28 18- 33 mEq/L Chloride (test code = 2075-0) 105 98- 108 mEq/L Glucose (test code = 2345-7) 91 mg/dL 73-118 Calcium (test code = 64307-4) 9.6 mg/dL 8-10.3 BUN (test code = [...] g/dL 6.4-8.1 Anion gap (test code = 90427-3) 7@ANIO 7- 15 mEq/L A/G ratio (test code = 1759-0) 1.5 0.7-3.8 Lab Interpretation (test code = 21611-8) Abnormal [facility] MethodistAmylase qllxv3900-82-25 17:21:40* Test Item Value Reference Range Interpretation Comments Amylase (test code = 1798-8) 50 U/L 14-97 [place] ZsgdrafrwYqjdyafahm4716-16-51 17:21:40* Test Item Value Reference Range Interpretation Comments Glucose, UA (test code = 44002-7) Negative Negative Bilirubin, UA (test code = 5770-3) Negative Negative Ketones, UA (test code = 2514-8) Negative Negative Specific gravity, UA (test code = 5811-5) 1.010 1.001-1.035 Blood, UA (test code = 5794-3) Trace Negative A pH, UA (test code = 5803-2) 6.0 5.0-8.5 Protein, UA (test code = 97668-0) Negative Negative Urobilinogen, UA (test code = 59152-9) <2.0 <2.0 Nitrite, UA (test code = 5802-4) Negative Negative Leukocyte esterase, UA (test code = 5799-2) Negative Negative Color, UA (test code = 5778-6) Yellow Appearance, UA (test code = 5767-9) Clear Lab Interpretation (test code = 72812-9) Abnormal [facility] MethodistCOVID BioRef (NCOVB)2019-06-12 16:39:14* Test Item Value Reference Range Interpretation Comments COVID BioRef (NCOVB) (test code = 44864-9) Presumptive Posit jannette for 2019-nCoV Not Detected A Testing performed at [facility] [address] [place] [address] NOTE: The viral concentration is likely to be near or below the limit of detection. Re-collection of a new sample is suggested, if clinically indicated. NOTE: The COVID-19 assay has been cleared by the U.S. Food and DrugAdministration under the Emergency Use Authorization (EUA). [facility] is designated as a high complexity laboratory by the ClinicalLaboratory Improvement Amendments of 1988(CLIA) and is qualified to performthis test. ASSAY INFORMATION: Real Time RT-PCR Lab Interpretation (test code = 71928-2) Abnormal [facility] MethodistStrep screen ggbmyhx8715-52-38 19:04:10* Test Item Value Reference Range Interpretation Comments Strep screen culture isolate (test code = 2246) No bet a hemolytic Streptococci isolated Specimen Information Specimen Source: ThroatSpecimen Site: Not otherwise specified [facility]rep, rapid poulybg7691-01-96 17:25:18* Test Item Value Reference Range Interpretation Comments Group A strep, rapid antigen result (test code = 30961 79) Negative for Group A Streptococcus antigen. Specimen Informat ionSpecimen Source: ThroatSpecimen Site: Not otherwise specified [facility]istRespiratory pathogen ekrcq6323-29-56 16:14:34Respiratory pathogen panelNegative for all pathogens tested:Negative for AdenovirusNegative for Coronavirus BHX3Kdcnglmu for Coronavirus NG86Ppgqhtiw for Coronavirus 229ENegative for Coronavirus YZ97Lkyubyot for Human MetapneumovirusNegative for Rhinovirus/EnterovirusNegative for Influenza ANegative for Influenza A/H1N egative for Influenza A/N2Oencautq for Influenza A/H1-2009Negative for Influenza BNegative for [...] Comment: Specimen InformationSpecimen Source: NaresSpecimen Site: Right [facility]XR Chest 2 [id number] 12:47:32Hm Interface, Radiology Results - 06/09/2019 12:50 PM CDTEXAMINATION: XR CHEST 2 VWCLINICAL HISTORY: cough sore throatCOMPARISON: None.IMPRESSION:H eart and mediastinum: Cardiomediastinal silhouette is normal in contour.Lungs an d pleura: Lungs are clear. There is no focal airspace disease, pleural effusion or pneumothorax. Bones: No acute osseous abnormality.[facility]-[id number] and approved by international affairs vice president/fellow: Ibis Salazar, Jorje Vasquez MD, personally reviewed the images and resident's/fellow's findings and agree with the final report.Eric Silvafluenza antigen test, reflex negative to HDP9110-76-59 11:47:13* Test Item Value Reference Range Interpretation Comments Influenza antigen (test code = 38389-8) Negative for Influenza A/B antigen. Specimen InformationSpecimen Source: NaresSpecimen Site: Right Eric Lees
--- OUTSIDE RECORDS SUMMARY | 2019-08-03 18:54 | XMS REPORT | Continuity of Care Document ---
Author Author Tidemark SINGH Antunez Organization [employer] Address Unknown Phone Unavailable Care Team Providers Care Receiver Bulk System Name Role Phone [employer] Unavailable Un available Problems Problem [...] [facility] Heat exhaustion Active Diagnosis 09/27/2015 [facility] Hospital discharge follow-up A ctive Diagnosis 0 09/27/2015 [facility] Daytime somnolence Active Problem 07/13/2019 [facility] Snoring Active Problem 07/13/2019 [facility] Screening for prostate cancer Active Diagnosis 0 06/22/2018 [facility] Screening for colon cancer Act jannette Diagnosis 0 06/22/2018 [facility] Routine physical examination A ctive Diagnosis 0 06/22/2018 [facility] COVID-19 virus infection Active Problem 07/13/2019 [facility] Anxiety Active Problem 07/28/2019 [facility] Other specified respiratory disorders Active Diagnosis 06/20/2019 [facility] Complaint of paresthesia Active Problem 07/28/2019 [facility] Psychophysiological insomnia A ctive Problem [facility] History of 2019 novel coronavirus disease (COVID-19) Active Problem 07/28/2019 [facility] Sore throat Active Diagnosis 07/28/2019 [facility] Medications Medication Details Route Status Patient Instructions Ordering Provider Order Date Source Zithromax Z-Juan 2 tablets on the first day, then 1 tablet daily for 4 days Orally Active 250 MG Orally Once a day [place] 07/20/2019 [facility] Tessalon Perles 1 capsule as n eeded Orally Active 100 MG Orally Three times a day [place] 07/20/2019 [facility] ProAir HFA 1 puff as needed Inhalation Active 108 (90 Base) MCG/ACT Inhalation every 4 hrs [place] 06/15/2019 [facility] HydrOXYzine HCl 1 tablet as ne eded Orally Active 10 MG Orally every -6 8 hrs [place] 06/15/2019 [facility] Biaxin 1 tablet Orally Active 500 mg Orally every 12 hrs [place] 10/29/2017 [facility] Medrol as directed & to be sta rted mon. am as discussed w/ pt Orally Active 4 mg Orally as directed over 6 days Servin 10/22/2017 [facility] AndroGel Pump 1 application to each shoulder in the morning Transdermal Active 20.25 MG/ACT (1.62%) Transdermal Once a day [place] 06/03/2017 [facility] Vitamin D (Ergocalciferol) 1 c apsule Orally Active 38942 UNIT Orally once per week LAST REFILL, NEEDS BLOOD WORK Bhupinder Gilbert 06/03/2017 [facility] Losartan Potassium-HCTZ 1 tabl et Orally Active 100-25 MG Orally Once a day Ghebranious 04/26/2017 [facility] Testosterone Cypionate 1 ml Intramuscular Active 200 MG/ML Intramuscular every 2 weeks Carl 03/27/2016 [facility] Testosterone Cypionate 1 ml Intramuscular Active 200 MG/ML Intramuscular every 2 weeks Carl 03/27/2016 [facility] Vitamin D (Ergocalciferol) 1 c apsule Orally Active 93748 UNIT Orally once per week Carl 03/27/2016 [facility] AndroGel Pump 1 application to each upper outer arm Transdermal Active 20.25 MG/ACT (1.62%) Transdermal Once a day Carl 03/25/2016 [facility] AndroGel Pump 1 application to each upper outer arm Transdermal Active 20.25 MG/ACT (1.62%) Transdermal Once a day Carl 03/25/2016 [facility] Medrol (Juan) as directed Orally Active 4 MG Orally as directed Carl 03/10/2016 [facility] Naproxen 1 tablet as needed Orally Active 500 MG Orally every 12 hrs prn Carl 03/10/2016 [facility] Flomax [address] the same meal each day Orally Active 0.4 MG Orally Once a day Ghebr anious 07/20/2015 [facility] Vitamin D (Ergocalciferol) 1 c apsule Orally Active 71169 UNIT Orally weekly Jose 11/21/2014 [facility] Vitamin D (Ergocalciferol) 1 c apsule Orally Active 51870 UNIT Orally once per week LAST REFILL, NEEDS BLOOD WORK [place] [facility] Excedrin Extra Strength 2 tabl ets as needed Orally Active 250-250-65 MG Orally every 6 hrs [place] [facility] Losartan Potassium-HCTZ 1 tabl et Orally Active 100-25 MG Orally Once a day [place] [facility] Excedrin Extra Strength 2 tabl ets as needed Orally Active 250-250-65 MG Orally every 6 hrs [place] [facility] Losartan Potassium-HCTZ TAKE 1 TABLET BY MOUTH EVERY DAY NA Active 100-25 MG Ghebranious [facility] Citalopram Hydrobromide 1 tabl et Orally Active 10 MG Orally Once a day [place] [facility] Trazodone HCl 1 tablet at bedt ricardo as needed Orally Active 50 MG Orally Once a day [place] [facility] Allergies, Adverse Reactions, Alerts Substance Category Reaction Severity Reaction type Status Date Reported Comments Source penicillin Adverse Reaction Info Not Available Adverse Reaction Active 06/15/2019 [facility] Immunizations Immunization Date Given Site Status Last Updated Comments Source FLU 3YRS & UP 11667 10/01/2015 completed [facility] PNEUMOCOCCAL VACCINE 10/01/2015 completed [facility] Results No [...] Value Date Comments Source Weight 263 08/26/2018 [facility] Height 70 0 08/26/2018 [facility] Heart Rate 72 08/26/2018 [facility] Diastolic (mm Hg) 84 08/26/2018 [facility] Systolic (mm Hg) 132 08/26/2018 [facility] Weight 260 06/21/2018 [facility] Height 70 0 06/21/2018 [facility] Heart Rate 75 06/21/2018 [facility] Diastolic (mm Hg) 92 06/21/2018 [facility] Systolic (mm Hg) 128 06/21/2018 [facility] Weight 260 10/22/2017 [facility] Height 70 0 10/22/2017 [facility] Temperature Oral [...] have to be filled out by or [id number] 11/20/2014 11/20/2014 [facility] Racing Physical- Came in on Thursday 11/16, but forms have to be filled out by or [id number] 11/20/2014 11/20/2014 [facility] Racing Physical- Came in on Thursday 11/16, but forms have to be filled out by or [id number] 11/20/2014 11/20/2014 [facility] Racing Physical- Came in on Thursday 11/16, but forms have to be filled out by or [id number] 11/20/2014 11/20/2014 [facility] Racing Physical- Came in on Thursday 11/16, but forms have to be filled out by or [id number] 11/20/2014 11/20/2014 [facility] Racing Physical- Came in on Thursday 11/16, but forms have to be filled out by or [id number] 11/20/2014 11/20/2014 [facility] Racing Physical- Came in on Thursday 11/16, but forms have to be filled out by or [id number] 11/20/2014 11/20/2014 [facility] Racing Physical- Came in on Thursday 11/16, but forms have to be filled out by or [id number] 11/20/2014 11/20/2014 [facility] lab results - LMOM [id number] 11/21/2014 11/21/2014 [facility] lab results - LMOM [id number] 11/21/2014 11/21/2014 [facility] lab results - LMOM [id number] 11/21/2014 11/21/2014 [facility] lab results - LMOM [id number] 11/21/2014 11/21/2014 [facility] lab results - LMOM [id number] 11/21/2014 11/21/2014 [facility] lab results - LMOM [id number] 11/21/2014 11/21/2014 [facility] lab results - LMOM [id number] 11/21/2014 11/21/2014 [facility] lab results - LMOM [id number] 11/21/2014 11/21/2014 [facility] not feeling good [id number] 01/28/2015 01/28/2015 [facility] not feeling good [id number] 01/28/2015 01/28/2015 [facility] not feeling good [id number] 01/28/2015 01/28/2015 [facility] not feeling good [id number] 01/28/2015 01/28/2015 [facility] not feeling good [id number] 01/28/2015 01/28/2015 [facility] not feeling good [id number] 01/28/2015 01/28/2015 [facility] not feeling good [id number] 01/28/2015 01/28/2015 [facility] not feeling good [id number] 01/28/2015 01/28/2015 [facility] Unknown [id number] 07/21/2015 07/21/2015 [facility] Unknown [id number] 07/21/2015 07/21/2015 [facility] Unknown [id number] 07/21/2015 07/21/2015 [facility] Unknown [id number] 07/21/2015 07/21/2015 [facility] Unknown [id number] 07/21/2015 07/21/2015 [facility] Unknown [id number] 07/21/2015 07/21/2015 [facility] Unknown [id number] 07/21/2015 07/21/2015 [facility] FOLLOW UP FROM ER [id number] 09/23/2015 09/23/2015 [facility] FOLLOW UP FROM ER [id number] 09/23/2015 09/23/2015 [facility] FOLLOW UP FROM ER [id number] 09/23/2015 09/23/2015 [facility] FOLLOW UP FROM ER [id number] 09/23/2015 09/23/2015 [facility] FOLLOW UP FROM ER [id number] 09/23/2015 09/23/2015 [facility] FOLLOW UP FROM ER [id number] 09/23/2015 09/23/2015 [facility] Referral [id number] 09/24/2015 09/24/2015 [facility] Referral [id number] 09/24/2015 09/24/2015 [facility] Referral [id number] 09/24/2015 09/24/2015 [facility] Referral [id number] 09/24/2015 09/24/2015 [facility] Referral [id number] 09/24/2015 09/24/2015 [facility] TMT- [id number] 10/01/2015 10/01/2015 [facility] TMT- [id number] 10/01/2015 10/01/2015 [facility] TMT- [id number] 10/01/2015 10/01/2015 [facility] TMT-Saji [id number] 10/01/2015 10/01/2015 [facility] CHECK BLOOD SUGAR [id number] 03/10/2016 03/10/2016 [facility] CHECK BLOOD SUGAR [id number] 03/10/2016 03/10/2016 [facility] CHECK BLOOD SUGAR [id number] 03/10/2016 03/10/2016 [facility] Clinical Advice During Busin ess Hours [id number] 03/23/2016 03/23/2016 [facility] Clinical Advice During Busin ess Hours [id number] 03/23/2016 03/23/2016 [facility] Unknown [id number] 03/27/2016 03/27/2016 [facility] Procedures No Data Provided for This Section Assessment and Plan No Data Provided for This Section Plan of Care No Data Provided for This Section Social History Social History Date Source Social History ElementQualifiersDate Rep orted 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 Status , Is micronesian your prim riki language? Yes Mar 27, [...]
--- NOTE | 2019-08-03 19:09 | Diagnostic Imaging Report ---
Examination: Single AP view of the chest. COMPARISON: None. INDICATION: Chest pain DISCUSSION: Lines/tubes: None. Lungs: The lungs are well inflated and clear. No pneumonia or pulmonary edema. Pleura: No pleural effusion or pneumothorax. Heart and mediastinum: The heart and the mediastinum are unremarkable. Bones and soft tissues: No acute bony abnormalities. IMPRESSION: 1. No acute cardiopulmonary abnormalities. Signed by: Dr. Tu Hull M.D. on 08/03/2019 7:06 PM
[2019-08-03 19:11] LABS: THYROID STIMULATING HORMONE 0.392 uIU/mL (0.350-4.940)
[2019-08-03 19:23] LABS: INR 0.89; PARTIAL THROMBOPLASTIN TIME 26.5 seconds (23.8-35.5); PROTHROMBIN TIME 12.6 seconds (11.9-14.5)
--- NOTE | 2019-08-03 19:53 | NUR ---
COVID-19 SWAB OBTAINED AT THIS TIME. PT TOLERATED WELL. NO ACUTE DISTRESS NOTED.
[2019-08-03 20:00] VITALS: BP 143/82
[2019-08-03] MEDS ORDERED: METOPROLOL SUCC25 MG PO (20:20)
[2019-08-03] MEDS ORDERED: METRONIDAZOLE250 MG PO (20:20)
[2019-08-03] MEDS ORDERED: AZITHROMYCIN250 MG (20:20)
[2019-08-03] MEDS ORDERED: AZELASTINE137 MCG/0. (20:20)
[2019-08-03] MEDS ORDERED: LOSARTAN-HCTZ1 EAC1 PO (20:20)
--- NOTE | 2019-08-03 21:00 | NUR ---
patient is a new admit that arrived from the ER patient is awake and talking. patient has been transferred into the bed. bed is in the lowest position and call light is within reach. will continue to monitor patient.
[2019-08-03 21:13] VITALS: BP 143/82
[2019-08-03 21:21] VITALS: BP 143/82
[2019-08-04] VITALS: BP 119/77
[2019-08-04 03:03] LABS: CREATINE KINASE MB 1.5 ng/mL (0-5.0)
[2019-08-04 04:00] VITALS: BP 155/87
[2019-08-04] MEDS: FAMOTIDINE 20 MG/2 ML VIAL IV SCH (05:32)
[2019-08-04] MEDS: METOPROLOL TARTRATE 25 MG TAB PO SCH (05:33)
[2019-08-04 06:00] LABS: BASOPHILS % 0.4 % (0.0-1.0); EOSINOPHILS # (AUTO) 0.2 (0.0-0.4); EOSINOPHILS % 1.9 % (0.0-6.0); HEMATOCRIT 38.6 % (38.2-49.6); HEMOGLOBIN 13.7 g/dL (14.0-18.0); LYMPHOCYTES # (AUTO) 3.1 (1.0-3.2); LYMPHOCYTES % 40.4 % (18.0-39.1); MEAN CORPUSCULAR HEMOGLOBIN 31.5 pg (28-32); MEAN CORPUSCULAR HGB CONC 35.5 g/dL (31-35); MEAN CORPUSCULAR VOLUME 88.7 fL (81-99); MONOCYTES # (AUTO) 0.6 (0.2-0.8); MONOCYTES % 7.5 % (4.4-11.3); NEUTROPHILS # (AUTO) 3.8 (2.1-6.9); NEUTROPHILS % 49.5 % (38.7-80.0); PLATELET COUNT 232 x10e3/uL (140-360); RED BLOOD COUNT 4.35 x10e6/uL (4.3-5.7); RED CELL DISTRIBUTION WIDTH 13.2 % (11.7-14.4)
[2019-08-04 06:24] LABS: ANION GAP 12.2 mmol/L (8-16); BLOOD UREA NITROGEN 9 mg/dL (7-26); BUN/CREATININE RATIO 10 (6-25); CALCIUM 8.7 mg/dL (8.4-10.2); CARBON DIOXIDE 27 mmol/L (22-29); CHLORIDE 105 mmol/L (98-107); CHOL/HDL RATIO 3.9 (3.9-4.7); CHOLESTEROL 132 MD/DL (0-199); CREATININE, SERUM 0.86 mg/dL (0.72-1.25); EST GLOMERULAR FILTRATION RATE > 60 ML/MIN (60-); GLUCOSE 85 mg/dL (74-118); HDL CHOLESTEROL 34 MG/DL (40-60); LDL CHOLESTEROL 70 MG/DL (60-130); POTASSIUM 3.2 mmol/L (3.5-5.1); SODIUM 141 mmol/L (136-145); TRIGLYCERIDES 142 MG/DL (0-149)
--- NOTE | 2019-08-04 06:42 | NUR ---
patient is resting in the bed, bed is in lowest position and call light is within reach.
[2019-08-04 06:46] LABS: CREATINE KINASE 140 IU/L (30-200)
--- NOTE | 2019-08-04 07:10 | NUR ---
ASSUMED. CARE. AAOX3. ACYANOTIC. RESTING IN BED. NO DISTRESS NOTED. CALL LIGHT IN REACH. SIDE RAILS UP X2. BED LOW.
[2019-08-04] MEDS ORDERED: POTASSIUM CHLORIDE 10MEQ EA PO ONE (07:45)
--- NOTE | 2019-08-04 07:58 | History and Physical ---
REASON FOR ADMISSION: Patient came in with palpitation and chest pains. HISTORY OF PRESENTING ILLNESS: Mr. Michael Burris woke up suddenly, was lying down and had no complaints, only started to have some palpitations and was continued, patient felt shortness of breath with it, but came into the emergency room, was admitted to the hospital for palpitation and rule out chest pain, rule out coronary artery syndrome. PAST MEDICAL HISTORY: History of hypertension, history of sleep apnea. PAST SURGICAL HISTORY: Noncontributory. SOCIAL HISTORY: No EtOH. No IV drug abuse. No history of smoking. Positive for chewing tobacco. The patient chews about half a can a day. FAMILY HISTORY: Noncontributory. REVIEW OF SYSTEMS: DICTATION CANCELED. MD CUCO Bray/MODL /[id number]
[2019-08-04 08:00] VITALS: BP 123/86
[2019-08-04] MEDS ORDERED: POTASSIUM CHLORIDE 20 MEQ TAB CR PO ONE (08:00)
[2019-08-04] MEDS ORDERED: LOSARTAN POTASSIUM 100 MG TAB PO SCH (09:00)
[2019-08-04] MEDS ORDERED: ASPIRIN 81 MG ENTERIC COATED PO SCH (09:00)
--- NOTE | 2019-08-04 11:09 | NUR ---
AAOX3. ACYANOTIC. TRANSFERRED FROM UNIT VIA WHEELCHAIR FOR ORDERED STRESS TEST.. NO DISTRESS NOTED.
[2019-08-04 12:00] VITALS: BP 127/87
[2019-08-04 12:45] LABS: CREATINE KINASE 163 IU/L (30-200)
--- NOTE | 2019-08-04 13:05 | History and Physical ---
CHIEF COMPLAINT: This patient came into the hospital for palpitation. HISTORY OF PRESENT ILLNESS: The patient was in usual state of health until the patient was lying down with no complaints and suddenly noted to have some palpitations which made him short of breath. The patient came into emergency room, was admitted to the hospital for palpitations. The patient has also had some chest pain as per ER notes and the patient has had some anxiety in relation to the COVID crisis and therefore was referred to the ER. PAST MEDICAL HISTORY: History of hypertension, history of sleep apnea, and history of dipping tobacco. REVIEW OF SYSTEMS: Negative for chest pain as far as now. However, the patient does not complain of chest pain. Shortness of breath, positive. Palpitations, positive. No nausea. No vomiting. No diarrhea. No constipation. No rectal bleeding. No hematochezia. No hematemesis. No diplopia. No blurry vision either. SOCIAL HISTORY: No EtOH. No IV drug abuse. Positive for dipping. FAMILY HISTORY: Noncontributory. ALLERGIES: THE PATIENT IS ALLERGIC TO PENICILLIN. PHYSICAL EXAMINATION: VITAL SIGNS: Temperature is 97.7, pulse of 68, respirations of 20, and blood pressure is 155/87. HEENT: Normocephalic and atraumatic. Pupils are reactive. CVS: S1 and S2 normal. Regular rate and rhythm. ABDOMEN: Nontender, nondistended. EXTREMITIES: No clubbing, no cyanosis, no edema. LABORATORY VALUES: White count 9.75, hemoglobin 14.8, and hematocrit of 41.4. Chemistry shows sodium 138, potassium is 3.1, BUN of 11, and creatinine 0.86. Coags are normal. D-dimer is negative. Serology; romano virus is pending. IMAGING STUDIES: Chest x-ray shows no acute cardiopulmonary abnormalities. ASSESSMENT: Mr. Michael Burris is with, 1. Chest pain. Troponins x3 have been negative. The patient's LDL is 70, HDL is 34. TSH is 0.392. PLAN: 1. The patient can be discharged home, pending an echocardiogram. 2. We will go ahead and for his hyperkalemia, stop his hydrochlorothiazide and replace potassium today. 3. For his sleep apnea, continue on BiPAP. 4. Continue monitoring the patient's telemetry as far as now, there are no concerns. Plan is for discharge today and follow up with Cardiology as an outpatient basis. Echocardiogram to be reviewed. Further recommendation per clinical course. We will continue to monitor the patient along the way and also follow up with Dr. Rivera, his primary care physician. MD BERNADETTE BrayJ/MODL /[id number]
[2019-08-04 16:00] VITALS: BP 137/84
--- NOTE | 2019-08-04 16:21 | Consultation ---
DATE OF CONSULTATION: Cardiac Consultation REASON FOR CONSULTATION: Palpitation and chest pain. HISTORY OF PRESENT ILLNESS: A 43-year-old gentleman, who is known with longstanding history of hypertension. However, he does have palpitations every now and then, which are not very frequent. In the last few weeks, they are becoming more frequent and more cumbersome, but more importantly noted when he does activity. He will have chest pressure and chest tightness. He was alarmed by that. He came to the emergency room and admitted. Serial cardiac enzymes are normal. Cardiac consultation is obtained. I visited with the patient, who is now doing well. 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 REVIEW OF SYSTEMS: GENERAL: No fever. No chills. HEENT: No vision problem. No hearing problem. PULMONARY: No chest pain. CARDIAC: As per above. No syncope or presyncope. GI: GERD symptoms. : No hematemesis. No melena. MUSCULOSKELETAL: No aches. No pain. NEUROLOGICAL: No seizure activity. No localized weakness. HEMATOLOGY: No easy bruising or bleeding. SOCIAL HISTORY: He is . He chew tobacco. He does not smoke. He does not drink alcohol. 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 MEDICATIONS: Losartan/hydrochlorothiazide 100/25 one tablet a day, metoprolol succinate added. ALLERGIES: PENICILLIN. PAST MEDICAL HISTORY: 1. Hypertension. 2. GERD. 3. Liver lesion was found on workup at 1.4 cm, to be followed by GI. 4. Obesity. FAMILY HISTORY: Father at age 65. He was diabetic. Mother of breast cancer. She was in her 60s. No brother, one healthy sister, and 4 healthy sons. No daughters. PHYSICAL EXAMINATION: VITAL SIGNS: Height of 5 feet 10 inches, weight of 232 pounds, blood pressure 120/80, heart rate of 60, and respiratory rate of 18. HEENT: Pupils are equal and reactive. NECK: No elevation of jugular venous pulsation. No bruit. CHEST: Clear to auscultation and percussion. HEART: PMI 5th left intercostal space. Normal first and second heart sound. ABDOMEN: Soft with good bowel sounds. No organomegaly. No abdominal bruits. EXTREMITIES: No cyanosis. No clubbing. No edema. NEUROLOGIC: Nonfocal. LABORATORY DATA: Sodium of 141, potassium 3.2, BUN of 9, and creatinine of 0.86. White blood cell count of 7.7, hemoglobin 13.7, hematocrit 38%, and platelet count of 232,000. TSH of 0.39. Triglycerides 142, cholesterol of 132, HDL of 34, and LDL of 132. IMPRESSION AND PLAN: 1. Palpitation. 2. Chest pain. 3. Hypertension. 4. Gastroesophageal reflux disease. 5. Liver lesion on investigation. 6. Hypercholesterolemia as evident by his lab drawn here. 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 Cardiac catheterization will be not a bad choice at all versus a simple stress test. He and his elected for noninvasive approach, so we will schedule his stress test. We will follow the patient's progression with you. MD THERESA Orta/BESSY /[id number]
--- NOTE | 2019-08-04 18:21 | Operative Report ---
DATE OF PROCEDURE: SURGEON: Nadya Magallon MD DICTATION NUMBER: [id number] TITLE: Cardiac stress test. TECHNICAL DETAILS: The protocol is Frederic with target heart rate of 150 per minute. RESULTS: 1. The patient exercised for a total of 8 minutes and 10 seconds. 2. Heart rate increased from 66 per minute to 162 per minute. 3. Blood pressure increased from 130/80 to 194/80. 4. No chest pain. 5. No EKG changes. IMPRESSION AND PLAN: Negative cardiac stress test with good exercise tolerance. In fact, we have the patient to exercise greater than his target heart rate of 150 for more assurances. Limitations of negative stress test are discussed and explained. Nadya Magallon MD MOJ/MODL /[id number]
--- NOTE | 2019-08-04 19:36 | NUR ---
Received change of shift report from AM nurse. Walking rounds completed
--- NOTE | 2019-08-04 19:52 | NUR ---
Patient d/c home. Paperwork signed. Patient verdalized understanding.
--- NOTE | 2019-08-04 20:09 | NUR ---
Patient left floor ambulating to private car.
[2019-08-05] MEDS ORDERED: METOPROLOL SUCCINATE 25 MG TAB XL PO SCH (09:00)
[2019-08-08] MEDS ORDERED: EXCEDRIN EXTRA1 EAC1 PO (10:22)
[2019-08-08] MEDS ORDERED: PROTONIX20 MG PO (10:22)
[2019-08-08] MEDS ORDERED: LOSARTAN POTAS100 MG PO (10:22)
== END 2019-08-04 20:16 | disposition home or self-care (01) ==
LOC: ER 17:39 → ERHOLD 18:45 → MED/SURG 20:44
PROVIDERS: ADMIT Family Medicine; ATTEND Family Medicine
DX: R07.9 Chest pain, unspecified (principal); R00.2 Palpitations; I10 Essential (primary) hypertension; G47.30 Sleep apnea, unspecified; Z72.0 Tobacco use; Z88.0 Allergy status to penicillin; K21.9 Gastro-esophageal reflux disease without esophagitis; Z83.3 Family history of diabetes mellitus; Z80.3 Family history of malignant neoplasm of breast; K76.9 Liver disease, unspecified; E78.00 Pure hypercholesterolemia, unspecified
CPT/HCPCS: 36415 ×2; 71045; 80048; 80053; 80061; 82550 ×2; 82553 ×2; 83735; 84443; 84484 ×2; 85025 ×2; 85379; 85610; 85730; 87635; 93005; 93017; 93306; 99284; C9113; G0378 ×2; J7030

== ENCOUNTER → 2019-08-11 | Day surgery (SDC) | payer OTHER ==
[~2019-08-11] MED LIST changes: +ACETAMINOPHEN 1000 MG/100 ML 100 ML IV ONE; +AZELASTINE137 MCG/0.; +AZITHROMYCIN250 MG; +EXCEDRIN EXTRA1 EAC1 PO; +HYOSCYAMINE 0.125 MG TAB ONE; +LOSARTAN-HCTZ1 EAC1 PO; +METOCLOPRAMIDE HCL 10 MG/2ML VIAL ONE; +METOPROLOL SUCC25 MG PO; +METRONIDAZOLE250 MG PO; +PANTOPRAZOLE 40 MG 10ML VIAL ONE; +PROPOFOL IV EMULSION 10 MG/ML 20 ML VIAL ONE; +PROTONIX20 MG PO; +SODIUM CHLORIDE 0.9% INJ 10 ML VIAL ONE
[2019-08-11 17:50] VITALS: BP 138/71
[2019-08-11 19:12] LABS: WBC,FECAL (FECAL LACTOFERRIN) NEGATIVE (NEGATIVE)
--- NOTE | 2019-08-11 21:26 | Operative Report ---
DATE OF PROCEDURE: 08/11/2019 SURGEON: Uriel Mckinney MD PROCEDURES: Esophagogastroduodenoscopy with biopsies and colonoscopy with polypectomy and biopsies. INDICATIONS FOR EGD: Upper abdominal pain, acid reflux. INDICATIONS FOR COLONOSCOPY: Lower abdominal pain, loose stools, weight loss. MEDICATIONS: The patient was done under MAC, please see anesthesiologist's note. PROCEDURE IN DETAIL: With the patient in left lateral decubitus position, flexible fiberoptic Olympus gastroscope was introduced into the esophagus under direct visualization without any difficulty. There were some patchy erythema noted in distal esophagus. The scope was then advanced with ease into the stomach. Mucosa overlying the antrum and the body revealed some patchy erythema and [id number] edema. Biopsies were obtained, sent to stain for H pylori. Pylorus was of normal contour and shape, was intubated with ease and the scope was advanced all the way to the second portion of the duodenum. Biopsies were obtained from the proximal second portion and duodenal bulb to rule out sprue. The scope was then withdrawn back into the stomach. It was then withdrawn slowly. Mucosa overlying the fundus and cardia appeared to be within normal limits. The scope was then straightened out, it was subsequently withdrawn. The patient tolerated the procedure well. IMPRESSION: 1. Distal esophagitis. 2. Gastritis, biopsied. Biopsies sent to stain for Helicobacter pylori. 3. Rule out sprue. PLAN: Follow up histology. Initiate Protonix 40 mg one p.o. q.a.m. a.c. PROCEDURE IN DETAIL: The patient was then turned around after adequate lubrication of the anal canal, flexible fiberoptic Olympus colonoscope was inserted into the rectum with ease and advanced all the way to the cecum. Mucosa overlying the cecum appeared to be within normal limits. The ileocecal valve was intubated and the scope was advanced into the terminal ileum. Biopsies were obtained. The scope was then withdrawn back into the colon. It was then withdrawn slowly. Mucosa overlying the ascending and the transverse appeared to be within normal limits. Mild patchy erythema and low-grade edema was noted in the left colon and the rectum and random biopsies were obtained. An approximately 6 mm polyp was removed per snare electrocautery from the sigmoid colon. The scope was then retroflexed into the distal rectum. Small internal hemorrhoids were noted, none of which was actively bleeding. The scope was then straightened out, it was subsequently withdrawn. The patient tolerated the procedure well. An adequate stool specimen was secured and sent for the appropriate studies. IMPRESSION: 1. Mild patchy left-sided colitis. 2. Sigmoid colon polyp, hot snared. 3. Proctitis, mild. 4. Internal hemorrhoids, none actively bleeding. PLAN: Followup histology. Follow up stool studies. Initiate Flagyl 500 mg one p.o. q.i.d. x14 days and Bentyl 10 mg one p.o. t.i.d. The patient might benefit from a followup colonoscopy in 3 to 5 years. Uriel Mckinney MD [facility] [place] [place] /[id number] cc: Michael Mckinney MD
[2019-08-12 12:20] LABS: C DIFFICILE TOXIN A&B AMP PROB NEGATIVE (NEGATIVE)
== END | disposition home or self-care (01) ==
LOC: OR 12:00
PROVIDERS: ATTEND Internal Medicine Gastroenterology
DX: K29.70 Gastritis, unspecified, without bleeding (principal); D12.5 Benign neoplasm of sigmoid colon; K20.9 Esophagitis, unspecified; K51.50 Left sided colitis without complications; K21.9 Gastro-esophageal reflux disease without esophagitis; K62.89 Other specified diseases of anus and rectum; K64.8 Other hemorrhoids; G47.33 Obstructive sleep apnea (adult) (pediatric); R63.4 Abnormal weight loss; K76.0 Fatty (change of) liver, not elsewhere classified; I10 Essential (primary) hypertension; I20.9 Angina pectoris, unspecified; F17.220 Nicotine dependence, chewing tobacco, uncomplicated; Z88.0 Allergy status to penicillin; Z01.812 Encounter for preprocedural laboratory examination; Z11.59 Encounter for screening for other viral diseases; Z79.82 Long term (current) use of aspirin; Z68.34 Body mass index [BMI] 34.0-34.9, adult
CPT/HCPCS: 43239; 45380; 45385; 83630; 83993; 87045; 87177; 87328; 87493; 87635; C9113; J0131; J2704; J2765; 45378